=== PATIENT | female | born 1965 | race Caucasian/White ===

== ENCOUNTER 2024-04-28 21:08 | Outpatient (REF) | payer OTHER, SELFPAY | END 2024-04-28 21:09 | disposition home or self-care (01) | LOC: LAB 21:08 | PROVIDERS: Visit Provider Obstetrics & Gynecology | DX: Z01.419 Encounter for gynecological examination (general) (routine) without abnormal findings (principal) | CPT/HCPCS: 87624; 88175 ==

== ENCOUNTER 2025-07-07 16:17 | Outpatient (OUT) | payer OTHER, SELFPAY ==
--- OUTSIDE RECORDS SUMMARY | 2025-07-07 16:36 | XMS_ITS | CCD ---
Author Organization [facility] Care Team Providers Care Pcu Rn Name Role Phone DR DELROY HERNANDEZ Primary Care Unavailable DELFINO, DR JUSTICE Attending Unavailable DEFLINO, DR JUSTICE Consulting Unavailable DELFINO, DR JUSTICE Admitting Unavailable DELROY HERNANDEZ Primary Care Physician Brijesh Galvan Unavailable Jose Alfredo Sheffield II Unavailable MD Delroy Hernandez Primary Care Provider MD Micheal Puga Attending Provider DO Kurtis Tyler Attending Provider Nemesio Meadows Unavailable Gina Gonzalez Unavailable MD Delroy Hernandez Primary Care Provider [phone] PAUL Gonzalez Attending Provider Delmer Saleh Attending Provider MD Delroy Hernandez Primary Care Provider PAUL Gonzalez Attending Provider Delmer Saleh Attending Provider Delmer Saleh Attending Provider [phone] MD Delroy Hernandez Primary Care Provider PAUL Gonzalez Attending Provider Brijesh Cadena Unavailable MD Delroy Hernandez Primary Care Provider PAUL Gonzalez Attending Provider [phone] MD Brijesh Cadena Attending Provider MD Micheal Puga Referring Provider [phone] MD Delroy Hernandez Primary Care Provider [phone] Delroy Hernandez Unavailable MD Delroy Hernandez Primary Care Provider MD Brijesh Cadena Attending Provider MD Delroy Hernandez Primary Care Provider MD Jose Alfredo Sheffield II Attending Provider DO Kurtis Tyler Attending Provider MD Delroy Hernandez Referring Provider [phone] Self, Referral Attending Provider Unavailable MD Delroy Hernandez Primary Care Provider MD Sachin Medina Attending Provider NONE, XXXX Referring Unavailable STANG, WET END HELPER April L Admitting Unavailable STANG, WET END HELPER April L Attending Unavailable NONE, XXXX Referring Unavailable Micheal PUGA Attending Unavailable Micheal PUGA Admitting Unavailable Micheal PUGA Attending Unavailable NONE, XXXX Referring Unavailable Micheal PUGA Admitting Unavailable Micheal PUGA Attending Unavailable EDD, Micheal J Referring Unavailable PUGA, Micheal J Admitting Unavailable PUGA, Micheal J Referring Unavailable PUGA, Micheal J Admitting Unavailable PUGA, Micheal J Attending Unavailable EDD, Micheal J Attending Unavailable PUGA, Micheal J Admitting Unavailable [place], Basviraj X Attending Unavailable EDD, Micheal J Referring Unavailable NONE, XXXX Referring Unavailable Micheal PUGA J Admitting Unavailable Micheal PUGA Attending Unavailable MD Delroy Hernandez Attending Provider MD Jose Alfredo Sheffield II Attending Provider [phone] MD Delroy Hernandez Primary Care Provider [phone] MD Delroy Hernandez Primary Care Provider MD Jose Alfredo Sheffield II Attending Provider DO Kurtis Liu Attending Provider DO Delmer Saleh Attending Provider [phone] Delroy Hernandez MD Primary Care Provider Jose Alfredo Sheffield MD Attending Provider [facility] Kurtis AYON Attending Provider Delmer Saleh DO Attending Provider [phone] Delroy Hernandez MD Attending Provider [phone] Delroy Hernandez MD Primary Care Provider Maria Isabel Larry DO Attending Provider Delroy Hernandez MD Primary Care Provider Sachin Medina MD Attending Provider [facility] DOKurtis Attending [facility] Admitting Unavailable [facility], Kurtis Rodriguez Attending Unavailable David, Delroy E Primary Care Unavailable Jose Alfredo Sheffield II Attending Unavailabl e Hernandez, Delroy E Primary Care Unavailable Jose Alfredo Sheffield II Admitting Unavailabl e Hernandez, Delroy E Primary Care Unavailable Jose Alfredo Sheffield II Admitting Unavailabl e Jose Alfredo Sheffield II Attending Unavailabl e DelfinoDelmer Attending Unavailable Hernandez, Delroy E Primary Care Unavailable Delfino, Delmer Admitting Unavailable DelfinoDelmer Attending Unavailable Hernandez, Delroy E Primary Care Unavailable Delfino, Delmer Admitting Unavailable Hernandez, Delroy E Primary Care Unavailable Delroy Hernandez Attending Unavailable David, Delroy E Admitting Unavailable Hernandez, Delroy E Primary Care Unavailable Maria Isabel Larry Admitting Unavailable Maria Isabel Larry Attending Unavailable [facility], Kurtis Rodriguez Admitting Unavailable [facility], Kurtis Rodriguez Attending Unavailable Delroy Hernandez E Primary Care Unavailable Delroy Hernandez MD Primary Care Provider ALISHA CASAS Attending Unavailable Delroy Hernandez MD Primary Care Provider Delroy Hernandez MD Attending Provider Allergies Allergy Classification Reported Allergen(s) Allergy Type Date of Onset Reaction(s) Facility (2 sources) celecoxib; Translations: [CeleBREX] Drug Allergy 01-30-20 [facility] (20 sources) oxyCODONE; Translations: [oxyCODONE] Drug Allergy 01-30-20 20 Itching, Itching, tongue swelling [facility] Comment on above: Onset Date: 09/25/20 13 (1 source) Sulfonamides (Antibiotic) Drug allergy (disorder) 04-18-20 13 [facility] (20 sources) celecoxib; Translations: [celecoxib] Drug Allergy 02-08-20 22 Unknown (qualifier value), hives [facility] [employer] Other (18 sources) oxyCODONE; Translations: [oxycodone] Drug Allergy 08-01-20 23 Unknown (qualifier value), Itching, Other [facility] (17 sources) Sulfonamides (Antibiotic); Translations: [sulfa drugs] Drug allergy Unknown (qualifier value) [facility] (15 sources) oxyCODONE Drug Allergy tongue swelling [facility] [employer] Other (15 sources) Sulf-10 Drug allergy hives [facility] [employer] Other (20 sources) Sulfonamides (Antibiotic); Translations: [Sulfa (Sulfonamide Antibiotics)] Allergy to substance 02-08-20 Hives, Hives, SULFA DRUGS [facility] Comment on above: Onset Date: 06/11/20 17 (5 sources) Acetaminophen / oxyCODONE Drug Allergy 09-25-20 13 Unknown [employer] Other (17 sources) Codeine Drug Allergy 06-11-20 17 CODEINE DERIVATIVES [facility] Comment on above: Onset Date: 06/11/20 17 (5 sources) methylPREDNISolone Drug Allergy 06-11-20 17 SOLU-MEDROL [facility] [employer] Other (7 sources) Substance with sulfonamide structure and antibacterial mechanism of action (substance) Drug allergy 06-11-20 17 SULFA DRUGS [facility] [employer] Other (4 sources) Acetaminophen Drug Allergy 03-19-20 24 Unknown Reaction [facility] (1 source) celecoxib Drug Allergy 03-16-20 25 [facility] (1 source) Codeine Drug Allergy 03-16-20 25 [facility] (1 source) oxyCODONE Drug Allergy 03-16-20 [facility] (2 sources) celecoxib Drug Allergy 08-01-20 Other [facility] (2 sources) Sulfanilamide Allergy to substance 08-01-20 Other [facility] Medications Current Medications Medication Drug Class(es) Dates Sig (Normalized) Sig (Original) acetaminophen 325 mg oral capsule (17 sources) Start: 02-10-2025 take 1 capsule by mouth every four to six hours as needed for pain Acetaminophen 325 mg capsule Active 325 MG PO EVERY 4-6 HOURS as needed for fever or pain February 10, 2025 12:00am Complies with drug therapy take 1 tablet by mouth every fou r hours ascorbic acid 226 mg / beta carotene 33484 unt / cuprous oxide 0.8 mg / dl-alpha tocopheryl acetate 200 unt / zinc oxide 34.8 mg oral capsule (2 sources) Vitamin C Start: 09-02-2024 take 1 capsule by mouth once daily Vitamins A,C,A-Gxnv-Hsdjbp (Preservision Areds) 4,296 mcg-226 mg-90 mg capsule Active 1 CAP PO Daily September 02, 2024 12:00am Complies with drug therapy clobetasol propionate 0.5 mg/ml topical cream (4 sources) Corticosteroid Start: 05-31-2025 clobetasol (Te movate) 0.05 % cream Indications: Lichen sclerosus , Vulvar itching Apply topically in the morning and before bedtime. 15 g 05/31/2025 Active Start: 05-31-2025 clobetasol (Te movate) 0.05 % cream Indications: Lichen sclerosus , Vulvar itching Apply topically in the morning and before bedtime. 15 g 05/31/2025 Active End: 05-31-2025 clobetasol (Temovate) 0.05 % cream Apply topically in the morning and before bedtime. 05/31/2025 Discontinued (Reorder) estrogens, conjugated (halfway) 0.625 mg/ml vaginal cream (2 sources) Estrogen Start: 05-31-2025 Estrogens Conj ugated (Premarin) 0.625 MG/GM cream Indications: Dyspareunia in female , Vaginal dryness , Hx of hysterectomy for benign disease , Hx of BSO (bilateral salpingo-oophorectomy) Insert 0.5 g into the vagina See administration instructions Take 0.5 gram at bedtime for 2 weeks and then take 0.5 gram on Saturday, Saturday, and Saturday 30 g 3 05/31/2025 Active Start: 05-31-2025 Estrogens Conj ugated (Premarin) 0.625 MG/GM cream Indications: Dyspareunia in female , Vaginal dryness , Hx of hysterectomy for benign disease , Hx of BSO (bilateral salpingo-oophorectomy) Insert 0.5 g into the vagina See administration instructions Take 0.5 gram at bedtime for 2 weeks and then take 0.5 gram on Saturday, Saturday, and Saturday 30 g 3 05/31/2025 Active Fiber (4 sources) Fiber Active hydroCHLOROthiazide 12.5 mg oral tablet (20 sources) Thiazide Diuretic Start: 022 End: 025 take 1 tablet by mouth once daily Hydrochlorothiazide 12.5 mg tablet Active 12.5 MG PO Daily June 30, 2025 9:02am Complies with drug therapy Start: 03-17-2021 hydrochlorothi azide 25 mg oral tablet 12.5 mg = 0.5 tab(s), Oral, Daily, High blood pressure Start Date: 03/17/21 Status: Ordered take 0.5 tablet by m outh once daily hydroCHLOROthiazide 25 MG 1/2 TABLET Orally Once a day Active Leg Brace (3 sources) Start: 06-05-2024 Leg Brace Acti ve 0 .Route June 04, 2024 11:00pm As directed Start: 06-05-2024 Leg Brace Acti ve 0 .Route June 05, 2024 12:00am As directed Leg Brace misc (4 sources) Start: 06-05-2024 Leg Brace misc Active 0 .Route June 05, 2024 12:00am As directed Start: 06-05-2024 Leg Brace misc Active 0 .Route June 04, 2024 11:00pm As directed levothyroxine sodium 0.075 mg oral tablet (20 sources) l-Thyroxine Start: 03-16-2025 take 1 tablet by mouth once daily Levothyroxine 75 mcg tablet Active 75 MCG PO Daily March 16, 2025 1:00pm Complies with drug therapy Start: 05-06-2024 End: 03-16-2025 take 1 tablet by mouth once daily Levothyroxine 75 mcg tablet Discontinued 0 .ROUTE .COMPLEX July 31, 2024 10:42pm March 16, 2025 1:01pm Take 1 tablet by mouth once daily Start: 05-06-2024 End: 07-31-2024 take 1 tablet by mouth once daily Levothyroxine 75 mcg tablet Discontinued 0 .ROUTE .COMPLEX May 06, 2024 12:56pm July 31, 2024 10:43pm Take 1 tablet by mouth once daily Start: 05-06-2024 End: 07-31-2024 take 1 tablet by mouth once daily Levothyroxine 75 mcg tablet Discontinued 0 .ROUTE .COMPLEX May 06, 2024 11:56am July 31, 2024 9:43pm Take 1 tablet by mouth once daily Start: 05-06-2024 End: 07-31-2024 take 1 tablet by mouth once daily Levothyroxine Discontinued 0 .ROUTE .COMPLEX May 06, 2024 11:56am July 31, 2024 9:43pm Take 1 tablet by mouth once daily Start: 05-06-2024 take 1 tablet by larry th once daily Levothyroxine Active 0 .ROUTE .COMPLEX May 06, 2024 12:56pm Take 1 tablet by mouth once daily Start: 03-17-2021 End: 05-06-2024 take 1 tablet by mouth once daily Levothyroxine (Synthroid) 75 mcg Tablet Discontinued 75 MCG PO Daily February 07, 2022 12:00am May 06, 2024 12:56pm Start: 03-17-2021 take 1 tablet by larry th once daily levothyroxine 75 mcg (0.075 mg) Tab 75 mcg = 1 tab(s), Oral, Daily, Refills(s) 0 Start Date: 03/12/23 Status: Ordered Start: 03-17-2021 Synthroid 75 m cg (0.075 mg) Tab 75 mcg = 1 tab(s), Oral, Thyroid Start Date: 03/17/21 Status: Ordered 3 ml liraglutide 6 mg/ml pen injector (10 sources) GLP-1 Receptor Agonist Start: 10-31-2022 inject 0.6 mg by subcutaneous injection once daily, then inject 1.2 mg by subcutaneous injection once daily meloxicam 7.5 mg oral tablet (10 sources) Nonsteroidal Anti-inflammatory Drug Start: 03-17-2021 take 1 tablet by mouth once daily meloxicam 7.5 mg oral tablet 7.5 mg = 1 tab(s), Oral, Daily, Arthritis Start Date: 03/17/21 Status: Ordered 24 hr metFORMIN hydrochloride 500 mg extended release oral tablet (2 sources) Biguanide Start: 12-07-2022 take 1 tablet by mouth at dinner, then take 2 tablets by mouth once daily metFORMIN HCl ER 500 MG 1 tablet with evening meal for 7 days then 2 tablets with evening meal thereafter Orally Once a day for 30 day(s) Nov, Active 24 hr metoprolol succinate 50 mg extended release oral tablet (20 sources) beta-Adrenergic Shira Start: 03-13-2023 End: 03-13-2023 take 1 tablet by mouth once daily Toprol XL 50 mg Tab-ER 50 mg = 1 tab(s), Oral, Daily, # 30 tab(s), Refills(s) 1, Pharmacy: [facility], 167.6, cm, 03/12/23 1:31:00 EDT, Height/Length Dosing, 114.7, kg, 03/12/23 5:30:00 EDT, Weight Dosing Start Date: 03/13/23 Status: Ordered Start: 03-12-2023 End: 03-12-2023 Toprol XL 50 mg Tab-ER 50 mg = 1 tab(s), Tab-ER, Oral, Start date 03/12/23 9:00:00 EDT, 03/12/23 7:43:00 EDT Start Date: 03/12/23 Stop Date: 03/12/23 Status: Completed Start: 08-01-2022 End: 07-27-2023 metoprolol 25 mg ER Tab 12.5 mg = 0.5 tab(s), Oral, Daily, 12.5 mg, X 90 day(s), # 45 tab(s), Refills(s) 3, Pharmacy: [facility], 167, cm, 07/09/22 13:48:00 EDT, Height/Length Dosing, 118, kg, 07/09/22 13:48:00 EDT, Weight Dosing Start Date: 08/01/22 Stop Date: 07/27/23 Status: Ordered Start: 08-01-2022 take 1 tablet by larry th once daily metoprolol 25 mg ER Tab 25 mg = 1 tab(s), Oral, Daily, # 30 tab(s), Refills(s) 0 Start Date: 08/01/22 Status: Ordered Start: 02-07-2022 End: 03-19-2024 take 2 tablets by mouth once daily Metoprolol Succinate (Toprol Xl) 25 mg Tablet Extended Release 24 Hr Discontinued 12.5 MG PO Daily February 07, 2022 12:00am March 19, 2024 9:08am Start: 03-17-2021 Metoprolol suc cinate 25 mg ER Tablet 12.5 mg, Oral, Daily, High blood pressure Start Date: 03/17/21 Status: Ordered take 1 tablet by larry th twice daily take 0.5 tablet by m outh twice daily Toprol XL 25 MG 1/2 TABLET Orally TWICE A DAY Active take 0.5 tablet by m outh once daily Toprol XL 25 MG 1/2 TABLET Orally Once a day Active Multivitamin preparation (20 sources) Start: 03-12-2023 take 1 tablet by mouth once daily multivitamin 1 tab, Oral, Daily, Refill(s) 0 Start Date: 03/12/23 Status: Ordered Start: 02-07-2022 take 1 tablet by larry th once daily Multivitamin Active 1 TAB PO Daily February 06, 2022 11:00pm Start: 02-07-2022 take 1 tablet by larry th once daily Multivitamin Active 1 TAB PO Daily February 07, 2022 12:00am Multivitamin Act lauren Multivitamin Tablet (4 sources) Start: 02-07-2022 take 1 tablet by mouth once daily Multivitamin Tablet Active 1 TAB PO Daily February 07, 2022 12:00am Complies with drug therapy Start: 02-07-2022 take 1 tablet by larry th once daily Start: 02-07-2022 take 1 tablet by larry th once daily Multivitamin Tablet Active 1 TAB PO Daily February 07, 2022 12:00am Start: 02-07-2022 take 1 tablet by larry th once daily Multivitamin Tablet Active 1 TAB PO Daily February 06, 2022 11:00pm pantoprazole 40 mg delayed release oral tablet (20 sources) Proton Pump Inhibitor Start: 03-16-2025 take 1 tablet by mouth once daily Pantoprazole 40 mg tablet,delayed release (DR/EC) Active 40 MG PO Daily March 16, 2025 1:01pm 40 mg orally daily; Complies with drug therapy Start: 09-07-2024 End: 09-08-2024 take 1 tablet by mouth once daily Pantoprazole Discontinued 0 .ROUTE .COMPLEX September 07, 2024 9:37pm September 08, 2024 7:25am Take 1 tablet by mouth once daily Start: 06-08-2024 End: 03-16-2025 Pantoprazole 40 mg tablet,de layed release (DR/EC) Discontinued 40 MG .ROUTE Daily February 22, 2025 8:35am March 16, 2025 1:01pm 40 mg daily; Start: 06-08-2024 End: 09-07-2024 take 1 tablet by mouth once daily Pantoprazole Discontinued 0 .ROUTE .COMPLEX June 08, 2024 9:01am September 07, 2024 9:37pm Take 1 tablet by mouth once daily Start: 06-08-2024 take 1 tablet by larry once daily Pantoprazole Active 0 .ROUTE .COMPLEX June 08, 2024 10:01am Take 1 tablet by mouth once daily Start: 03-17-2021 take 1 tablet by larry once daily pantoprazole 40 mg Oral EC Tab 40 mg = 1 tab(s), Oral, Daily, Control of stomach acid Start Date: 03/17/21 Status: Ordered Start: 03-17-2021 End: 06-08-2024 take 1 tablet by mouth once daily Pantoprazole (Protonix) 40 mg Tablet,Delayed Release (Dr/Ec) Discontinued 40 MG PO Daily February 07, 2022 12:00am March 11, 2024 9:36pm Protonix Active Potassium (7 sources) Potassium Active potassium chloride 10 meq extended release oral capsule (20 sources) Start: 03-16-2025 take 1 capsule by mouth once daily Potassium Chloride 10 mEq capsule, extended release Active 10 MEQ PO Daily March 16, 2025 1:01pm Complies with drug therapy Start: 11-16-2024 take 1 capsule by mo [facility] once daily at mealtime Potassium Chloride 10 mEq capsule, extended release Active 0 .ROUTE .COMPLEX November 16, 2024 10:34pm TAKE 1 CAPSULE BY MOUTH ONCE DAILY WITH FOOD Start: 11-16-2024 End: 03-16-2025 take 1 capsule by mouth once daily at mealtime Potassium Chloride 10 mEq capsule, extended release Discontinued 0 .ROUTE .COMPLEX 90 November 16, 2024 10:34pm March 16, 2025 1:01pm TAKE 1 CAPSULE BY MOUTH ONCE DAILY WITH FOOD Start: 03-19-2024 End: 11-16-2024 take 1 capsule by mouth once daily Potassium Chloride 10 mEq capsule, extended release Discontinued 10 MEQ PO Daily March 19, 2024 12:00am November 16, 2024 10:35pm Start: 05-01-2023 End: 10-28-2023 potassium chloride 10 mEq Ca p-ER Refills(s) 0 Start Date: 05/01/23 Status: Ordered predniSONE 20 mg oral tablet (2 sources) Start: 06-18-2023 take 2 tablets by mouth every twenty-four hours predniSONE 20 MG 2 tablets Orally Once a day for 5 days May, Active rivaroxaban 20 mg oral tablet (20 sources) Factor Xa Inhibitor Start: 04-20-2025 take 1 tablet by mouth once daily Rivaroxaban (Xarelto) 20 mg tablet Active 0 .ROUTE .COMPLEX 90 April 20, 2025 8:14am TAKE 1 TABLET BY MOUTH ONCE DAILY Complies with drug therapy Start: 03-17-2021 End: 04-20-2025 take 1 tablet by mouth once daily Rivaroxaban (Xarelto) 20 mg tablet Discontinued 20 MG PO Daily 90 September 02, 2024 9:21am April 20, 2025 8:14am 0.25 mg, 0.5 mg dose 1.5 ml semaglutide 1.34 mg/ml pen injector (3 sources) Start: 01-11-2023 Ozempic (0.25 or 0.5 MG/DOSE) 2 MG/1.5ML 0.25mg Subcutaneous Once Weekly for 28 days Dec, Active Start: 09-19-2022 Ozempic (0.25 or 0.5 MG/DOSE) 2 MG/1.5ML 0.25mg once weekly for 4 weeks, then 0.5mg once weekly for 4 weeks Subcutaneous Once Weekly for 28 days Aug, Active SUMAtriptan 25 mg oral tablet (20 sources) Serotonin-1b and Serotonin-1d Receptor Agonist Start: 03-17-2021 Imitrex 25 mg Tab 25 mg = 1 tab(s), Oral, As Directed, PRN Migraine headache, # 9 tab(s), Refills(s) 0 Start Date: 03/12/23 Status: Ordered Tylenol 8 HR Arthritis Pain (11 sources) Start: 03-12-2023 take 2 tablets by mouth every twelve hours Tylenol 8 HR Arthritis Pain = 2 tab(s), Oral, q12hr, Refills(s) 0 Start Date: 03/12/23 Status: Ordered Vitamins A,C,X-Dsvh-Emsbhk (Preservision Areds) 4,296 mcg-226 mg-90 mg capsule (3 sources) Start: 09-02-2024 take 1 capsule by mouth once daily Vitamins A,C,B-Qwvu-Pwxpdl (Preservision Areds) 4,296 mcg-226 mg-90 mg capsule Active 1 CAP PO Daily September 02, 2024 12:00am Start: 09-02-2024 take 1 capsule by [facility] once daily Vitamins A,C,Z-Jyrd-Rnrauo (Preservision Areds) 4,296 mcg-226 mg-90 mg capsule Active 1 CAP PO Daily September 01, 2024 11:00pm Completed/Discontinued Medications Medication Drug Class(es) Dates Sig (Normalized) Sig (Original) azithromycin 250 mg oral tablet (6 sources) Macrolide Antimicrobial Start: 07-02-2024 End: 09-02-2024 Azithromycin 250 mg tablet Discontinued 0 PO .COMPLEX July 02, 2024 12:00am September 02, 2024 8:31am For 250 mg dose pack: take 500 mg today (day 1), then 250 mg for 4 days (days 2-5) PO Start: 07-02-2024 End: 09-02-2024 Azithromycin Discontinued 0 PO .COMPLEX July 01, 2024 11:00pm September 02, 2024 7:31am For 250 mg dose pack: take 500 mg today (day 1), then 250 mg for 4 days (days 2-5) PO Start: 07-02-2024 Azithromycin A ctive 0 PO .COMPLEX July 02, 2024 12:00am For 250 mg dose pack: take 500 mg today (day 1), then 250 mg for 4 days (days 2-5) PO 24 hr dilTIAZem hydrochloride 240 mg extended release oral capsule (20 sources) Calcium Channel Shira Start: 03-19-2024 End: 03-01-2025 take 1 capsule by mouth once daily, then take 1 capsule by mouth every twenty-four hours Diltiazem Hcl (Cardizem Cd) 240 mg capsule,extended release 24hr Discontinued 240 MG PO Daily March 19, 2024 9:26am September 02, 2024 9:21am Start: 03-25-2023 End: 09-21-2023 Cardizem CD 240 mg/24 hours Cap-ER 240 mg = 1 cap(s), Oral, Daily, # 90 cap(s), Refills(s) 1, Pharmacy: [facility], 167, cm, 09/06/23 11:53:00 EDT, Height/Length Dosing, 117.4, kg, 09/06/23 11:53:00 EDT, Weight Dosing Start Date: 09/18/23 Status: Ordered Cardizem Active fluconazole 150 mg oral tablet (11 sources) Azole Antifungal Start: 04-08-2024 End: 04-28-2024 Fluconazole 150 mg tablet Discontinued 150 MG PO Q3D April 08, 2024 12:00am April 28, 2024 11:27am take 1 tablet by mouth once Pantoprazole 40 mg tablet,delayed release (DR/EC) (4 sources) Start: 09-07-2024 End: 09-08-2024 take 1 tablet by mouth once daily Pantoprazole 40 mg tablet,delayed release (DR/EC) Discontinued 0 .ROUTE .COMPLEX September 07, 2024 10:37pm September 08, 2024 8:25am Take 1 tablet by mouth once daily Start: 09-07-2024 End: 09-08-2024 take 1 tablet by mouth once daily Pantoprazole 40 mg tablet,delayed release (DR/EC) Discontinued 0 .ROUTE .COMPLEX September 07, 2024 9:37pm September 08, 2024 7:25am Take 1 tablet by mouth once daily Start: 06-08-2024 End: 09-07-2024 take 1 tablet by mouth once daily Pantoprazole 40 mg tablet,delayed release (DR/EC) Discontinued 0 .ROUTE .COMPLEX June 08, 2024 10:01am September 07, 2024 10:37pm Take 1 tablet by mouth once daily Start: 06-08-2024 End: 09-07-2024 take 1 tablet by mouth once daily Pantoprazole 40 mg tablet,delayed release (DR/EC) Discontinued 0 .ROUTE .COMPLEX June 08, 2024 9:01am September 07, 2024 9:37pm Take 1 tablet by mouth once daily psyllium 525 mg oral capsule (8 sources) Start: 04-20-2021 take 8 capsules by mouth once daily Metamucil 525 mg oral capsule 1,050 mg = 2 cap(s), Oral, Daily, Take 2 hour apart from the other medications with at least 8 ounces of water, # 160 cap(s), Refills(s) 1, Pharmacy: [facility], 167.7, cm, 04/20/21 8:58:00 EDT, Height/Length Dosing, 112, kg... Start Date: 04/20/21 Status: Ordered Triamcinolone (12 sources) Corticosteroid Start: 12-20-2021 Kenalog -40 mg Nov, 120 mg Problems Active Problems Problem Classification Problem Date Documented Da te Episodic/Chronic Acquired foot deformities (2 sources) Acquired hammer toe of left foot; Translations: [Other hammer toe(s) (acquired), left foot] Chronic Acquired foot deformities (2 sources) Bunion; Translations: [Bunionette of left foot] Episodic Administrative/social admission (3 sources) Persons encountering health services in other specified circumstances Episodic Allergic reactions (4 sources) Inflammatory dermatosis; Translations: [Dermatitis, unspecified] Episodic Anxiety disorders (2 sources) Generalized anxiety disorder; Translations: [Generalized anxiety disorder] Chronic Cardiac dysrhythmias (20 sources) Unspecified atrial fibrillation; Translations: [Paroxysmal atrial fibrillation] Onset: 04-27-2022 Chronic Cardiac dysrhythmias (20 sources) Palpitations; Translations: [Palpitations] 03-17-2021 Episodic Esophageal disorders (20 sources) Swanson's esophagus; Translations: [Gastroesophageal reflux disease without esophagitis] Onset: 09-12-2021 Resolved: 09-12-2021 04-20-2021 Chronic Comment on above: Problem List clean-u p per request of Phys. EHR Cmte Essential hypertension (20 sources) Hypertensive disorder; Translations: [Essential (primary) hypertension] Onset: 03-12-2023 03-17-2021 Chronic Fever of unknown origin (2 sources) Fever; Translations: [Fever, unspecified] Episodic Headache; including migraine (2 sources) Chronic migraine without aura, non-refractory; Translations: [Migraine without aura, not intractable, without status migrainosus] Chronic Immunizations and screening for infectious disease (1 source) Encounter for screening for human papillomavirus (HPV); Translations: [ENC SCREENING HUMAN PAPILLOMAVIRUS] Onset: 04-11-2022 Episodic Intestinal infection (16 sources) Clostridium difficile diarrhea 03-28-2021 Episodic Comment on above: Problem added second solomon to documenting Active C-Diff. Problem added second solomon to documenting Active C-Diff. Menstrual disorders (4 sources) Excessive and frequent menstruation; Translations: [Excessive and frequent menstruation with regular cycle] Onset: 03-24-2007 Resolved: 06-07-2017 Chronic Mycoses (2 sources) Candidiasis; Translations: [Candidiasis, unspecified] Episodic Nausea and vomiting (2 sources) Nausea and vomiting; Translations: [Nausea with vomiting, unspecified] Episodic Nonspecific chest pain (2 sources) Chest pain; Translations: [Chest pain, unspecified] Episodic Osteoarthritis (12 sources) Localized, primary osteoarthritis of the ankle and/or foot; Translations: [Primary osteoarthritis, left ankle and foot] Onset: 07-23-2024 06-12-2024 Chronic Other and unspecified benign neoplasm (16 sources) Gastric polyp 04-20-2021 Episodic Other and unspecified benign neoplasm (16 sources) Polyp of colon 05-25-2021 Episodic Other and unspecified benign neoplasm (15 sources) History of polyp of colon; Translations: [Personal history of colonic polyps] Episodic Other circulatory disease (2 sources) Elevated blood-pressure reading without diagnosis of hypertension; Translations: [Elevated blood-pressure reading, without diagnosis of hypertension] Episodic Other connective tissue disease (1 source) Presence of unspecified orthopedic joint implant; Translations: [Presence of unspecified orthopedic joint implant] Chronic Other connective tissue disease (3 sources) History of total replacement of right hip joint; Translations: [Presence of right artificial hip joint] Chronic Other connective tissue disease (2 sources) Enthesopathy of foot region; Translations: [Other enthesopathy of left foot and ankle] Episodic Other connective tissue disease (1 source) Pain in left foot; Translations: [Pain in left foot] Episodic Other connective tissue disease (1 source) Peroneal tendinitis, left leg; Translations: [Peroneal tendinitis, left leg] Episodic Other connective tissue disease (1 source) Pain in left foot; Translations: [Pain in left foot] Episodic Other connective tissue disease (1 source) Peroneal tendinitis; Translations: [Peroneal tendinitis, left leg] Episodic Other diseases of bladder and urethra (2 sources) Overactive bladder; Translations: [Overactive bladder] Chronic Other female genital disorders (2 sources) Dyspareunia; Translations: [Unspecified dyspareunia] Chronic Other female genital disorders (2 sources) Pain in female genitalia on intercourse; Translations: [Unspecified dyspareunia] 05-31-2025 Chronic Other female genital disorders (2 sources) Vaginal dryness; Translations: [Other specified noninflammatory disorders of vagina] 05-31-2025 Episodic Other gastrointestinal disorders (2 sources) Irritable bowel syndrome with diarrhea; Translations: [Irritable bowel syndrome with diarrhea] Chronic Other gastrointestinal disorders (16 sources) Alteration in bowel elimination 04-20-2021 Episodic Other gastrointestinal disorders (2 sources) Altered bowel function; Translations: [Change in bowel habit] Episodic Other inflammatory condition of skin (2 sources) Pruritus of vulva; Translations: [Pruritus vulvae] 05-31-2025 Episodic Other lower respiratory disease (2 sources) Dyspnea; Translations: [Dyspnea, unspecified] Onset: 04-27-2022 Episodic Other lower respiratory disease (11 sources) Dyspnea on exertion; Translations: [Other forms of dyspnea] 03-19-2024 Episodic Other lower respiratory disease (8 sources) Other forms of dyspnea; Translations: [Other respiratory abnormalities] 03-19-2024 Episodic Other non-traumatic joint disorders (2 sources) Arthralgia of the lower leg; Translations: [Pain in left knee] Episodic Other non-traumatic joint disorders (2 sources) Arthralgia of the ankle and/or foot; Translations: [Pain in left ankle and joints of left foot] Episodic Other non-traumatic joint disorders (2 sources) Ankle instability; Translations: [Other instability, left ankle] Episodic Other non-traumatic joint disorders (2 sources) Arthralgia of the pelvic region and thigh; Translations: [Pain in left hip] Episodic Other non-traumatic joint disorders (16 sources) Pain in left knee; Translations: [Left knee pain] Onset: 06-12-2024 05-26-2024 Episodic Other nutritional; endocrine; and metabolic disorders (12 sources) Morbid obesity; Translations: [Morbid (severe) obesity due to excess calories] Onset: 03-12-2023 Chronic Other nutritional; endocrine; and metabolic disorders (4 sources) Morbid (severe) obesity due to excess calories Chronic Other nutritional; endocrine; and metabolic disorders (9 sources) Obesity; Translations: [Obesity, unspecified] Chronic Other nutritional; endocrine; and metabolic disorders (10 sources) Body mass index 40+ - severely obese; Translations: [Body mass index (BMI) 40.0-44.9, adult] Chronic Other nutritional; endocrine; and metabolic disorders (2 sources) Body mass index (BMI) 40.0-44.9, adult; Translations: [BMI 40.0-44.9, adult] Chronic Other skin disorders (2 sources) Lichen sclerosus et atrophicus; Translations: [Circumscribed scleroderma] 05-31-2025 Chronic Other skin disorders (2 sources) Eruption; Translations: [Rash and other nonspecific skin eruption] Episodic Other skin disorders (1 source) Corns and callosities; Translations: [Corns and callosities] Episodic Other skin disorders (1 source) Ingrowing nail; Translations: [Ingrowing nail] Episodic Other skin disorders (1 source) Callosity; Translations: [Corns and callosities] Episodic Other skin disorders (1 source) Ingrowing nail; Translations: [Ingrowing nail] Episodic Prolapse of female genital organs (2 sources) Midline cystocele; Translations: [Cystocele, midline] 05-31-2025 Chronic Residual codes; unclassified (7 sources) Sleep apnea; Translations: [Sleep apnea, unspecified] Chronic Residual codes; unclassified (1 source) Sleep apnea, unspecified Chronic Residual codes; unclassified (11 sources) Obstructive sleep apnea syndrome; Translations: [Obstructive sleep apnea (adult) (pediatric)] 03-19-2024 Chronic Residual codes; unclassified (8 sources) Obstructive sleep apnea (adult) (pediatric); Translations: [Obstructive sleep apnea (adult)(pediatric)] 03-19-2024 Chronic Residual codes; unclassified (1 source) Other specified postprocedural states Episodic Residual codes; unclassified (2 sources) History of hysterectomy for benign disease; Translations: [Acquired absence of both cervix and uterus] 05-31-2025 Episodic Residual codes; unclassified (2 sources) History of bilateral salpingo-oophorectomy ; Translations: [Acquired absence of other genital organ(s)] 05-31-2025 Episodic Skin and subcutaneous tissue infections (4 sources) Abscess of foot; Translations: [Cutaneous abscess of left foot] Episodic Spondylosis; intervertebral disc disorders; other back problems (10 sources) Radiculopathy, cervical region; Translations: [Cervical radiculopathy] Onset: 10-03-2017 09-18-2024 Episodic Thyroid disorders (20 sources) Hypothyroidism; Translations: [Hypothyroidism, unspecified] Onset: 03-12-2023 03-17-2021 Chronic Thyroid disorders (2 sources) Disorder of thyroid gland; Translations: [Disorder of thyroid, unspecified] Episodic Viral infection (2 sources) Herpes zoster with complication; Translations: [Zoster with other complications] Episodic Past or Other Problems Problem Classification Problem Date Documented Da te Episodic/Chronic Inflammation; infection of eye (except that caused by tuberculosis or sexually transmitteddisease) (2 sources) Contact blepharoconjunctivi tis; Translations: [Contact blepharoconjunctivi tis, left eye] Onset: 01-29-2019 Episodic Other and unspecified benign neoplasm (1 source) Benign neoplasm of stomach; Translations: [Fundic gland polyps of stomach, benign D13.1] Onset: 09-12-2021 Resolved: 09-12-2021 Episodic Other and unspecified benign neoplasm (1 source) Personal history of colonic polyps; Translations: [Personal history of colonic polyps Z86.010] Onset: 09-12-2021 Resolved: 09-12-2021 Episodic Other connective tissue disease (2 sources) Trochanteric bursitis, left hip Onset: 12-20-2021 Resolved: 03-21-2022 Episodic Other nervous system disorders (1 source) Anosmia; Translations: [Anosmia] Onset: 07-14-2019 Episodic Other nervous system disorders (1 source) Loss of sense of smell; Translations: [Anosmia] Onset: 07-14-2019 Episodic Other non-traumatic joint disorders (2 sources) Pain in left hip Onset: 12-20-2021 Resolved: 03-21-2022 Episodic Other screening for suspected conditions (not mental disorders or infectious disease) (6 sources) Encounter for screening for malignant neoplasm of cervix; Translations: [Encounter for screening mammogram for malignant neoplasm of breast] Onset: 04-09-2022 Episodic Other upper respiratory infections (2 sources) Acute maxillary sinusitis; Translations: [Acute recurrent maxillary sinusitis] Onset: 04-03-2019 Episodic Residual codes; unclassified (2 sources) History of excision of intestinal structure; Translations: [Acquired absence of other specified parts of digestive tract] Onset: 07-28-2015 Episodic Sprains and strains (4 sources) Late effect of sprain AND/OR strain without tendon injury; Translations: [Strain of other muscles, fascia and tendons at shoulder and upper arm level, left arm, sequela] Onset: 12-08-2015 Episodic Unclassified (1 source) Contact with and (suspected) exposure to covid-19 Z20.822 Onset: 08-07-2022 Resolved: 08-07-2022 Unclassified (2 sources) Acute candidiasis of vulva and vagina; Translations: [Acute candidiasis of vulva and vagina] Viral infection (1 source) COVID-19 Onset: 08-07-2022 Resolved: 08-07-2022 Results Test Name Value Interpretation Reference Range Facility Alanine aminotransferase [En zymatic activity/volume] in Serum or PlasmaOrdered By: Kurtis Tyler on 05-27-2025 ALT [Catalytic activity/Vol] 15 U/L 752 [facility] Comment on above: Performed By: #### P ILLAR CBC, PILLAR CMP, PILLAR LIPID #### [address] Albumin [Mass/volume] in Ser um or Plasma by Bromocresol green (BCG) dye binding methoOrdered By: Kurtis Tyler on 05-27-2025 Albumin BCG dye [Mass/Vol] 4.3 g/dL 3.5-5.7 [facility] Alkaline phosphatase [Enzyma tic activity/volume] in Serum or PlasmaOrdered By: Kurtis Tyler on 05-27-2025 ALP [Catalytic activity/Vol] 80 U/L 34-104 [facility] Comment on above: Performed By: #### P ILLAR CBC, PILLAR CMP, PILLAR LIPID #### [facility] [address] [place] [address] Aspartate aminotransferase [ Enzymatic activity/volume] in Serum or PlasmaOrdered By: Kurtis Tyler on 05-27-2025 AST [Catalytic activity/Vol] 12 U/L Low 13-39 [facility] Comment on above: Performed By: #### P ILLAR CBC, PILLAR CMP, PILLAR LIPID #### [facility] [address] [place] [address] [place] Basophils [#/volume] in Bloo d by Automated countOrdered By: Kurtis Tyler on 05-27-2025 Basophils (Bld) [#/Vol] 0.0 10*3/uL 0.0-0.2 [facility] Comment on above: Result Comment: PERF ORMED BY: [place] [address] PATHOLOGIST PROCESS CONTROL OPERATOR BERENICE SLAUGHTER M.D. Performed By: #### P ILLAR CBC, PILLAR CMP, PILLAR LIPID #### [address] Basophils/100 leukocytes in Blood by Automated countOrdered By: Kurtis Tyler on 05-27-2025 Basophils/100 WBC (Bld) 0.4 % . [facility] Comment on above: Performed By: #### P ILLAR CBC, PILLAR CMP, PILLAR LIPID #### [facility] [address] [place] [address] Bilirubin.total [Mass/volume ] in Serum or PlasmaOrdered By: Kurtis Tyler on 05-27-2025 Bilirubin [Mass/Vol] 0.4 mg/dL 0.3-1.0 [facility] Comment on above: Performed By: #### P ILLAR CBC, PILLAR CMP, PILLAR LIPID #### [facility] [address] [place] [address] [place] Calcium [Mass/volume] in Ser um or PlasmaOrdered By: Kurtis Tyler on 05-27-2025 Calcium [Mass/Vol] 9.3 mg/dL 8.6-10.3 [facility] Comment on above: Performed By: #### P ILLAR CBC, PILLAR CMP, PILLAR LIPID #### [facility] [address] [place] [id number] [place] Carbon dioxide, total [Moles /volume] in Serum or PlasmaOrdered By: Kurtis Tyler on 05-27-2025 CO2 [Moles/Vol] 30.3 mmol/L 21.0-31.0 [facility] Comment on above: Performed By: #### P ILLAR CBC, PILLAR CMP, PILLAR LIPID #### [facility] [address] [place] [address] [place] Chloride [Moles/volume] in S jered or PlasmaOrdered By: Kurtis Tyler on 05-27-2025 Chloride [Moles/Vol] 105 mmol/L 98-107 [facility] Comment on above: Performed By: #### P ILLAR CBC, PILLAR CMP, PILLAR LIPID #### [facility] [address] [place] [address] [place] Cholesterol [Mass/volume] in Serum or PlasmaOrdered By: Kurtis Tyler on 05-27-2025 Cholesterol [Mass/Vol] 186 mg/dL 140-200 [facility] Comment on above: Chol less than 200 m g/dl low riskChol 201-239 mg/dl borderline riskChol 240 mg/dl and greater high risk Result Comment: Chol less than 200 mg/dl low risk Chol 201-239 mg/dl borderline risk Chol 240 mg/dl and greater high risk Performed By: #### P ILLAR CBC, PILLAR CMP, PILLAR LIPID #### [facility] [address] [place] [id number] [place] Cholesterol in HDL [Mass/vol ume] in Serum or PlasmaOrdered By: Kurtis Tyler on 05-27-2025 Cholesterol in HDL [Mass/Vol] 84 mg/dL 23-92 [facility] Comment on above: HDL CHOL ATP-III CLA SSIFICATION Cardiovascular RiskHDL > or equal to 60 mg/dL LOWHDL < 40 mg/dL HIGH Result Comment: HDL CHOL ATP-III CLASSIFICATION Cardiovascular Risk HDL > or equal to 60 mg/dL LOW HDL < 40 mg/dL HIGH Performed By: #### P ILLAR CBC, PILLAR CMP, PILLAR LIPID #### [facility] [address] Cholesterol in LDL Calc [Mas s/Vol]Ordered By: Kurtis Tyler on 05-27-2025 Cholesterol in LDL [Mass/Vol] 77 mg/dL 0-100 [facility] Comment on above: LDL ATP III CLASSIFI CATIONLDL less than 100 mg/dL OptimalLDL 100-129 mg/dL Near or above optimalLDL 130-159 mg/dL Borderline highLDL 160-189 mg/dL HighLDL greater than 189 mg/dL Very high Cholesterol in VLDL Calc [Ma ss/Vol]Ordered By: Kurtis Tyler on 05-27-2025 Cholesterol in VLDL [Mass/Vol] 24 mg/dL [facility] Creatinine [Mass/volume] in Serum or PlasmaOrdered By: Kurtis Tyler on 05-27-2025 Creatinine [Mass/Vol] 0.75 mg/dL 0.60-1.20 [facility] Comment on above: Performed By: #### P ILLAR CBC, PILLAR CMP, PILLAR LIPID #### [address] Employee Comp Metabolic Pane burt 05-27-2025 Albumin [Mass/Vol] 4.3 g/dL Normal 3.5-5.7 [facility] Comment on above: Performed By: #### P ILLAR CBC, PILLAR CMP, PILLAR LIPID #### [address] GFR/1.73 sq M.predicted MDRD (S/P/Bld) [Vol rate/Area] mL/min/{1.73_m2} Normal [facility] Comment on above: Performed By: #### P ILLAR CBC, PILLAR CMP, PILLAR LIPID #### [facility] [address] Employee Complete Blood Coun ton 05-27-2025 Mean Corpuscular HGB Conc 33.3 g/dL Normal 32.0-35.0 [facility] Comment on above: Performed By: #### P ILLAR CBC, PILLAR CMP, PILLAR LIPID #### [address] NRBC% 0.1 /100{WBC} Normal 0-0.5 [facility] Comment on above: Performed By: #### P ILLAR CBC, PILLAR CMP, PILLAR LIPID #### [address] White Blood Count 8.5 [CFU]/mL Normal 3.8-11.6 [facility] Comment on above: Performed By: #### P ILLAR CBC, PILLAR CMP, PILLAR LIPID #### [address] Employee Lipid Profileon LDL Cholesterol,Calculate d 77 mg/dL Normal 0-100 [facility] Comment on above: Result Comment: LDL ATP III CLASSIFICATION LDL less than 100 mg/dL Optimal LDL 100-129 mg/dL Near or above optimal LDL 130-159 mg/dL Borderline high LDL 160-189 mg/dL High LDL greater than 189 mg/dL Very high Performed By: #### P ILLAR CBC, PILLAR CMP, PILLAR LIPID #### [address] Triglyceride w/Reflex 123 mg/dL Normal 0-149 [facility] Comment on above: Result Comment: TRIG ATP III CLASSIFICATION TRIG less than 150 mg/dL Normal TRIG 150-199 mg/dL Borderline high TRIG 200-500 mg/dL High TRIG greater than 500 mg/dL Very high Standard traceable to the Center for Disease Conrtrol and Prevention (CDC) test method. Performed By: #### P ILLAR CBC, PILLAR CMP, PILLAR LIPID #### [address] VLDL CHOLESTEROL 24 mg/dL Normal [facility] Comment on above: Performed By: #### P ILLAR CBC, PILLAR CMP, PILLAR LIPID #### [address] Eosinophils [#/volume] in Bl ood by Automated countOrdered By: Kurtis Tyler on 05-27-2025 Eosinophils (Bld) [#/Vol] 0.2 10*3/uL 0.0-0.45 [facility] Comment on above: Performed By: #### P ILLAR CBC, PILLAR CMP, PILLAR LIPID #### [facility] [address] [place] [address] [place] Eosinophils/100 leukocytes i n Blood by Automated countOrdered By: Kurtis Tyler on 05-27-2025 Eosinophils/100 WBC (Bld) 2.0 % . [facility] Comment on above: Performed By: #### P ILLAR CBC, PILLAR CMP, PILLAR LIPID #### [facility] [address] Erythrocyte distribution wid th [Ratio] by Automated countOrdered By: Kurtis Tyler on 05-27-2025 Erythrocyte distribution width (RBC) [Ratio] 13.8 % 11.9-15.3 [facility] Comment on above: Performed By: #### P ILLAR CBC, PILLAR CMP, PILLAR LIPID #### [facility] [address] [place] [address] [place] Erythrocytes [#/volume] in B lood by Automated countOrdered By: Kurtis Tyler on 05-27-2025 RBC (Bld) [#/Vol] 4.16 10*6/uL 3.60-5.00 [facility] Comment on above: Performed By: #### P ILLAR CBC, PILLAR CMP, PILLAR LIPID #### [facility] [address] [place] [address] [place] Glucose [Mass/volume] in Ser um or PlasmaOrdered By: Kurtis Tyler on 05-27-2025 Glucose [Mass/Vol] 86 mg/dL 70-100 [facility] Comment on above: Performed By: #### P ILLAR CBC, PILLAR CMP, PILLAR LIPID #### [facility] [address] [place] [address] [place] Hematocrit [Volume Fraction] of Blood by Automated countOrdered By: Kurtis Tyler on 05-27-2025 Hematocrit (Bld) [Volume fraction] 39.0 % 34.0-46.4 [facility] Comment on above: Performed By: #### P ILLAR CBC, PILLAR CMP, PILLAR LIPID #### [facility] [address] [place] [address] Hemoglobin [Mass/volume] in BloodOrdered By: Kurtis Tyler on 05-27-2025 Hemoglobin (Bld) [Mass/Vol] 13.0 g/dL 11.8-15.4 [facility] Comment on above: Performed By: #### P ILLAR CBC, PILLAR CMP, PILLAR LIPID #### [facility] [address] [place] [address] Leukocytes [#/volume] correc magaly for nucleated erythrocytes in Blood by Automated counOrdered By: Kurtis Tyler on 05-27-2025 WBC corrected for nucl RBC Auto (Bld) [#/Vol] 8.5 10*3/uL 3.8-11.6 [facility] Leukocytes [#/volume] in Blo od by Automated countOrdered By: Kurtis Tyler on 05-27-2025 WBC (Bld) [#/Vol] 8.5 10*3/uL 3.8-11.6 [facility] Comment on above: Performed By: #### P ILLAR CBC, PILLAR CMP, PILLAR LIPID #### [facility] [address] [place] [address] [place] Lymphocytes [#/volume] in Bl ood by Automated countOrdered By: Kurtis Tyler on 05-27-2025 Lymphocytes (Bld) [#/Vol] 2.9 10*3/uL 1.00-4.8 [facility] Comment on above: Performed By: #### P ILLAR CBC, PILLAR CMP, PILLAR LIPID #### [facility] [address] [place] [address] [place] Lymphocytes/100 leukocytes i n Blood by Automated countOrdered By: Kurtis Tyler on 05-27-2025 Lymphocytes/100 WBC (Bld) 34.0 % . [facility] Comment on above: Performed By: #### P ILLAR CBC, PILLAR CMP, PILLAR LIPID #### [facility] [address] MCH [Entitic mass] by Automa magaly countOrdered By: Kurtis Tyler on 05-27-2025 MCH (RBC) [Entitic mass] 31.2 pg 24.7-34.3 [facility] Comment on above: Performed By: #### P ILLAR CBC, PILLAR CMP, PILLAR LIPID #### [facility] [address] MCHC Auto (RBC) [Mass/Vol]Or dered By: Kurtis Tyler on 05-27-2025 MCHC (RBC) [Mass/Vol] 33.3 g/dL 32.0-35.0 [facility] MCV [Entitic volume] by Auto mated countOrdered By: Kurtis Tyler on 05-27-2025 MCV (RBC) [Entitic vol] 93.7 fL 80-100 [facility] Comment on above: Performed By: #### P ILLAR CBC, PILLAR CMP, PILLAR LIPID #### [address] Monocytes [#/volume] in Bloo d by Automated countOrdered By: Kurtis Tyler on 05-27-2025 Monocytes (Bld) [#/Vol] 0.5 10*3/uL 0.0-0.8 [facility] Comment on above: Performed By: #### P ILLAR CBC, PILLAR CMP, PILLAR LIPID #### [facility] [address] [place] [address] [place] Monocytes/100 leukocytes in Blood by Automated countOrdered By: Kurtis Tyler on 05-27-2025 Monocytes/100 WBC (Bld) 6.3 % . [facility] Comment on above: Performed By: #### P ILLAR CBC, PILLAR CMP, PILLAR LIPID #### [facility] [address] [place] [address] Neutrophils [#/volume] in Bl ood by Automated countOrdered By: Kurtis Tyler on 05-27-2025 Neutrophils (Bld) [#/Vol] 4.9 10*3/uL 1.8-7.7 [facility] Comment on above: Performed By: #### P ILLAR CBC, PILLAR CMP, PILLAR LIPID #### [facility] [address] [place] [address] Neutrophils/100 leukocytes i n Blood by Automated countOrdered By: Kurtis Tyler on 05-27-2025 Neutrophils/100 WBC (Bld) 57.3 % . [facility] Comment on above: Performed By: #### P ILLAR CBC, PILLAR CMP, PILLAR LIPID #### [facility] [address] [place] [address] No Panel InformationOrdered By: Kurtis Tyler on 05-27-2025 Estimated GFR (CKD-EPI) > 60.0 mL/Min [facility] Creatinine Clearance (Chem N/A [facility] Nucleated erythrocytes [Pres ence] in Blood by Automated countOrdered By: Kurtis Tyler on 05-27-2025 Nucleated RBC Auto Ql (Bld) 0.1 /100{WBC} 0-0.5 [facility] Platelet mean volume [Entiti c volume] in Blood by Automated countOrdered By: Kurtis Tyler on 05-27-2025 Platelet mean volume (Bld) [Entitic vol] 8.3 fL 6.3-10.7 [facility] Comment on above: Performed By: #### P ILLAR CBC, PILLAR CMP, PILLAR LIPID #### [facility] [address] [place] [address] Platelets [#/volume] in Bloo d by Automated countOrdered By: Kurtis Tyler on 05-27-2025 Platelets (Bld) [#/Vol] 292 10*3/uL 150-450 [facility] Comment on above: Performed By: #### P ILLAR CBC, PILLAR CMP, PILLAR LIPID #### [facility] [address] [place] [address] Potassium [Moles/volume] in Serum or PlasmaOrdered By: Kurtis Tyler on 05-27-2025 Potassium [Moles/Vol] 4.0 mmol/L 3.5-5.1 [facility] Comment on above: Performed By: #### P ILLAR CBC, PILLAR CMP, PILLAR LIPID #### [facility] [address] [place] [address] Protein [Mass/volume] in Ser um or PlasmaOrdered By: Kurtis Tyler on 05-27-2025 Protein [Mass/Vol] 6.9 g/dL 6.4-8.9 [facility] Comment on above: Performed By: #### P ILLAR CBC, PILLAR CMP, PILLAR LIPID #### [facility] [address] Serum globulin measurement b y calculation (mass/volume)Ordered By: Kurtis Tyler on 05-27-2025 Globulin (S) [Mass/Vol] 2.6 g/dL [facility] Comment on above: Performed By: #### P ILLAR CBC, PILLAR CMP, PILLAR LIPID #### [facility] [address] [place] [address] Serum or plasma albumin/glob ulin mass ratioOrdered By: Kurtis Tyler on 05-27-2025 Albumin/Globulin [Mass ratio] 1.7 {ratio} [facility] Comment on above: Performed By: #### P ILLAR CBC, PILLAR CMP, PILLAR LIPID #### [facility] [address] [place] [address] Serum or plasma anion gap de terminationOrdered By: Kurtis Tyler on 05-27-2025 Anion gap [Moles/Vol] 11.7 mmol/L 6.0-15.0 [facility] Comment on above: Performed By: #### P ILLAR CBC, PILLAR CMP, PILLAR LIPID #### [facility] [address] [place] [address] Serum or plasma total choles terol/high density lipoprotein (HDL) cholesterol mass ratOrdered By: Kurtis Tyler on 05-27-2025 Cholesterol.total/Cho lesterol in HDL [Mass ratio] 2.2 {ratio} <5.0 [facility] Comment on above: Result Comment: PERF ORMED BY: [place] [address] PATHOLOGIST PROCESS CONTROL OPERATOR BERENICE SLAUGHTER M.D. Performed By: #### P ILLAR CBC, PILLAR CMP, PILLAR LIPID #### [facility] [address] Sodium [Moles/volume] in Ser um or PlasmaOrdered By: Kurtis Tyler on 05-27-2025 Sodium [Moles/Vol] 143 mmol/L 136-145 [facility] Comment on above: Performed By: #### P ILLAR CBC, PILLAR CMP, PILLAR LIPID #### [facility] [address] Triglyceride [Mass/volume] i n Serum or PlasmaOrdered By: Kurtis Tyler on 05-27-2025 Triglyceride [Mass/Vol] 123 mg/dL 0-149 [facility] Comment on above: TRIG ATP III CLASSIF ICATIONTRIG less than 150 mg/dL NormalTRIG 150-199 mg/dL Borderline highTRIG 200-500 mg/dL High TRIG greater than 500 mg/dL Very highStandard traceable to the Center for Disease Conrtrol and Prevention (CDC) test method. Urea nitrogen [Mass/volume] in Serum or PlasmaOrdered By: Kurtis Tyler on 05-27-2025 Urea nitrogen [Mass/Vol] 14 mg/dL 7-25 [facility] Comment on above: Performed By: #### P ILLAR CBC, PILLAR CMP, PILLAR LIPID #### [place] [id number] [facility] 02-22-2025 L ------ Specimen: [id number] Received: 02/22/25 Status: ANJEL Chin Num: [id number] Spec Type: Surgical Subm Dr: Maria Isabel Larry, Tissues: A Small Intestine - Biopsy/Polyp (SMALL BOWEL BX) B Gastric Biopsy (GASTRIC BX) C Gastric Biopsy (GASTRIC POLYP) D Esophagus Biopsy (ESOPHAGUS BX) Procedures: HE/8, Gross/Micro L4/4, PAS-Alcian Blue Age/ Patient Sex Location Account Attending Physician Hanna Harris 59/F [id number] Maria Isabel Larry DO SPEC NUM: [id number] RECD: 02/22/25 STATUS: ANJEL CHIN NUM: [id number] ABEL: 02/22/[address] [facility] [address]: Maria Isabel Larry DO ENTERED: 02/22/25 [facility] DR: APARNA TYPE: Surgical DEPT: S ENTERED BY: [id number] RECV BY: [id number] ORDERED: HE/8, Gross/Micro L4/4, PAS-Alcian Blue ORDERED: HE/8, Gross/Micro L4/4, PAS-Alcian Blue Pathological Diagnosis A. Small bowel biopsy: ? Fragments of small intestinal mucosa, no diagnostic abnormality ? No evidence of celiac disease is identified B. Gastric biopsy: ? Fragments of gastric mucosa, no diagnostic abnormality ? No Helicobacter is identified on H E stained sections C. Gastric polyp biopsy: ? Fundic gland polyp D. Esophagus, biopsy: ? Fragments of gastric mucosa with mild chronic inflammation ? No intestinal metaplasia, dysplasia, or neoplasia are identified ? 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 pylori, Part D history of Swanson's Specimen: [id number] Received: 02/22/25 Status: LINNPippa Chin Num: [id number] Spec Type: Surgical Subm Dr: Maria Isabel Larry, DO Tissues: A Small Intestine - Biopsy/Polyp (SMALL BOWEL BX) B Gastric Biopsy (GASTRIC BX) C Gastric Biopsy (GASTRIC POLYP) D Esophagus Biopsy (ESOPHAGUS BX) Procedures: HE/8, Gross/Micro L4/4, PAS-Alcian Blue Patient: Hanna Harris [id number] (Continued) Specimen: [id number] Received: 02/22/25 (Continued) Signed (signature on file) Sachin Bennett MD 02/24/25 0852 Specimen: [id number] Received: 02/22/25 Status: ANJEL Giuseppe Num: [id number] Spec Type: Surgical Subm Dr: Maria Isabel Larry DO Tissues: A Small Intestine - Biopsy/Polyp (SMALL BOWEL BX) B Gastric Biopsy (GASTRIC BX) C Gastric Biopsy (GASTRIC POLYP) D Esophagus Biopsy (ESOPHAGUS BX) Procedures: HE/Chintan, Gross/Micro L4/4, PAS-Alcian Blue Patient: Hanna Harris [id number] (Continued) Specimen: [id number] Received: 02/22/25 (Continued) Gross Description Part A is received in formalin labeled with the patients name, date of , and small bowel BX are 2 montiel-tyler, focally erythematous, friable, 0.2 and 0.3 cm in greatest dimension tissue bits. The specimen is entirely submitted in a single cassette. (1, ns, A) JG Part B is received in formalin labeled with the patients name, date of , and gastric BX's are 2 montiel-tyler, focally erythematous, friable, 0.3 cm each in greatest dimension tissue bits. The specimen is entirely submitted in a single cassette. (1, ns, B) JG Part C is received in formalin labeled with the patients name, date of , and gastric polyp is a montiel-tyler, focally erythematous, friable, 0.4 cm in greatest dimension polypoid fragment. The specimen is entirely submitted in a single cassette. (1, ns, C) JG Part D is received in formalin labeled with the patients name, date of , and esophagus BX is a pale tyler, focally erythematous, 0.3 cm in greatest dimension tissue bit. The specimen is entirely submitted in a single cassette. (1, ns, D) CPT Codes 88751 x 4, 34625 Specimen: Received: 02/22/25 Status: ANJEL Giuseppe Num: [id number] Spec Type: Surgical Subm Dr: Maria Isabel Larry, Tissues: A Sm (more content not included)... Normal [facility] X-ray reportOrdered By: Eliazar Bay on 10-06-2024 Study report [facility] Main [address] [address] XRay Report Signed Patient: Hanna Harris MR#: [id number] : 1965 Acct:[id number] Age/Sex: 59 / F ADM Date: 4 Loc: XD Room: Type: [facility] CLI Attending Dr: Delroy Hernandez MD Copies to: Delroy Hernandez MD~ Ordering Provider: Delroy Hernandez MD Date of Service: 10/06/24 XR/XR cervical spine 5V*: M54.2 - Cervicalgia 5 views of thecervical spine HISTORY: Left-sided neck pain with radiation to LEFT shoulder COMPARISON: None POSTOPERATIVE CHANGES: None BONY ALIGNMENT: Mild straightening HYPERMOBILITY::No bending imaging. LISTHESIS:Mild degenerative listhesis FRACTURE: None DISC DEGENERATION: Extensive C5-6 and C6-7 spondylosis FACETS: Multilevel facet degeneration FORAMEN: C5-6 and C6-7 bilateral bony neural foraminal narrowing DENS: Intact CRANIOCERVICAL JUNCTION: Unremarkable SOFT TISSUES: Unremarkable XR/XR cervical spine 5V* IMPRESSION: C5-6 and C6-7 degenerative change Impression dictated by: Macario Bay M.D.10/06/2024 8:24 PM Dictation Location: [place] [address] Transcribed By: [facility] 10/06/242023 Dictated By: Macario Bay DO 10/06/242021 Signed By: 10/06/242023 [facility] XR cervical spine 5V*on 09-25 XR cervical spine 5V* [facility] Main [address] [address] XRay Report Signed Patient: Hanna Harris MR#: [id number] : 1965 Acct:[id number] Age/Sex: 59 / F ADM Date: 10/06/24 Loc: XD Room: Type: [facility] CLI Attending Dr: Delroy Hernandez MD Copies to: Delroy Hernandez MD Ordering Provider: Delroy Hernandez MD Date of Service: 10/06/24 XR/XR cervical spine 5V*: M54.2 - Cervicalgia 5 views of thecervical spine HISTORY: Left-sided neck pain with radiation to LEFT shoulder COMPARISON: None POSTOPERATIVE CHANGES: None BONY ALIGNMENT: Mild straightening HYPERMOBILITY::No bending imaging. LISTHESIS:Mild degenerative listhesis FRACTURE: None DISC DEGENERATION: Extensive C5-6 and C6-7 spondylosis FACETS: Multilevel facet degeneration FORAMEN: C5-6 and C6-7 bilateral bony neural foraminal narrowing DENS: Intact CRANIOCERVICAL JUNCTION: Unremarkable SOFT TISSUES: Unremarkable XR/XR cervical spine 5V* IMPRESSION: C5-6 and C6-7 degenerative change Impression dictated by: Macario Bay M.D.10/06/2024 8:24 PM Dictation Location: [place] [address] Transcribed By: [facility] 10/06/242023 Dictated By: Macario Bay DO 10/06/242021 Signed By: 10/06/242023 Normal [facility] MM screening mammo BI w/CADo n 09-29-2024 MM screening mammo BI w/CAD [facility] Main [facility] [address] [place] [address] Mammography Report Signed Patient: Hanna Harris MR#: [id number] : 1965 Acct:[id number] Age/Sex: 59 / F ADM Date: 09/29/24 Loc: ME Room: Type: [facility] Attending Dr: Delmer Saleh DO Copies to: Delmer Hernandez MD Ordering Provider: Delmer Saleh Date of Service: 09/29/24 MM/MM screening mammo BI w/CAD: Z12.31 BILATERAL Screening Full Field digital mammogram with 3-D imaging. Full field digital CC and MLO imaging performed. CAD utilized. COMPARISON: 09/28/2023 HISTORY: Annual screening BREAST COMPOSITION: The breast is almost entirely fatty. BREAST CALCIFICATIONS: Benign calcifications present. VASCULAR CALCIFICATIONS: None ARCHITECTURAL DISTORTION: None BREAST NODULE: None AXILLARY LYMPH NODES: Normal POSTSURGICAL CHANGES: None MM/MM screening mammo BI w/CAD IMPRESSION: No mammographic evidence of malignancy. Routine follow-up recommended in one year. RESULT CODE: 2 Benign Findings(s) DENSITY CODE: 2 (approximately 25-50% glandular) FOLLOW UP: 1YR THE FALSE-NEGATIVE RATE OF MAMMOGRAPHY IS APPROXIMATELY 10%. IMAGING OF A PALPABLE ABNORMALITY MUST BE BASED ON CLINICAL GROUNDS. PATIENT WAS ENTERED INTO A REMINDER SYSTEM WITH A TARGET DUE DATE FOR THE NEXT MAMMOGRAM. Impression dictated by: Macario Bay M.D.09/29/2024 12:52 PM Dictation Location: [facility] Transcribed By: [facility] 09/29/24 1252 Dictated By: Macario Bay DO 09/29/24 1248 Signed By: 09/29/24 1252 Normal [facility] Automated basophil %Ordered By: Kurtis Tyler on 09-18-2024 Basophils/100 WBC (Bld) 0.9 % Normal . [facility] Comment on above: Performed By: #### P ILLAR BMP, PILLAR LIPID, PILLAR TSH, PILLAR CBC #### [facility] [address] [place] [address] Automated basophil countOrde red By: Kurtis Tyler on 09-18-2024 Basophils (Bld) [#/Vol] 0.1 10*3/uL Normal 0.0-0.2 [facility] Comment on above: Result Comment: PERF ORMED BY: [place] [address] PATHOLOGIST PROCESS CONTROL OPERATOR ROGE NORTON M.D. Performed By: #### P ILLAR BMP, PILLAR LIPID, PILLAR TSH, PILLAR CBC #### [facility] [address] [place] [address] Automated blood monocyte cou ntOrdered By: Kurtis Tyler on 09-18-2024 Monocytes (Bld) [#/Vol] 0.5 10*3/uL Normal 0.0-0.8 [facility] Comment on above: Performed By: #### P ILLAR BMP, PILLAR LIPID, PILLAR TSH, PILLAR CBC #### [facility] [address] [place] [address] Automated eosinophil %Ordere d By: Kurtis Tyler on 09-18-2024 Eosinophils/100 WBC (Bld) 4.2 % Normal . [facility] Comment on above: Performed By: #### P ILLAR BMP, PILLAR LIPID, PILLAR TSH, PILLAR CBC #### [facility] [address] Automated eosinophil countOr dered By: Kurtis Tyler on 09-18-2024 Eosinophils (Bld) [#/Vol] 0.4 10*3/uL Normal 0.0-0.45 [facility] Comment on above: Performed By: #### P ILLAR BMP, PILLAR LIPID, PILLAR TSH, PILLAR CBC #### [address] Automated monocyte %Ordered By: Kurtis Tyler on 09-18-2024 Monocytes/100 WBC (Bld) 5.5 % Normal . [facility] Comment on above: Performed By: #### P ILLAR BMP, PILLAR LIPID, PILLAR TSH, PILLAR CBC #### [address] Automated neutrophil %Ordere d By: Kurtis Tyler on 09-18-2024 Neutrophils/100 WBC (Bld) 65.7 % Normal . [facility] Comment on above: Performed By: #### P ILLAR BMP, PILLAR LIPID, PILLAR TSH, PILLAR CBC #### [address] Basophils Auto (Bld) [#/Vol] Ordered By: Kurtis Tyler on 09-18-2024 Basophils (Bld) [#/Vol] Automated basophil count 0.0-0.2 [facility] Basophils/100 WBC Auto (Bld) Ordered By: Kurtis Tyler on 09-18-2024 Basophils/100 WBC (Bld) Automated basophil % . [facility] Calcium [Mass/volume] in Ser um or PlasmaOrdered By: Kurtis Tyler on 09-18-2024 Calcium [Mass/Vol] 9.4 mg/dL Normal 8.6-10.3 [facility] Comment on above: Performed By: #### P ILLAR BMP, PILLAR LIPID, PILLAR TSH, PILLAR CBC #### [facility] [address] [place] [address] [place] Calcium [Mass/Vol] Calcium [Mass/volume ] in Serum or Plasma 8.6-10.3 [facility] Carbon dioxide, total [Moles /volume] in Serum or PlasmaOrdered By: Kurtis Tyler on 09-18-2024 CO2 [Moles/Vol] 29.7 mmol/L Normal 21.0-31.0 [facility] Comment on above: Performed By: #### P ILLAR BMP, PILLAR LIPID, PILLAR TSH, PILLAR CBC #### [facility] [address] [place] [id number] [place] CO2 [Moles/Vol] Carbon dioxide, tota l [Moles/volume] in Serum or Plasma 21.0-31.0 [facility] Chloride [Moles/volume] in S jered or PlasmaOrdered By: Kurtis Tyler on 09-18-2024 Chloride [Moles/Vol] 105 mmol/L Normal 98-107 [facility] Comment on above: Performed By: #### P ILLAR BMP, PILLAR LIPID, PILLAR TSH, PILLAR CBC #### [facility] [address] [place] [id number] [place] Chloride [Moles/Vol] Chloride [Moles/vol ume] in Serum or Plasma 98-107 [facility] Cholesterol [Mass/volume] in Serum or PlasmaOrdered By: Kurtis Tyler on 09-18-2024 Cholesterol [Mass/Vol] 195 mg/dL Normal 140-200 [facility] Comment on above: Chol less than 200 m g/dl low riskChol 201-239 mg/dl borderline riskChol 240 mg/dl and greater high risk Result Comment: Chol less than 200 mg/dl low risk Chol 201-239 mg/dl borderline risk Chol 240 mg/dl and greater high risk Performed By: #### P ILLAR BMP, PILLAR LIPID, PILLAR TSH, PILLAR CBC #### [facility] [address] [place] [id number] [place] Cholesterol [Mass/Vol] Cholesterol [Mass/volume] in Serum or Plasma 140-200 [facility] Comment on above: Chol less than 200 m g/dl low riskChol 201-239 mg/dl borderline riskChol 240 mg/dl and greater high risk Cholesterol in HDL [Mass/vol ume] in Serum or PlasmaOrdered By: Kurtis Tyler on 09-18-2024 Cholesterol in HDL [Mass/Vol] Serum or plasma high density lipoprotein (HDL) cholesterol measurement [facility] Comment on above: HDL CHOL ATP-III CLA SSIFICATION Cardiovascular RiskHDL > or equal to 60 mg/dL LOWHDL < 40 mg/dL HIGH Cholesterol in LDL Calc [Mas s/Vol]Ordered By: Kurtis Tyler on 09-18-2024 Cholesterol in LDL [Mass/Vol] 87 mg/dL 0-100 [facility] Comment on above: LDL ATP III CLASSIFI CATIONLDL less than 100 mg/dL OptimalLDL 100-129 mg/dL Near or above optimalLDL 130-159 mg/dL Borderline highLDL 160-189 mg/dL HighLDL greater than 189 mg/dL Very high Cholesterol in LDL [Mass/Vol] Cholesterol in LDL [Mass/volume] in Serum or Plasma by calculation 0 [facility] Comment on above: LDL ATP III CLASSIFI CATIONLDL less than 100 mg/dL OptimalLDL 100-129 mg/dL Near or above optimalLDL 130-159 mg/dL Borderline highLDL 160-189 mg/dL HighLDL greater than 189 mg/dL Very high Cholesterol in VLDL Calc [Ma ss/Vol]Ordered By: Kurtis Tyler on 09-18-2024 Cholesterol in VLDL [Mass/Vol] 32 mg/dL [facility] Cholesterol in VLDL [Mass/Vol] Cholesterol in VLDL [Mass/volume] in Serum or Plasma by calculation [facility] Creatinine [Mass/volume] in Serum or PlasmaOrdered By: Kurtis Tyler on 09-18-2024 Creatinine [Mass/Vol] 0.68 mg/dL Normal 0.60-1.20 [facility] Comment on above: Performed By: #### P ILLAR BMP, PILLAR LIPID, PILLAR TSH, PILLAR CBC #### [address] Creatinine [Mass/Vol] Creatinine [Mass/v olume] in Serum or Plasma 0.60-1.20 [facility] Employee Basic Metabolic Hall flori 09-18-2024 GFR/1.73 sq M.predicted MDRD (S/P/Bld) [Vol rate/Area] mL/min/{1.73_m2} Normal [facility] Comment on above: Performed By: #### P ILLAR BMP, PILLAR LIPID, PILLAR TSH, PILLAR CBC #### [address] Employee Complete Blood Coun ton 09-18-2024 Mean Corpuscular HGB Conc 33.9 g/dL Normal 32.0-35.0 [facility] Comment on above: Performed By: #### P ILLAR BMP, PILLAR LIPID, PILLAR TSH, PILLAR CBC #### [address] NRBC% 0.4 /100{WBC} Normal 0-0.5 [facility] Comment on above: Performed By: #### P ILLAR BMP, PILLAR LIPID, PILLAR TSH, PILLAR CBC #### [address] Employee Lipid Profileon LDL Cholesterol,Calculate d 87 mg/dL Normal 0-100 [facility] Comment on above: Result Comment: LDL ATP III CLASSIFICATION LDL less than 100 mg/dL Optimal LDL 100-129 mg/dL Near or above optimal LDL 130-159 mg/dL Borderline high LDL 160-189 mg/dL High LDL greater than 189 mg/dL Very high Performed By: #### P ILLAR BMP, PILLAR LIPID, PILLAR TSH, PILLAR CBC #### [address] Triglyceride w/Reflex 161 mg/dL High 0-149 [facility] Comment on above: Result Comment: TRIG ATP III CLASSIFICATION TRIG less than 150 mg/dL Normal TRIG 150-199 mg/dL Borderline high TRIG 200-500 mg/dL High TRIG greater than 500 mg/dL Very high Standard traceable to the Center for Disease Conrtrol and Prevention (CDC) test method. Performed By: #### P ILLAR BMP, PILLAR LIPID, PILLAR TSH, PILLAR CBC #### [address] VLDL CHOLESTEROL 32 mg/dL Normal [facility] Comment on above: Performed By: #### P ILLAR BMP, PILLAR LIPID, PILLAR TSH, PILLAR CBC #### [facility] [address] Employee Thyroid Stim Hormon tash 09-18-2024 Employee Thyroid Stim Hormone 1.17 u[iU]/mL Normal 0.45-5.33 [facility] Comment on above: Result Comment: PERF ORMED BY: [place] [address] PATHOLOGIST PROCESS CONTROL OPERATOR ROGE NORTON M.D. Performed By: #### P ILLAR BMP, PILLAR LIPID, PILLAR TSH, PILLAR CBC #### [facility] [address] [place] [address] Eosinophils Auto (Bld) [#/Vo l]Ordered By: Kurtis Tyler on 09-18-2024 Eosinophils (Bld) [#/Vol] Automated eosinophil count 0.0-0.45 [facility] Eosinophils/100 WBC Auto (Bl d)Ordered By: Kurtis Tyler on 09-18-2024 Eosinophils/100 WBC (Bld) Automated eosinophil % . [facility] Erythrocyte distribution wid th Auto (RBC) [Ratio]Ordered By: Kurtis Tyler on 09-18-2024 Erythrocyte distribution width (RBC) [Ratio] Erythrocyte distribution width [Ratio] by Automated count 11.9-15.3 [facility] Erythrocyte distribution wid th [Ratio] by Automated countOrdered By: Kurtis Tyler on 09-18-2024 Erythrocyte distribution width (RBC) [Ratio] 14.2 % Normal 11.9-15.3 [facility] Comment on above: Performed By: #### P ILLAR BMP, PILLAR LIPID, PILLAR TSH, PILLAR CBC #### [facility] [address] [place] [address] Erythrocytes [#/volume] in B lood by Automated countOrdered By: Kurtis Tyler on 09-18-2024 RBC (Bld) [#/Vol] 4.17 10*6/uL Normal 3.60-5.00 [facility] Comment on above: Performed By: #### P ILLAR BMP, PILLAR LIPID, PILLAR TSH, PILLAR CBC #### [facility] [address] [place] [address] [place] Glucose [Mass/volume] in Ser um or PlasmaOrdered By: Kurtis Tyler on 09-18-2024 Glucose [Mass/Vol] 91 mg/dL Normal 70-100 [facility] Comment on above: Performed By: #### P ILLAR BMP, PILLAR LIPID, PILLAR TSH, PILLAR CBC #### [facility] [address] [place] [address] [place] Glucose [Mass/Vol] Glucose [Mass/volume ] in Serum or Plasma 70-100 [facility] Hematocrit Auto (Bld) [Volum e fraction]Ordered By: Kurtis Tyler on 09-18-2024 Hematocrit (Bld) [Volume fraction] Hematocrit [Volume Fraction] of Blood by Automated count 34.0-46.4 [facility] Hematocrit [Volume Fraction] of Blood by Automated countOrdered By: Kurtis Tyler on 09-18-2024 Hematocrit (Bld) [Volume fraction] 39.1 % Normal 34.0-46.4 [facility] Comment on above: Performed By: #### P ILLAR BMP, PILLAR LIPID, PILLAR TSH, PILLAR CBC #### [facility] [address] [place] [address] [place] Hemoglobin [Mass/volume] in BloodOrdered By: Kurtis Tyler on 09-18-2024 Hemoglobin (Bld) [Mass/Vol] 13.3 g/dL Normal 11.8-15.4 [facility] Comment on above: Performed By: #### P ILLAR BMP, PILLAR LIPID, PILLAR TSH, PILLAR CBC #### [facility] [address] [place] [address] [place] Hemoglobin (Bld) [Mass/Vol] Hemoglobin [Mass/volume] in Blood 11.8-15.4 [facility] Leukocytes [#/volume] correc magaly for nucleated erythrocytes in Blood by Automated counOrdered By: Kurtis Tyler on 09-18-2024 WBC corrected for nucl RBC Auto (Bld) [#/Vol] 9.3 10*3/uL 3.8-11.6 [facility] WBC corrected for nucl RBC Auto (Bld) [#/Vol] Leukocytes [#/volume] corrected for nucleated erythrocytes in Blood by Automated coun 3.8-11.6 [facility] Leukocytes [#/volume] in Blo od by Automated countOrdered By: Kurtis Tyler on 09-18-2024 WBC (Bld) [#/Vol] 9.3 10*3/uL Normal 3.8-11.6 [facility] Comment on above: Performed By: #### P ILLAR BMP, PILLAR LIPID, PILLAR TSH, PILLAR CBC #### [facility] [address] Lymphocytes Auto (Bld) [#/Vo l]Ordered By: Kurtis Tyler on 09-18-2024 Lymphocytes (Bld) [#/Vol] Lymphocytes [#/volume] in Blood by Automated count 1.00-4.8 [facility] Lymphocytes [#/volume] in Bl ood by Automated countOrdered By: Kurtis Tyler on 09-18-2024 Lymphocytes (Bld) [#/Vol] 2.2 10*3/uL Normal 1.00-4.8 [facility] Comment on above: Performed By: #### P ILLAR BMP, PILLAR LIPID, PILLAR TSH, PILLAR CBC #### [facility] [address] [place] [address] Lymphocytes/100 WBC Auto (Bl d)Ordered By: Kurtis Tyler on 09-18-2024 Lymphocytes/100 WBC (Bld) Lymphocytes/100 leukocytes in Blood by Automated count . [facility] Lymphocytes/100 leukocytes i n Blood by Automated countOrdered By: Kurtis Tyler on 09-18-2024 Lymphocytes/100 WBC (Bld) 23.7 % Normal . [facility] Comment on above: Performed By: #### P ILLAR BMP, PILLAR LIPID, PILLAR TSH, PILLAR CBC #### [facility] [address] [place] [address] MCH Auto (RBC) [Entitic mass ]Ordered By: Kurtis Tyler on 09-18-2024 MCH (RBC) [Entitic mass] MCH [Entitic mass] by Automated count 24.7-34.3 [facility] MCH [Entitic mass] by Automa magaly countOrdered By: Kurtis Tyler on 09-18-2024 MCH (RBC) [Entitic mass] 31.9 pg Normal 24.7-34.3 [facility] Comment on above: Performed By: #### P ILLAR BMP, PILLAR LIPID, PILLAR TSH, PILLAR CBC #### [facility] [address] MCHC Auto (RBC) [Mass/Vol]Or dered By: Kurtis Tyler on 09-18-2024 MCHC (RBC) [Mass/Vol] 33.9 g/dL 32.0-35.0 [facility] MCHC (RBC) [Mass/Vol] MCHC [Mass/volume] by Automated count 32.0-35.0 [facility] MCV Auto (RBC) [Entitic vol] Ordered By: Kurtis Tyler on 09-18-2024 MCV (RBC) [Entitic vol] MCV [Entitic volume] by Automated count 80-100 [facility] MCV [Entitic volume] by Auto mated countOrdered By: Kurtis Tyler on 09-18-2024 MCV (RBC) [Entitic vol] 93.9 fL Normal 80-100 [facility] Comment on above: Performed By: #### P ILLAR BMP, PILLAR LIPID, PILLAR TSH, PILLAR CBC #### [facility] [address] [place] [address] Monocytes Auto (Bld) [#/Vol] Ordered By: Kurtis Tyler on 09-18-2024 Monocytes (Bld) [#/Vol] Automated blood monocyte count 0.0-0.8 [facility] Monocytes/100 WBC Auto (Bld) Ordered By: Kurtis Tyler on 09-18-2024 Monocytes/100 WBC (Bld) Automated monocyte % . [facility] Neutrophils Auto (Bld) [#/Vo l]Ordered By: Kurtis Tyler on 09-18-2024 Neutrophils (Bld) [#/Vol] Neutrophils [#/volume] in Blood by Automated count 1.8-7.7 [facility] Neutrophils [#/volume] in Bl ood by Automated countOrdered By: Kurtis Tyler on 09-18-2024 Neutrophils (Bld) [#/Vol] 6.1 10*3/uL Normal 1.8-7.7 [facility] Comment on above: Performed By: #### P ILLAR BMP, PILLAR LIPID, PILLAR TSH, PILLAR CBC #### [facility] [address] [place] [address] [place] Neutrophils/100 WBC Auto (Bl d)Ordered By: Kurtis Tyler on 09-18-2024 Neutrophils/100 WBC (Bld) Automated neutrophil % . [facility] No Panel InformationOrdered By: Kurtis Tyler on 09-18-2024 Estimated GFR (CKD-EPI) > 60.0 mL/Min [facility] Creatinine Clearance (Chem N/A [facility] Nucleated erythrocytes [Pres ence] in Blood by Automated countOrdered By: Kurtis Tyler on 09-18-2024 Nucleated RBC Auto Ql (Bld) 0.4 /100{WBC} 0-0.5 [facility] Nucleated RBC Auto Ql (Bld) Nucleated erythrocytes [Presence] in Blood by Automated count 0-0.5 [facility] Platelet mean volume Auto (B ld) [Entitic vol]Ordered By: Kurtis Tyler on 09-18-2024 Platelet mean volume (Bld) [Entitic vol] Platelet mean volume [Entitic volume] in Blood by Automated count 6.3-10.7 [facility] Platelet mean volume [Entiti c volume] in Blood by Automated countOrdered By: Kurtis Tyler on 09-18-2024 Platelet mean volume (Bld) [Entitic vol] 8.8 fL Normal 6.3-10.7 [facility] Comment on above: Performed By: #### P ILLAR BMP, PILLAR LIPID, PILLAR TSH, PILLAR CBC #### [facility] [address] [place] [address] [place] Platelets Auto (Bld) [#/Vol] Ordered By: Kurtis Tyler on 09-18-2024 Platelets (Bld) [#/Vol] Platelets [#/volume] in Blood by Automated count 150-450 [facility] Platelets [#/volume] in Bloo d by Automated countOrdered By: Kurtis Tyler on 09-18-2024 Platelets (Bld) [#/Vol] 303 10*3/uL Normal 150-450 [facility] Comment on above: Performed By: #### P ILLAR BMP, PILLAR LIPID, PILLAR TSH, PILLAR CBC #### [facility] [address] [place] [address] [place] Potassium [Moles/volume] in Serum or PlasmaOrdered By: Kurtis Tyler on 09-18-2024 Potassium [Moles/Vol] 4.2 mmol/L Normal 3.5-5.1 [facility] Comment on above: Performed By: #### P ILLAR BMP, PILLAR LIPID, PILLAR TSH, PILLAR CBC #### [facility] [address] [place] [address] [place] Potassium [Moles/Vol] Potassium [Moles/v olume] in Serum or Plasma 3.5-5.1 [facility] RBC Auto (Bld) [#/Vol]Ordere d By: Kurtis Tyler on 09-18-2024 RBC (Bld) [#/Vol] Erythrocytes [#/volu me] in Blood by Automated count 3.60-5.00 [facility] Serum or plasma anion gap de terminationOrdered By: Kurtis Tyler on 09-18-2024 Anion gap [Moles/Vol] 10.5 mmol/L Normal 6.0-15.0 [facility] Comment on above: Performed By: #### P ILLAR BMP, PILLAR LIPID, PILLAR TSH, PILLAR CBC #### [facility] [address] [place] [address] [place] Anion gap [Moles/Vol] Serum or plasma an ion gap determination 6.0-15.0 [facility] Serum or plasma high density lipoprotein (HDL) cholesterol measurementOrdered By: Kurtis Tyler on 09-18-2024 Cholesterol in HDL [Mass/Vol] 76 mg/dL Normal 23-92 [facility] Comment on above: HDL CHOL ATP-III CLA SSIFICATION Cardiovascular RiskHDL > or equal to 60 mg/dL LOWHDL < 40 mg/dL HIGH Result Comment: HDL CHOL ATP-III CLASSIFICATION Cardiovascular Risk HDL > or equal to 60 mg/dL LOW HDL < 40 mg/dL HIGH Performed By: #### P ILLAR BMP, PILLAR LIPID, PILLAR TSH, PILLAR CBC #### [facility] [address] Serum or plasma total choles terol/high density lipoprotein (HDL) cholesterol mass ratOrdered By: Kurtis Tyler on 09-18-2024 Cholesterol.total/Cho lesterol in HDL [Mass ratio] 2.6 {ratio} Normal <5.0 [facility] Comment on above: Performed By: #### P ILLAR BMP, PILLAR LIPID, PILLAR TSH, PILLAR CBC #### [facility] [address] Cholesterol.total/Cho lesterol in HDL [Mass ratio] Serum or plasma total cholesterol/high density lipoprotein (HDL) cholesterol mass rat <5.0 [facility] Sodium [Moles/volume] in Ser um or PlasmaOrdered By: Kurtis Tyler on 09-18-2024 Sodium [Moles/Vol] 141 mmol/L Normal 136-145 [facility] Comment on above: Performed By: #### P ILLAR BMP, PILLAR LIPID, PILLAR TSH, PILLAR CBC #### [facility] [address] Sodium [Moles/Vol] Sodium [Moles/volume ] in Serum or Plasma 136-145 [facility] Thyrotropin [Units/volume] i n Serum or PlasmaOrdered By: Kurtis Tyler on 09-18-2024 TSH Qn 1.17 m[IU]/L 0.45-5.33 [facility] TSH Qn Thyrotropin [Units/v olume] in Serum or Plasma 0.45-5.33 [facility] Triglyceride [Mass/volume] i n Serum or PlasmaOrdered By: Kurtis Tyler on 09-18-2024 Triglyceride [Mass/Vol] 161 mg/dL High 0-149 [facility] Comment on above: TRIG ATP III CLASSIF ICATIONTRIG less than 150 mg/dL NormalTRIG 150-199 mg/dL Borderline highTRIG 200-500 mg/dL High TRIG greater than 500 mg/dL Very highStandard traceable to the Center for Disease Conrtrol and Prevention (CDC) test method. Triglyceride [Mass/Vol] Triglyceride [Mass/volume] in Serum or Plasma High 0-149 [facility] Comment on above: TRIG ATP III CLASSIF ICATIONTRIG less than 150 mg/dL NormalTRIG 150-199 mg/dL Borderline highTRIG 200-500 mg/dL High TRIG greater than 500 mg/dL Very highStandard traceable to the Center for Disease Conrtrol and Prevention (CDC) test method. Urea nitrogen [Mass/volume] in Serum or PlasmaOrdered By: Kurtis Tyler on 09-18-2024 Urea nitrogen [Mass/Vol] 14 mg/dL Normal 06-18 [facility] Comment on above: Performed By: #### P ILLAR BMP, PILLAR LIPID, PILLAR TSH, PILLAR CBC #### [facility] [address] Urea nitrogen [Mass/Vol] Urea nitrogen [Mass/volume] in Serum or Plasma 06-18 [facility] WBC Auto (Bld) [#/Vol]Ordere d By: Kurtis Tyler on 09-18-2024 WBC (Bld) [#/Vol] Leukocytes [#/volume ] in Blood by Automated count 3.8-11.6 [facility] XR knee LT 4V*on 06-12-2024 XR knee LT 4V* [facility] [address] [place] [address] XRay Report Signed Patient: Hanna Harris MR#: [id number] : 1965 Acct:[id number] Age/Sex: 59 / F ADM Date: 06/12/24 [place] [facility] [place]: Type[place] [facility] Attending Dr: Jose Alfredo Sheffield II, MD Copies to: Jose Alfredo Sheffield MD Ordering Provider: Jose Alfredo Sheffield MD Date of Service: 06/12/24 XR/XR knee LT 4V*: M25.562 - Pain in left knee 4 views left knee plain film COMPARISON: None HISTORY: Anterior left knee pain. Injury. ACUTE FINDINGS: No acute findings DEGENERATIVE CHANGE: Similar moderate SOFT TISSUE FINDINGS: Unremarkable JOINT EFFUSION: None POSTOP CHANGES: None BONE MINERALIZATION: Adequate XR/XR knee LT 4V* IMPRESSION: No acute findings Impression dictated by: Macario Bay M.D.06/12/2024 10:52 AM Dictation Location: RADIO-PC-08 Transcribed By: ANGELA 06/12/24 1052 Dictated By: Macario Bay DO 06/12/24 1051 Signed By: 06/12/24 1052 Normal [facility] XR pelvis 1-2Von 06-12-2024 XR pelvis 1-2V [facility] [address] [place] [address] XRay Report Signed Patient: Hanna Harris MR#: [id number] : 1965 Acct:[id number] Age/Sex: 59 / F ADM Date: 06/12/24 [place] [facility] [place]: Type: [facility] Attending Dr: Jose Alfredo Sheffield II, MD Copies to: Jose Alfredo Sheffield MD Ordering Provider: Jose Alfredo Sheffield MD Date of Service: 06/12/24 XR/XR pelvis 1-2V: PAIN Single view of the pelvis plain film HISTORY: Left knee pain anteriorly. Twisting injury COMPARISON: None ACUTE FINDINGS: None BONY ALIGNMENT: Adequate SOFT TISSUES: Unremarkable DEGENERATIVE CHANGE:Mild left hip and SI joint degeneration. INTRAPELVIC STRUCTURES: Unremarkable POSTSURGICAL CHANGES:Uncomplicated right hip arthroplasty. Mild adjacent heterotopic bone. XR/XR pelvis 1-2V IMPRESSION:No acute bony findings. Mild degeneration. Unremarkable right hip arthroplasty. Impression dictated by: Macario Bay M.D.06/12/2024 11:27 AM Dictation Location: RADIO-PC-08 Transcribed By: ANGELA 06/12/24 1127 Dictated By: Macario Bay DO 06/12/24 1117 Signed By: 06/12/24 1127 Normal [facility] Patient Letter FTon 2023 Patient Letter [facility] (Inserted Image. Alfreda ble to display) March 30, 2024 HANNA HARRIS [address] [place] [address] : 1965 Dear Hanna, This is a reminder that you are due for an appointment with [facility]. Please contact our office at [phone] to schedule an appointment at your earliest convenience. Thank you, [facility] Normal [facility] Physician Orderon 10-30-2023 Physician Order [id number]#1.00TIFF Normal [facility] Consent for Treatmenton 0 Consent for Treatment [id number]#1.00TIFF Normal [facility] Heart and Vascular Office/Cl inic Noteon 10-29-2023 Heart and Vascular Office/Clinic Note History of Present Illness Hanna Harris is a 58 year old female previously seen by me in the hospital about a year ago, with past medical history positive for paroxysmal atrial fibrillation on Xarelto- first diagnosed at [facility] January 2020-with associated hypertension, hypothyroid, and morbid obesity. She is not diabetic, non-smoker, and no known CAD. She had normal exercise stress with nuclear imaging, normal echo January 2020. Patient return to the emergency room on 04/27/2022 with new onset rapid atrial fibrillation in the 140s to 150s, then spontaneously cardioverted back to normal sinus rhythm. Her troponins were negative and she was subsequently discharged home for follow-up in our office. Her Xarelto was discontinued recently due to knee pain. This was recently restarted after hip injection. Patient converted spontaneously back to normal sinus rhythm. She is now here in follow-up. Patient is very much aware when she goes in and out of atrial fibrillation has had no further atrial fibrillation. Patient's had 3 episodes mostly at night while she is sleeping of paroxysmal atrial fibrillation. As part of her cardiac work-up she underwent a 2D echo with Doppler on 06/01/2022 with the following results: (06/01/2022 11:09 EDT Echo Transthoracic Complete) SUMMARY/CONCLUSION: 1. Normal left ventricular size and function with a left ventricular ejection fraction of 65%. 2. Normal diastolic function for age. 3. Trivial tricuspid regurgitation with normal right ventricular systolic pressure of 35 mmHg. 4. No old echocardiogram for comparison. [1] In addition she underwent a treadmill/MPI on 06/01/2022 with the following results: (06/01/2022 10:16 EDT NM Myocardial Spect Multi Rest) IMPRESSION: 1. Normal, adequate, treadmill/myocardial perfusion imaging. Negative for ischemia by electrocardiographic and myocardial perfusion imaging. No anginal symptoms noted. No arrhythmias noted. 2. Appropriate blood pressure response to exercise. 3. Average exercise capacity for age. 4. Normal TID of 0.74. 5. Normal left ventricular size and function with an ejection fraction of 65%. 6. This is a low risk study. [2] Patient was recently admitted in mid February 2023 after she fell down in her bathroom, and was found to be in atrial fibrillation. She was admitted to the hospital and underwent successful elective DC cardioversion by Dr. Wylie on 03/13/2023 and subsequently discharged. She is now here in follow-up. Patient recently complained of worsening dyspnea on exertion despite negative stress testing, and recommended to undergo a left heart catheterization which took place on 09/23/2023 with the following results: CONCLUSIONS: 1. Angiographically normal coronary arteries. 2. Hyperdynamic left ventricular function with a left ventricular ejection fraction of 75%. 3. Normal left ventricular end diastolic pressure. 4. Normal right-sided pulmonary pressures. 5. Normal cardiac output. [1] In addition she underwent pulmonary function test on 10/01/2023 with the following results: IMPRESSION: Spirometry, lung volume testing and lung diffusion capacity are normal. [2] Patient now returns for follow-up. She had a sleep study done which showed marginal obstructive sleep apnea. The patient chose to do exercise and weight loss to facilitate optimal pulmonary parameters. She is not on CPAP. She is doing quite well and denies any chest pain, angina, shortness of breath or dyspnea on exertion. She is slowly losing weight and feels great. In our office today her blood pressure is 125/80 and pulse is 65 and regular. Physical exam demonstrates 2+ carotid upstroke bilaterally, no carotid bruits, clear lungs bilaterally, regular rate and rhythm, normal S1/S2, no S3 or S4. No murmurs are detected.. EKG dated 05/02/2022 shows sinus bradycardia at a rate of 56, normal axis, normal intervals, no evidence of previous myocardial infarction and low voltage in the precordial leads.. EKG dated 01/11/2023 shows sinus bradycardia at a rate of 59 beats a minute, poor R wave progression across the precordium possibly secondary to lead misplacement. Lipids dated 03/23/2021 show an HDL of 76 and an LDL of 97. EKG dated 03/25/2023 shows normal sinus rhythm, low voltage in the precordial leads, possible old anterior wall myocardial infarction versus lead misplacement. EKG dated 09/06/2023 shows normal sinus rhythm, normal axis, low voltage in the precordial leads. EKG dated 10/29/2023 shows sinus bradycardia at a rate of 59 beats a minute, low voltage in the precordial and limb leads, no previous myocardial infarction. Review of Systems Constitutional: no fever, no chills, no weakness, no fatigue Respiratory: no shortness of breath, no cough, no orthopnea, no wheezing Cardiovascular: no chest pain, no palpitations, no edema Neuro: no dizziness no light headed no syncope Additional ROS info: Except as noted in the above Review of Systems and in the History of Present Illness all other systems h (more content not included)... Normal [facility] Comment on above: Result Comment: Elec tronically Signed By: EDD BERRY, Micheal Gifford\.br\Date and Time Signed: 10/29/23 16:01 EST Consent for Treatmenton Consent for Treatment [id number]#1.00TIFF [facility] Heart and Vascular Office/Cl inic Noteon 10-02-2023 Heart and Vascular Office/Clinic Note Chief Complaint Dyspnea on exertion History of Present Illness This is a 58-year-old female with a past medical history significant for GERD, hypertension, hypothyroidism, paroxysmal atrial fibrillation on anticoagulation status post cardioversion. She has been complaining of dyspnea for few months her shortness of breath is mostly with activities she denies cough no wheezing. She underwent cardiac work-up including right and left heart catheterization which was normal. 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 She had pulmonary function test which is normal. Her chest x-ray is normal She was evaluated for sleep apnea in [facility] and diagnosed with mild obstructive sleep apnea on sleep study but after discussion with her sleep doctor decision was made to hold off CPAP treatment because of lack of symptoms Review of Systems 12 point system review was done and negative except what mentioned in HPI Physical Exam Vitals & Measurements HR: 66(Peripheral) BP: 127/81 SpO2: 99% HT: 66 in HT: 167 cm WT: 117 kg WT: 257.4 lb BMI: 41.95 General: no distress Skin: warm? , dry? Head: no? trauma, normocephalic? Neck: Trachea midline? , no? adenopathy, no? tenderness Eye: normal? conjunctiva, sclera clear? ENMT: oral mucosa moist? Cardiovascular: regular? rate and rhythm, normal? Respiratory: Lungs CTA? ,respirations non labored? Chest wall: no? deformity. Gastrointestinal: soft? , non distended? , no? tenderness, no? guarding. Extremities: no? deformity, no? trauma Neurological: nonfocal Assessment/Plan 1. Dyspnea (R06.00: Dyspnea, unspecified) Her pulmonary function test is normal and chest x-ray with no lung infiltrates. Due to her history of exercise-induced asthma I would proceed with a methacholine challenge test although her current symptoms are not typical for asthma. Will reevaluate after testing Ordered: Pulmonary Function Testing Follow-up No qualifying data available After testing Problem List/Past Medical History Ongoing Swanson's esophagus without dysplasia Change in bowel habits Clostridium difficile diarrhea Colon polyps Fundic gland polyps of stomach, benign GERD without esophagitis HTN (hypertension) Hypothyroidism PAF (paroxysmal atrial fibrillation) Palpitations Historical No qualifying data Procedure/Surgical History Catheterization of left heart (09/23/2023), Catheterization of right heart (09/23/2023), Cardioversion (03/13/2023), Colonoscopy (04/28/2021), EGD (esophagogastroduodenoscop y) gastric outlet reduction (04/28/2021), Esophagogastroduodenoscopy (03/29/2021), Hip arthroplasty (11/25/2012), Appendectomy (11/25/2005), Bilateral coblation tonsillectomy (11/25/1969), Cholecystectomy, Hysterectomy. Medications Cardizem CD 240 mg/24 hours Cap-ER, 240 mg= 1 cap(s), Oral, Daily, 1 refills hydrochlorothiazide 12.5 mg Tab, 12.5 mg= 1 tab(s), Oral, Daily Imitrex 25 mg Tab, 25 mg= 1 tab(s), Oral, As Directed, PRN levothyroxine 75 mcg (0.075 mg) Tab, 75 mcg= 1 tab(s), Oral, Daily multivitamin, 1 tab, Oral, Daily pantoprazole 40 mg Oral EC Tab, 40 mg= 1 tab(s), Oral, Daily potassium chloride 10 mEq Cap-ER potassium chloride 10 mEq Cap-ER, 10 mEq= 1 cap(s), Oral, Daily, 5 refills Tylenol 8 HR Arthritis Pain, 2 tab(s), Oral, q12hr Xarelto 20 mg oral tablet, 20 mg= 1 tab(s), Oral, Daily, 3 refills Allergies CeleBREX (Unknown) oxyCODONE (Unknown) sulfa drugs (Unknown) Social History Alcohol - Denies Alcohol Use, 09/23/2023 Wine, 03/12/2023 1-2 times per year, 03/28/2021 Current, 03/17/2021 Substance Abuse - Denies Substance Abuse, 09/23/2023 Tobacco - Denies Tobacco Use, 03/17/2021 Never (less than 100 in lifetime) Tobacco Use:. Never Smokeless Tobacco Use:. Household tobacco concerns: No., 10/02/2023 Family History Acute myocardial infarction: Father. Cardiac arrest: Father. Primary malignant neoplasm of female breast: Mother. Primary malignant neoplasm of skin: Mother. [facility] Comment on above: Result Comment: Elec tronically Signed By: Anna BERRY, Darrick Pichardo\.br\Date and Time Signed: 10/02/23 15:58 EST Physician Orderon 10-02-2023 Physician Order [id number]#1.00TIFF [facility] Pulmonary Function Studieson 10-02-2023 Pulmonary Function Studies PULMONARY FUNCTION TEST: 09/25/2023 REFERRING PHYSICIAN: Delroy Hernandez M.D.; Micheal Puga M.D. REASON FOR TESTING: This is a 58-year-old female, never smoked. Pulmonary function test is performed to evaluate for dyspnea. Spirometry shows normal FEV1 at 94% predicted, forced vital capacity is normal at 92% predicted, FEV1/forced vital capacity ratio is normal at 80%. Lung volume testing shows normal total lung capacity at 97% predicted, residual volume is normal at 103% predicted. RV/total lung capacity ratio is normal at 40%. The lung diffusion capacity is normal at 101% predicted. IMPRESSION: Spirometry, lung volume testing and lung diffusion capacity are normal. READ BY: Darrick Castillo M.D. Dictated: 10/01/2023 [id number] Transcribed: 10/02/2023 cc:Delroy Hernandez M.D. cc:Micheal Puga M.D. [facility] Comment on above: Result Comment: Elec tronically Signed By: Anna BERRY, Darrick X\.br\Date and Time Signed: 10/02/23 16:01 EST Consent for Treatmenton Consent for Treatment [id number]#1.00TIFF [facility] Pulmonary Function Testson 11-25-2022 Pulmonary Function Tests [id number]#1.00TIFF [facility] Consent for Procedure/Surger yon 09-24-2023 Consent for Procedure/Surgery [id number]#1.00TIFF [facility] Discharge Instructionson Discharge Instructions [id number]#1.00TIFF [facility] Cardiovascular Reporton 08-27 Cardiovascular Report [id number]#1.00TIFF [facility] Clipboard Summaryon 09-23-20 Clipboard Summary {[id number]}XML [facility] Consent for Treatmenton 08-27 Consent for Treatment [id number] Normal [facility] Inpatient Clinical Summaryon 09-23-2023 Inpatient Clinical Summary [address] [address] Clinical Summary Person Information: Name: HANNA HARRIS Age: 58 Years : 1965 Sex: Female PCP: DELROY HERNANDEZ MD Marital Status: Phone: [phone] Race: White Ethnicity: Non- or Language: Sinhala Visit Id: Visit Reason: R07.9, R06.09, R06.02, I48.91 Speciality: Acuity: Enc Type: Ambulatory/Same Day Surgery Med Service: Surgery Arrival: 09/23/2023 06:36:54 Discharge: Dispo Type: Address: [address] [place] [address] [phone] Provider Notes: Diagnosis: Problems Active Colon polyps Change in bowel habits GERD without esophagitis Fundic gland polyps of stomach, benign Swanson's esophagus without dysplasia Clostridium difficile diarrhea Palpitations HTN (hypertension) Hypothyroidism PAF (paroxysmal atrial fibrillation) Smoking Status: Never Smoker Functional Status: Sensory Deficits: Uncorrected visual impairment History of Falls: Mobility Assistance Prior to Admission: Independent ADLs: Independent Current Level of Assistance for Self-Care/Mobility: Cognitive Status: Allergies CeleBREX (Unknown) oxyCODONE (Unknown) sulfa drugs (Unknown) Measurements: Height: 167 cm Weight: 117 kg Blood Pressure: 155 mmHg / 93 mmHg BMI: 41.95 kg/m2 Procedures Catheterization of right heart (09/23/2023) Catheterization of left heart (09/23/2023) Immunizations No Immunizations Documented This Visit Final Med List: acetaminophen (Tylenol 8 HR Arthritis Pain) 2 Tablets By Mouth every 12 hours. diltiazem (Cardizem CD 240 mg/24 hours Cap-ER) 1 Capsules By Mouth every day. Refills: 1. hydrochlorothiazide (hydrochlorothiazide 12.5 mg Tab) 1 Tablets By Mouth every day. levothyroxine (levothyroxine 75 mcg (0.075 mg) Tab) 1 Tablets By Mouth every day. multivitamin 1 tab By Mouth every day. pantoprazole (pantoprazole 40 mg Oral EC Tab) 1 Tablets By Mouth every day. potassium chloride (potassium chloride 10 mEq Cap-ER) 1 Capsules By Mouth every day for 30 Days. Refills: 5. potassium chloride (potassium chloride 10 mEq Cap-ER) rivaroxaban (Xarelto 20 mg oral tablet) 1 Tablets By Mouth every day for 90 Days. Refills: 3. sumatriptan (Imitrex 25 mg Tab) 1 Tablets By Mouth As Directed as needed Migraine headache. Care Team Members: Attending Physician: Micheal PUGA MD Consulting Physician: Referring Physician: Micheal PUGA MD Follow up: With: Address: When: Micheal PUGA [address] [place], [place] [id number] [phone] Business (1) Comments: Keep scheduled appointment With: Address: When: DELROY HERNANDEZ [address] [place] [phone] Business (1) Type Location Start [facility] Cardiology Follow Up (FT) FT.Cardiology Clinic 10/29/2023 3:45 PM 10/29/2023 4:00 PM Confirmed Patient Education Information: CV - Cardiovascular Discharge Instructions (CUSTOM) [facility] Inpatient Patient Summaryon 09-23-2023 Inpatient Patient Summary [address] [address] Patient Discharge Instructions PERSON INFORMATION Name: HANNA HARRIS Date of : 1965 Current Date: 09/23/2023 10:36:54 PHYSICIANS Admitting Physician: Micheal PUGA MD Primary Care Physician: DELROY HERNANDEZ MD PCP Comment: Discharge Diagnosis: Condition at Discharge: Stable HANNA HARRIS has been given the following list of follow-up instructions, prescriptions, and patient education materials: PATIENT FOLLOW-UP INFORMATION Diet: Discharge Activity: Discharge Restrictions: No driving for 24 hrs, Do not operate machinery or tools, Do not make important decisions for 24 hours, Do not drink alcoholic beverages for 24 hours Wound Care Instructions: Remove Your Dressing In Days Call Your Doctor For: Temperature above 100 degrees, Redness, swelling, or pus at operative site, Severe pain at the operative site, Persistent vomiting IF UNABLE TO CONTACT YOUR PHYSICIAN AND YOU FEEL IT IS AN EMERGENCY, GO TO THE NEAREST EMERGENCY ROOM OR CALL 911 Home Treatment: Devices/Equipment: Special Services: Additional Instructions: Restart xarelto on 09/29/2023 Stop taking Aspirin and plavix Primary Care Physician to provide the following pending test results: None Follow up: With: Address: When: [place] [address] [phone] Business (1) Comments: Keep scheduled appointment With: Address: When: DELROY HERNANDEZ [address] [place], [place] [id number] Business (1) In the event that this physician does not participate in your insurance network, please consult with your insurance company to find a nearby participating provider. Type Location Start [facility] Cardiology Follow Up (FT) FT.Cardiology Clinic 10/29/2023 3:45 PM 10/29/2023 4:00 PM Confirmed Comment: KIMBERLY Adams LAURIE A, have received the attached patient education materials/instructions and have verbalized understanding: Patient Signature __ Date Clinican/Nurse Signature Date HERE ARE THE MEDICATION CHANGES THAT OCCURRED DURING YOUR HOSPITAL STAY Medications to Continue with No Changes Other Medications acetaminophen (Tylenol 8 HR Arthritis Pain) 2 Tablets By Mouth every 12 hours. Last Dose: N ext Dose: diltiazem (Cardizem CD 240 mg/24 hours Cap-ER) 1 Capsules By Mouth every day. Refills: 1. Last Dose: N ext Dose: hydrochlorothiazide (hydrochlorothiazide 12.5 mg Tab) 1 Tablets By Mouth every day. Last Dose: N ext Dose: levothyroxine (levothyroxine 75 mcg (0.075 mg) Tab) 1 Tablets By Mouth every day. Last Dose: N ext Dose: multivitamin 1 tab By Mouth every day. Last Dose: N ext Dose: pantoprazole (pantoprazole 40 mg Oral EC Tab) 1 Tablets By Mouth every day. Last Dose: N ext Dose: potassium chloride (potassium chloride 10 mEq Cap-ER) 1 Capsules By Mouth every day for 30 Days. Refills: 5. Last Dose: N ext Dose: potassium chloride (potassium chloride 10 mEq Cap-ER) Last Dose: N ext Dose: rivaroxaban (Xarelto 20 mg oral tablet) 1 Tablets By Mouth every day for 90 Days. Refills: 3. Last Dose: N ext Dose: sumatriptan (Imitrex 25 mg Tab) 1 Tablets By Mouth As Directed as needed Migraine headache. Last Dose: N ext Dose: Comment: MEDICATION LIST PROVIDED FOR YOU IS A LIST OF YOUR CURRENT MEDICATIONS. PLEASE CARRY THIS WITH YOU AT ALL TIMES. acetaminophen (Tylenol 8 HR Arthritis Pain) 2 Tablets By Mouth every 12 hours. diltiazem (Cardizem CD 240 mg/24 hours Cap-ER) 1 Capsules By Mouth every day. Refills: 1. hydrochlorothiazide (hydrochlorothiazide 12.5 mg Tab) 1 Tablets By Mouth every day. levothyroxine (levothyroxine 75 mcg (0.075 mg) Tab) 1 Tablets By Mouth every day. multivitamin 1 tab By Mouth every day. pantoprazole (pantoprazole 40 mg Oral EC Tab) 1 Tablets By Mouth every day. potassium chloride (potassium chloride 10 mEq Cap-ER) 1 Capsules By Mouth every day for 30 Days. Refills: 5. potassium chloride (potassium chloride 10 mEq Cap-ER) rivaroxaban (Xarelto 20 mg oral tablet) 1 Tablets By Mouth every day for 90 Days. Refills: 3. sumatriptan (Imitrex 25 mg Tab) 1 Tablets By Mouth As Directed as needed Migraine headache. Pharmacy Information: Other: [facility] Comment: PATIENT EDUCATION INFORMATION Instructions: [place], [place] CARDIOVASCULAR DISCHARGE INSTR (more content not included)... Normal [facility] Operative Reporton Operative Report SURGERY DATE: 2022 PREOPERATIVE DIAGNOSIS: Dyspnea on exertion, shortness of breath, normal echocardiogram and normal stress test POSTOPERATIVE DIAGNOSIS: Normal coronary angiography, normal left ventricular size and function, normal pulmonary pressures, normal left ventricular end diastolic pressure OPERATION: Left heart catheterization, right heart catheterization, left ventricular angiogram I.V. CONTRAST DYE: 47 cc total SEDATION: Total of 2 mg of I.V. Versed COMPLICATIONS: None HISTORY OF PRESENT ILLNESS: The patient is a very pleasant 58 year old female previously seen by me approximately one year ago for paroxysmal atrial fibrillation that was actually first diagnosed in 2019 and associated hypertension. The patient is a nondiabetic, nonsmoker and no previous known coronary disease. The patient has had COVID twice, and is on chronic Xarelto therapy for her paroxysmal atrial fibrillation. The patient's main complaint in the office was dyspnea on exertion and shortness of breath. The patient underwent 2D echocardiogram with Doppler on 06/01/2022 which showed normal left ventricular size and function and pulmonary pressures. The patient also underwent a treadmill/MPI on 06/01/2022 which was felt to be normal. The patient has had several more episodes of atrial fibrillation and underwent successful direct current cardioversion by Dr. Velarde on 03/13/2023. The patient has been complaining mostly of worsening dyspnea on exertion and shortness of breath despite the fact that she is trying to exercise to get in shape. Given the patient's symptoms and despite her negative cardiac workup I recommended that she undergo a left and right heart catheterization to determine if she has undiagnosed coronary disease and/or pulmonary hypertension. The risk and benefits of the procedure were thoroughly explained to the patient including specific attention to lack of onsite surgical backup and written informed consent was obtained. PROCEDURE: The patient was brought to the Catheterization Laboratory in the fasting state and prepped and draped in the usual sterile fashion. The patient was off her Xarelto for approximately five days, and was loaded with Aspirin and Plavix. Under fluoroscopic guidance the right femoral artery was anesthetized with 1% lidocaine followed by access with a single anterior stick of a Cook needle followed by placement of an exchange length J-wire. Next, a 4 Puerto Rican sheath was placed without complications and flushed with Heparinized Saline. Next, the right femoral vein was accessed with a single anterior stick of a Cook needle followed by placement of a short J-wire under fluoroscopic guidance. A 7 sheath was advanced without difficulty and flushed with Heparinized Saline. Right heart catheterization was then performed which findings are as below. RESULTS: Right atrium is 8/8 with a mean pressure of 3. RV was 26/0 with a mean of 7. PA pressure was 21/6 with a mean of 13. Pulmonary wedge was 9/5 with a mean of 6. Simultaneous LV and wedge pressure showed no evidence of mitral stenosis. Simultaneous LV and RV pressure demonstrated no evidence of ventricular interdependence. Cardiac output by Sabine was 5.85. Cardiac output by thermal was 7.18. [place]-Andres catheter was then removed. The LV angiogram performed in the 30 degree right anterior oblique position demonstrated excellent anteroapical and inferior contractility with an overall ejection fraction of 75%. There was no significant mitral regurgitation. No significant gradient seen on pullback. Next the pigtail catheter was exchanged for a 4 [place]ican JL5 catheter. This was easily engaged into the left main coronary artery. There was no dampening or ventricularization upon engagement. RESULTS: Left main: The left main is a large vessel which bifurcates into a left anterior descending and a left circumflex. There are no significant lesions seen in the left main. Left anterior descending: The left anterior descending is a moderate size vessel which wraps around the apex of the heart. It appears to be angiographically normal. Diagonal branches: Diagonal #1 and diagonal #2 are angiographically normal. Left circumflex: The left circumflex is a nondominant vessel which essentially splits into an obtuse marginal which then splits into a superior and inferior branch. The left circumflex and its obtuse marginals are angiographically normal. Next, the JL5 catheter was exchanged over a wire for a 4 [place] 3DRC catheter. This was easily engaged into the right coronary artery. There was no dampening or ventricularization upon engagement. Right coronary artery: The right coronary artery is a large dominant vessel which bifurcates into a PDA and terminates into a posterolateral branch. There are no significant lesions seen in the right coronary, PDA or posterolateral branch. It is essentially angiographically normal. CONCLUSIONS: 1. Angiographically normal coronary arteries. 2. Hyperdynamic left ventr (more content not included)... Normal [facility] Comment on above: Result Comment: Elec tronically Signed By: EDD BERRY, Micheal Gifford\.br\Date and Time Signed: 09/23/23 10:29 EDT Patient Education - Texton 1 Patient Education - Text [place], [place] CARDIOVASCULAR DISCHARGE INSTRUCTIONS Diet: ? Resume pre-procedure diet. ? Increase water intake the next 2 days to flush dye out of the body. Activity: If groin access: ? Limit activity today. Do not operate a vehicle, machinery or power tools. ? NO LIFTING OVER 10 POUNDS (a gallon of milk weighs 8 pounds) for 3 days. ? Limit climbing stairs, bending, squatting and stooping for 3 days. ? May resume driving in 24 hours. ? No sexual activity for 1 week. ? Let pain/discomfort guide your activity. If you are having pain, stop. ? Return to the Emergency Room if you have trouble breathing, walking or nausea and vomiting. Medications: ? Resume pre-procedure medication, unless otherwise directed. ? Hold the following medications for 48 hours post procedure: Actoplus Met Glucophage Glucophage XR Glucovance Avandamet Fortamet Apo-metformin Glycon Michelle-metformin Glumetza Janumet Metaglip Riomet Glycomet *Minimal pain, soreness and/or discomfort is expected. *You may take OTC non-steroidal anti-inflammatory to manage discomfort, unless contraindicated. If pain is not controlled with the above medications, contact your physician. Site Care: ? Do not remove dressing for 24 hours unless it becomes saturated, then replace. ? Keep site clean and dry; inspect site daily. ? Do not use any lotions, powders, or ointments at the groin or wrist site for 1 week. ? May shower 24 hours after the procedure. Clean site with soap and water. Pat dry and apply band aid. No tub baths, swimming or hot tubs for 3 days Post Procedure: ? Soreness and tenderness to the site can last up to one week. ? Bruising may occur to site. ? A responsible adult should be with you for the first 24 hours after you arrive home. ? Keep follow-up appointment. ? No smoking for 24 hours as it increases the risk of developing blood clots. ? If you are interested in smoking cessation, contact [facility] at [phone], ext. [phone]. ? In the event you are unable to reach your physician, please call [facility] at [phone] and the ferryboat operator cable will assist you. Seek Immediate Medical Care for: ? Bleeding: Apply continuous pressure to the site and Call 911. ? Should the arm or leg become cold, numb, blue or white call your physician immediately. ? Signs of infection are redness, warmth, swelling, increased tenderness, colored drainage, fever or chills ? Chest pain ? Normal [facility] Outside Labson 09-16-2023 Outside Labs [id number]#[id number] Normal [facility] Alanine aminotransferase [En zymatic activity/volume] in Serum or PlasmaOrdered By: Kurtis Tyler on 09-13-2023 ALT [Catalytic activity/Vol] 17 U/L 7-52 [facility] Albumin [Mass/volume] in Ser um or Plasma by Bromocresol green (BCG) dye binding methoOrdered By: Kurtis Tyler on 09-13-2023 Albumin BCG dye [Mass/Vol] 4.4 g/dL 3.5-5.7 [facility] Alkaline phosphatase [Enzyma tic activity/volume] in Serum or PlasmaOrdered By: Kurtis Tyler on 09-13-2023 ALP [Catalytic activity/Vol] 93 U/L 34-104 [facility] Aspartate aminotransferase [ Enzymatic activity/volume] in Serum or PlasmaOrdered By: Kurtis Tyler on 09-13-2023 AST [Catalytic activity/Vol] 18 U/L 13-39 [facility] Basophils Auto (Bld) [#/Vol] Ordered By: Kurtis Tyler on 09-13-2023 Basophils (Bld) [#/Vol] 0.0 10*3/uL 0.0-0.2 [facility] Basophils/100 WBC Auto (Bld) Ordered By: Kurtis Tyler on 09-13-2023 Basophils/100 WBC (Bld) 0.5 % . [facility] Bilirubin.total [Mass/volume ] in Serum or PlasmaOrdered By: Kurtis Tyler on 09-13-2023 Bilirubin [Mass/Vol] 0.4 mg/dL 0.3-1.0 [facility] Calcium [Mass/volume] in Ser um or PlasmaOrdered By: Kurtis Tyler on 09-13-2023 Calcium [Mass/Vol] 9.6 mg/dL 8.6-10.3 [facility] Carbon dioxide, total [Moles /volume] in Serum or PlasmaOrdered By: Kurtis Tyler on 09-13-2023 CO2 [Moles/Vol] 28.7 mmol/L 21.0-31.0 [facility] Chloride [Moles/volume] in S jered or PlasmaOrdered By: Kurtis Tyler on 09-13-2023 Chloride [Moles/Vol] 103 mmol/L 98-107 [facility] Cholesterol [Mass/volume] in Serum or PlasmaOrdered By: Kurtis Tyler on 09-13-2023 Cholesterol [Mass/Vol] 205 mg/dL 140-200 [facility] Comment on above: Chol less than 200 m g/dl low riskChol 201-239 mg/dl borderline riskChol 240 mg/dl and greater high risk Cholesterol in LDL Calc [Mas s/Vol]Ordered By: Kurtis Tyler on 09-13-2023 Cholesterol in LDL [Mass/Vol] 97 mg/dL 0-100 [facility] Comment on above: LDL ATP III CLASSIFI CATIONLDL less than 100 mg/dL OptimalLDL 100-129 mg/dL Near or above optimalLDL 130-159 mg/dL Borderline highLDL 160-189 mg/dL HighLDL greater than 189 mg/dL Very high Cholesterol in VLDL Calc [Ma ss/Vol]Ordered By: Kurtis Tyler on 09-13-2023 Cholesterol in VLDL [Mass/Vol] 28 mg/dL [facility] Creatinine [Mass/volume] in Serum or PlasmaOrdered By: Kurtis Tyler on 09-13-2023 Creatinine [Mass/Vol] 0.73 mg/dL 0.60-1.20 [facility] Eosinophils Auto (Bld) [#/Vo l]Ordered By: Kurtis Tyler on 09-13-2023 Eosinophils (Bld) [#/Vol] 0.4 10*3/uL 0.0-0.45 [facility] Eosinophils/100 WBC Auto (Bl d)Ordered By: Kurtis Tyler on 09-13-2023 Eosinophils/100 WBC (Bld) 5.0 % . [facility] Erythrocyte distribution wid th Auto (RBC) [Ratio]Ordered By: Kurtis Tyler on 09-13-2023 Erythrocyte distribution width (RBC) [Ratio] 13.7 % 11.9-15.3 [facility] Globulin Calc (S) [Mass/Vol] Ordered By: Kurtis Tyler on 09-13-2023 Globulin (S) [Mass/Vol] 3.2 g/dL [facility] Glucose [Mass/volume] in Ser um or PlasmaOrdered By: Kurtis Tyler on 09-13-2023 Glucose [Mass/Vol] 89 mg/dL 70-100 [facility] Hematocrit Auto (Bld) [Volum e fraction]Ordered By: Kurtis Tyler on 09-13-2023 Hematocrit (Bld) [Volume fraction] 39.8 % 34.0-46.4 [facility] Hemoglobin [Mass/volume] in BloodOrdered By: Kurtis Tyler on 09-13-2023 Hemoglobin (Bld) [Mass/Vol] 13.3 g/dL 11.8-15.4 [facility] Leukocytes [#/volume] correc magaly for nucleated erythrocytes in Blood by Automated counOrdered By: Kurtis Tyler on 09-13-2023 WBC corrected for nucl RBC Auto (Bld) [#/Vol] 8.1 10*3/uL 3.8-11.6 [facility] Lymphocytes Auto (Bld) [#/Vo l]Ordered By: Kurtis Tyler on 09-13-2023 Lymphocytes (Bld) [#/Vol] 2.1 10*3/uL 1.00-4.8 [facility] Lymphocytes/100 WBC Auto (Bl d)Ordered By: Kurtis Tyler on 09-13-2023 Lymphocytes/100 WBC (Bld) 25.5 % . [facility] MCH Auto (RBC) [Entitic mass ]Ordered By: Kurtis Tyler on 09-13-2023 MCH (RBC) [Entitic mass] 31.7 pg 24.7-34.3 [facility] MCHC Auto (RBC) [Mass/Vol]Or dered By: Kurtis Tyler on 09-13-2023 MCHC (RBC) [Mass/Vol] 33.3 g/dL 32.0-35.0 [facility] MCV Auto (RBC) [Entitic vol] Ordered By: Kurtis Tyler on 09-13-2023 MCV (RBC) [Entitic vol] 95.2 fL 80-100 [facility] Monocytes Auto (Bld) [#/Vol] Ordered By: Kurtis Tyler on 09-13-2023 Monocytes (Bld) [#/Vol] 0.4 10*3/uL 0.0-0.8 [facility] Monocytes/100 WBC Auto (Bld) Ordered By: Kurtis Tyler on 09-13-2023 Monocytes/100 WBC (Bld) 5.5 % . [facility] Neutrophils Auto (Bld) [#/Vo l]Ordered By: Kurtis Tyler on 09-13-2023 Neutrophils (Bld) [#/Vol] 5.2 10*3/uL 1.8-7.7 [facility] Neutrophils/100 WBC Auto (Bl d)Ordered By: Kurtis Tyler on 09-13-2023 Neutrophils/100 WBC (Bld) 63.5 % . [facility] No Panel InformationOrdered By: Kurtis Tyler on 09-13-2023 Estimated GFR (CKD-EPI) > 60.0 mL/Min [facility] Nicotine Metabolite Negative Cutoff=25 [facility] Comment on above: Performed at: [employer] [facility] [employer] [address] [id number] Director: Leobardo Ernandez MD, Phone: [phone] Pharmacy Creatinine Clearance (Chem N/A [facility] Nucleated erythrocytes [Pres ence] in Blood by Automated countOrdered By: Kurtis Tyler on 09-13-2023 Nucleated RBC Auto Ql (Bld) 0.0 /100{WBC} 0-0.5 [facility] Platelet mean volume Auto (B ld) [Entitic vol]Ordered By: Kurtis Tyler on 09-13-2023 Platelet mean volume (Bld) [Entitic vol] 8.4 fL 6.3-10.7 [facility] Platelets Auto (Bld) [#/Vol] Ordered By: Kurtis Tyler on 09-13-2023 Platelets (Bld) [#/Vol] 317 10*3/uL 150-450 [facility] Potassium [Moles/volume] in Serum or PlasmaOrdered By: Kurtis Tyler on 09-13-2023 Potassium [Moles/Vol] 3.9 mmol/L 3.5-5.1 [facility] Protein [Mass/volume] in Ser um or PlasmaOrdered By: Kurtis Tyler on 09-13-2023 Protein [Mass/Vol] 7.6 g/dL 6.4-8.9 [facility] RBC Auto (Bld) [#/Vol]Ordere d By: Kurtis Tyler on 09-13-2023 RBC (Bld) [#/Vol] 4.18 10*6/uL 3.60-5.00 [facility] Serum or plasma albumin/glob ulin mass ratioOrdered By: Kurtis Tyler on 09-13-2023 Albumin/Globulin [Mass ratio] 1.4 {ratio} [facility] Serum or plasma anion gap de terminationOrdered By: Kurtis Tyler on 09-13-2023 Anion gap [Moles/Vol] 12.2 mmol[facility]L [facility] Serum or plasma high density lipoprotein (HDL) cholesterol measurementOrdered By: Kurtis Tyler on 09-13-2023 Cholesterol in HDL [Mass/Vol] 79 mg/dL 23- [facility] Comment on above: HDL CHOL ATP-III CLA SSIFICATION Cardiovascular RiskHDL > or equal to 60 mg/dL LOWHDL < 40 mg/dL HIGH Serum or plasma total choles terol/high density lipoprotein (HDL) cholesterol mass ratOrdered By: Kurtis Tyler on 09-13-2023 Cholesterol.total/Cho lesterol in HDL [Mass ratio] 2.6 {ratio} <5.0 [facility] Sodium [Moles/volume] in Ser um or PlasmaOrdered By: Kurtis Tyler on 09-13-2023 Sodium [Moles/Vol] 140 mmol/L 136-145 [facility] Thyrotropin [Units/volume] i n Serum or PlasmaOrdered By: Kurtis Tyler on 09-13-2023 TSH Qn 1.76 m[IU]/L 0.45-5.33 [facility] Triglyceride [Mass/volume] i n Serum or PlasmaOrdered By: Kurtsi Tyler on 09-13-2023 Triglyceride [Mass/Vol] 144 mg/dL 0-149 [facility] Comment on above: TRIG ATP III CLASSIF ICATIONTRIG less than 150 mg/dL NormalTRIG 150-199 mg/dL Borderline highTRIG 200-500 mg/dL High TRIG greater than 500 mg/dL Very highStandard traceable to the Center for Disease Conrtrol and Prevention (CDC) test method. Urea nitrogen [Mass/volume] in Serum or PlasmaOrdered By: Kurtis Tyler on 09-13-2023 Urea nitrogen [Mass/Vol] 13 mg/dL 7- [facility] WBC Auto (Bld) [#/Vol]Ordere d By: Kurtis Tyler on 09-13-2023 WBC (Bld) [#/Vol] 8.1 10*3/uL 3.8-11.6 [facility] Consent for Procedure/Surger yon 09-09-2023 Consent for Procedure/Surgery [id number]#[id number] Normal [facility] Physician Orderon 09-09-2023 Physician Order [id number]#[id number] Normal [facility] Auto Diffon 09-06-2023 Basophils/100 WBC (Bld) 0.7 % Normal 0.0-2.0 [facility] [facility] Comment on above: Order Comment: Order Added by Discern Expert. Performed By: #### 2 [id number], [id number], 5650930, 5176106 ####[facility] [address] [place] [address] Basophils/Leukocytes Auto (Bld) [Pure # fraction] 0.1 E9/L Normal 0.0-0.2 [facility] Comment on above: Order Comment: Order Added by Discern Expert. Performed By: #### 2 382235, [id number], 1186568, 4194583 ####[facility] [address] [place] [address] Eosinophils/100 WBC (Bld) 4.4 % Normal 0.0-8.0 [facility] Comment on above: Order Comment: Order Added by Discern Expert. Performed By: #### 2 353913, 24730717, 5056552, 4271210 ####[facility] [address] [place] [address] Eosinophils/Leukocyte s Auto (Bld) [Pure # fraction] 0.4 E9/L Normal 0.0-0.5 [facility] Comment on above: Order Comment: Order Added by Discern Expert. Performed By: #### 2 398661, 91966530, 3789299, 8224271 ####[facility] [address] [place] [address] Lymphocytes/100 WBC (Bld) 26.5 % Normal 14.0-50.0 [facility] Comment on above: Order Comment: Order Added by Discern Expert. Performed By: #### 2 599462, 38752853, 8123030, 2566194 ####[address] [address] Lymphocytes/Leukocyte s Auto (Bld) [Pure # fraction] 2.3 E9/L Normal 1.0-4.0 [facility] Comment on above: Order Comment: Order Added by Discern Expert. Performed By: #### 2 622092, 36781136, 6015416, 7040899 ####[address] [address] Monocytes/100 WBC (Bld) 6.4 % Normal 4.0-14.0 [facility] Comment on above: Order Comment: Order Added by Discern Expert. Performed By: #### 2 204135, 48164777, 0944105, 6586988 ####[address] [address] Monocytes/Leukocytes Auto (Bld) [Pure # fraction] 0.6 E9/L Normal 0.2-1.0 [facility] Comment on above: Order Comment: Order Added by Yoli Expert. Performed By: #### 2 153297, 47053388, 9574549, 2444296 ####[address] [address] Neutrophils/100 WBC (Bld) 62.0 % Normal 36.0-75.0 [facility] Comment on above: Order Comment: Order Added by Discern Expert. Performed By: #### 2 097581, [id number], 7396452, 7714323 ####[address] [address] Neutrophils/Leukocyte s Auto (Bld) [Pure # fraction] 5.4 E9/L Normal 2.0-7.5 [facility] Comment on above: Order Comment: Order Added by Discern Expert. Performed By: #### 2 727493, 91353146, 4229201, 7569965 ####[facility] [address] [place] [address] BMPon 09-06-2023 Anion gap [Moles/Vol] 18 mmol/L High 6-16 [facility] Comment on above: Performed By: #### 2 341018, [id number], 9053277, 2512572 ####[facility] [address] [place] [address] Calcium [Mass/Vol] 9.3 mg/dL Normal 8.9-11.1 [facility] Comment on above: Performed By: #### 2 164216, 46263181, 3435924, 3683699 ####[facility] [address] [place] [address] Chloride [Moles/Vol] 101 mmol/L Normal 101-111 [facility] Comment on above: Performed By: #### 2 756994, 08504318, 1483346, 9487455 ####[facility] [address] [place] [address] CO2 [Moles/Vol] 25 mmol/L Normal 21-31 [facility] Comment on above: Performed By: #### 2 893221, 12237214, 5159103, 4717577 ####[facility] [address] [place] [address] Creatinine [Mass/Vol] 0.6 mg/dL Normal 0.5-1.3 [facility] Comment on above: Performed By: #### 2 152663, 56026654, 9788628, 9945710 ####[facility] [address] [place] [address] Glucose [Mass/Vol] 92 mg/dL Normal 55-199 [facility] Comment on above: Result Comment: If t his glucose result represents a fasting glucose, interpretation should refer to the following reference range: 55-99 mg/dL Performed By: #### 2 749926, 21592579, 2144286, 7106982 ####[facility] [address] [place] [address] Potassium [Moles/Vol] 3.8 mmol/L Normal 3.5-5.3 [facility] Comment on above: Performed By: #### 2 509727, 09421064, 8673687, 5815952 ####[facility] [address] [place] [address] Sodium [Moles/Vol] 140 mmol/L Normal 135-145 [facility] Comment on above: Performed By: #### 2 760443, 56212780, 5495700, 4997653 ####[facility] [address] [place] [address] Urea nitrogen [Mass/Vol] 15 mg/dL Normal 5-21 [facility] Comment on above: Performed By: #### 2 804471, 61085054, 0384116, 3296199 ####[facility] [address] [place] [address] Urea nitrogen/Creatinine [Mass ratio] 25 No Units High 10-20 [facility] Comment on above: Performed By: #### 2 121950, 30078649, 3512348, 9551975 ####[facility] [address] [place] [address] CBC w/ Auto Diffon Erythrocyte distribution width (RBC) [Ratio] 13.6 % Normal 10.9-14.2 [facility] Comment on above: Performed By: #### 2 945607, 24904840, 9588525, 3466602 ####[facility] [address] [place] [address] Hematocrit (Bld) [Volume fraction] 40.4 % Normal 34.0-46.0 [facility] Comment on above: Performed By: #### 2 814551, 84578284, 6644875, 7490639 ####[facility] [address] [place] [address] Hemoglobin (Bld) [Mass/Vol] 13.5 g/dL Normal 12.0-16.0 [facility] Comment on above: Performed By: #### 2 064554, 38416796, 6019297, 2218166 ####[place] [id number] MCH (RBC) [Entitic mass] 31.3 pg Normal 27.0-34.0 [facility] Comment on above: Performed By: #### 2 175384, 20711845, 3409454, 2702650 ####[place] [id number] MCHC (RBC) [Mass/Vol] 33.5 g/dL Normal 31.4-36.0 [facility] Comment on above: Performed By: #### 2 055146, 89295785, 5722739, 9598640 ####[place] [id number] MCV (RBC) [Entitic vol] 93.3 fL Normal 80.0-100.0 [facility] Comment on above: Performed By: #### 2 897652, 66057081, 7752922, 9152356 ####[place] [id number] Platelet mean volume (Bld) [Entitic vol] 8.2 fL Normal 6.4-10.8 [facility] Comment on above: Performed By: #### 2 646827, 25774519, 0817329, 1848255 ####[place] [id number] Platelets (Bld) [#/Vol] 318.0 E9/L Normal 150.0-500. 0 [facility] Comment on above: Performed By: #### 2 185369, 26198931, 0914537, 6783182 ####[address] [address] RBC (Bld) [#/Vol] 4.3 E12/L Normal 4.3-5.9 [facility] Comment on above: Performed By: #### 2 909972, 37144289, 8643591, 3410774 ####[facility] [address] [place] [address] WBC corrected for nucl RBC Auto (Bld) [#/Vol] 8.7 E9/L Normal 4.0-11.0 [facility] Comment on above: Performed By: #### 2 619281, 25960884, 3168561, 8180215 ####[facility] [address] [place] [address] CHEMISTRYOrdered By: Ivone Fletcher on 09-06-2023 Anion gap [Moles/Vol] 18 mmol/L High 6 - 16 mEq/L [facility] Remisol Calcium [Mass/Vol] 9.3 mg/dL Normal 8.9 - 11. 1 mg/dL [facility] Chloride [Moles/Vol] 101 mmol/L Normal 101 - 1 11 mmol/L [facility] CO2 [Moles/Vol] 25 mmol/L Normal 21 - 31 mmol/L [facility] Creatinine [Mass/Vol] 0.6 mg/dL Normal 0.5 - 1.3 mg/dL [facility] Remisol Glucose [Mass/Vol] 92 mg/dL Normal 55 - 199 mg/dL [facility] Remisol Comment on above: Interpretive Data: I f this glucose result represents a fasting glucose, interpretation should refer to the following reference range: 55-99 mg/dL Potassium [Moles/Vol] 3.8 mmol/L Normal 3.5 - 5.3 mmol/L [facility] Remisol Sodium [Moles/Vol] 140 mmol/L Normal 135 - 145 mmol/L [facility] Remisol Urea nitrogen [Mass/Vol] 15 mg/dL Normal 5 - 21 mg/dL [facility] Remisol Urea nitrogen/Creatinine [Mass ratio] 25 mg/mg High 10 - 20 [facility] Remisol CHEMISTRYOrdered By: SYSTEM SYSTEM on 09-06-2023 GFR/1.73 sq M.predicted among non-blacks MDRD (S/P/Bld) [Vol rate/Area] 104 mL/min/1.73 m2 Normal >=59mL/min /1.73 m2 [facility] Chem S Comment on above: Interpretive Data: C hronic kidney disease could be indicated at eGFR's of less than 60 mL/min/1.73m2. Kidney failure is indicated at less than 15 mL/min/1.73m2. Consent for Treatmenton 08-25 Consent for Treatment [id number]#1.00TIFF Normal [facility] Consent for Treatment [id number]#1.00TIFF Normal [facility] HEMATOLOGYOrdered By: SYSTEM SYSTEM on 09-06-2023 Basophils/100 WBC (Bld) 0.7 % Normal 0.0 - 2.0 % [facility] Basophils/Leukocytes Auto (Bld) [Pure # fraction] 0.1 E9/L Normal 0.0 - 0.2 E9/L [facility] Eosinophils/100 WBC (Bld) 4.4 % Normal 0.0 - 8.0 % [facility] Eosinophils/Leukocyte s Auto (Bld) [Pure # fraction] 0.4 E9/L Normal 0.0 - 0.5 E9/L [facility] Lymphocytes/100 WBC (Bld) 26.5 % Normal 14.0 - 50.0 % [facility] Lymphocytes/Leukocyte s Auto (Bld) [Pure # fraction] 2.3 E9/L Normal 1.0 - 4.0 E9/L [facility] Monocytes/100 WBC (Bld) 6.4 % Normal 4.0 - 14.0 % [facility] Monocytes/Leukocytes Auto (Bld) [Pure # fraction] 0.6 E9/L Normal 0.2 - 1.0 E9/L [facility] Neutrophils/100 WBC (Bld) 62.0 % Normal 36.0 - 75.0 % [facility] Neutrophils/Leukocyte s Auto (Bld) [Pure # fraction] 5.4 E9/L Normal 2.0 - 7.5 E9/L [facility] HEMATOLOGYOrdered By: Manny Alvarez on 09-06-2023 Erythrocyte distribution width (RBC) [Ratio] 13.6 % Normal 10.9 - 14.2 % [facility] Hematocrit (Bld) [Volume fraction] 40.4 % Normal 34.0 - 46.0 % [facility] Hemoglobin (Bld) [Mass/Vol] 13.5 g/dL Normal 12.0 - 16.0 gm/dL [facility] MCH (RBC) [Entitic mass] 31.3 pg Normal 27.0 - 34.0 pg [facility] MCHC (RBC) [Mass/Vol] 33.5 g/dL Normal 31.4 - 36.0 gm/dL [facility] MCV (RBC) [Entitic vol] 93.3 fL Normal 80.0 - 100.0 fL [facility] Platelet mean volume (Bld) [Entitic vol] 8.2 fL Normal 6.4 - 10.8 fL [facility] Platelets (Bld) [#/Vol] 318.0 E9/L Normal 150.0 - 500.0 E9/L [facility] RBC (Bld) [#/Vol] 4.3 E12/L Normal 4.3 - 5.9 E12/L [facility] WBC corrected for nucl RBC Auto (Bld) [#/Vol] 8.7 E9/L Normal 4.0 - 11.0 E9/L [facility] Heart and Vascular Office/Cl inic Noteon 09-06-2023 Heart and Vascular Office/Clinic Note History of Present Illness Hanna Harris is a 58 year old female previously seen by me in the hospital about a year ago, with past medical history positive for paroxysmal atrial fibrillation on Xarelto- first diagnosed at [facility] January 2020-with associated hypertension, hypothyroid, and morbid obesity. She is not diabetic, non-smoker, and no known CAD. She had normal exercise stress with nuclear imaging, normal echo January 2020. Patient return to the emergency room on 04/27/2022 with new onset rapid atrial fibrillation in the 140s to 150s, then spontaneously cardioverted back to normal sinus rhythm. Her troponins were negative and she was subsequently discharged home for follow-up in our office. Her Xarelto was discontinued recently due to knee pain. This was recently restarted after hip injection. Patient converted spontaneously back to normal sinus rhythm. She is now here in follow-up. Patient is very much aware when she goes in and out of atrial fibrillation has had no further atrial fibrillation. Patient's had 3 episodes mostly at night while she is sleeping of paroxysmal atrial fibrillation. As part of her cardiac work-up she underwent a 2D echo with Doppler on 06/01/2022 with the following results: (06/01/2022 11:09 EDT Echo Transthoracic Complete) SUMMARY/CONCLUSION: 1. Normal left ventricular size and function with a left ventricular ejection fraction of 65%. 2. Normal diastolic function for age. 3. Trivial tricuspid regurgitation with normal right ventricular systolic pressure of 35 mmHg. 4. No old echocardiogram for comparison. [1] In addition she underwent a treadmill/MPI on 06/01/2022 with the following results: (06/01/2022 10:16 EDT NM Myocardial Spect Multi Rest) IMPRESSION: 1. Normal, adequate, treadmill/myocardial perfusion imaging. Negative for ischemia by electrocardiographic and myocardial perfusion imaging. No anginal symptoms noted. No arrhythmias noted. 2. Appropriate blood pressure response to exercise. 3. Average exercise capacity for age. 4. Normal TID of 0.74. 5. Normal left ventricular size and function with an ejection fraction of 65%. 6. This is a low risk study. [2] Patient was recently admitted in mid February 2023 after she fell down in her bathroom, and was found to be in atrial fibrillation. She was admitted to the hospital and underwent successful elective DC cardioversion by Dr. Wylie on 03/13/2023 and subsequently discharged. She is now here in follow-up. Patient now returns for follow-up. The patient has been trying to exercise as best she can, but now has noted worsening dyspnea on exertion, shortness of breath, and left upper chest pain rating down her left arm. In addition she had a sleep study done which showed marginal obstructive sleep apnea. The patient chose to do exercise and weight loss to facilitate optimal pulmonary parameters. She is not on CPAP. In our office today her blood pressure is 136/82 and pulse is 75 and regular. Physical exam demonstrates 2+ carotid upstroke bilaterally, no carotid bruits, clear lungs bilaterally, regular rate and rhythm, normal S1/S2, no S3 or S4. No murmurs are detected.. EKG dated 05/02/2022 shows sinus bradycardia at a rate of 56, normal axis, normal intervals, no evidence of previous myocardial infarction and low voltage in the precordial leads.. EKG dated 01/11/2023 shows sinus bradycardia at a rate of 59 beats a minute, poor R wave progression across the precordium possibly secondary to lead misplacement. Lipids dated 03/23/2021 show an HDL of 76 and an LDL of 97. EKG dated 03/25/2023 shows normal sinus rhythm, low voltage in the precordial leads, possible old anterior wall myocardial infarction versus lead misplacement. EKG dated 09/06/2023 shows normal sinus rhythm, normal axis, low voltage in the precordial leads. Review of Systems Constitutional: no fever, no chills, no weakness, no fatigue Respiratory: no shortness of breath, no cough, no orthopnea, no wheezing Cardiovascular: no chest pain, no palpitations, no edema Neuro: no dizziness no light headed no syncope Additional ROS info: Except as noted in the above Review of Systems and in the History of Present Illness all other systems have been reviewed and are negative or noncontributory. Physical Exam General: alert, no acute distress Neck: Supple, noJVD nocarotid bruit Cardiovascular: regular rate and rhythm, no murmur normal peripheral perfusion Respiratory: Lungs CTA, respirations non labored Extremities: no edema Neurological: oriented x 4, LOC appropriate for age, sensation equal & normal bilaterally, speech normal Skin: Warm, dry, intact- no rash or concerning lesions Assessment/Plan 1. Chest pain: Patient has had progressively worsening chest pain and shortness of breath/dyspnea on exertion for the past several months, to the point now where she is having difficulty exercising which is walking her dog. Although her cardiac evaluation was -1-year ago, she has had worsening symptoms. There (more content not included)... Normal [facility] Comment on above: Result Comment: Elec tronically Signed By: EDD BERRY, Micheal Gifford\.maria isabel\Date and Time Signed: 09/06/23 12:14 EDT Physician Orderon 09-06-2023 Physician Order [id number]#1.00TIFF Normal [facility] eGFRon 09-06-2023 GFR/1.73 sq M.predicted among non-blacks MDRD (S/P/Bld) [Vol rate/Area] 104 mL/min/1.73 m2 Normal >=59 [facility] Comment on above: Order Comment: Order added by Discern Expert. Result Comment: Lead Carpenter antonio kidney disease could be indicated at eGFR's of less than 60 mL/min/1.73m2. Kidney failure is indicated at less than 15 mL/min/1.73m2. Performed By: #### 2 [id number], [id number], [id number], [id number] ####[facility] [address] [place] [address] Consent for Treatmenton Consent for Treatment [id number]#1.00CD:[address] [facility] Heart and Vascular Office/Cl inic Noteon 05-01-2023 Heart and Vascular Office/Clinic Note History of Present Illness Hanna Harris is a 58 year old female previously seen by me in the hospital about a year ago, with past medical history positive for paroxysmal atrial fibrillation on Xarelto- first diagnosed at [facility] January 2020-with associated hypertension, hypothyroid, and morbid obesity. She is not diabetic, non-smoker, and no known CAD. She had normal exercise stress with nuclear imaging, normal echo January 2020. Patient return to the emergency room on 04/27/2022 with new onset rapid atrial fibrillation in the 140s to 150s, then spontaneously cardioverted back to normal sinus rhythm. Her troponins were negative and she was subsequently discharged home for follow-up in our office. Her Xarelto was discontinued recently due to knee pain. This was recently restarted after hip injection. Patient converted spontaneously back to normal sinus rhythm. She is now here in follow-up. Patient is very much aware when she goes in and out of atrial fibrillation has had no further atrial fibrillation. Patient's had 3 episodes mostly at night while she is sleeping of paroxysmal atrial fibrillation. As part of her cardiac work-up she underwent a 2D echo with Doppler on 06/01/2022 with the following results: (06/01/2022 11:09 EDT Echo Transthoracic Complete) SUMMARY/CONCLUSION: 1. Normal left ventricular size and function with a left ventricular ejection fraction of 65%. 2. Normal diastolic function for age. 3. Trivial tricuspid regurgitation with normal right ventricular systolic pressure of 35 mmHg. 4. No old echocardiogram for comparison. [1] In addition she underwent a treadmill/MPI on 06/01/2022 with the following results: (06/01/2022 10:16 EDT NM Myocardial Spect Multi Rest) IMPRESSION: 1. Normal, adequate, treadmill/myocardial perfusion imaging. Negative for ischemia by electrocardiographic and myocardial perfusion imaging. No anginal symptoms noted. No arrhythmias noted. 2. Appropriate blood pressure response to exercise. 3. Average exercise capacity for age. 4. Normal TID of 0.74. 5. Normal left ventricular size and function with an ejection fraction of 65%. 6. This is a low risk study. [2] Patient was recently admitted in mid February 2023 after she fell down in her bathroom, and was found to be in atrial fibrillation. She was admitted to the hospital and underwent successful elective DC cardioversion by Dr. Wylie on 03/13/2023 and subsequently discharged. She is now here in follow-up. From a cardiac standpoint she denies any chest pain, angina, shortness of breath or dyspnea on exertion. Patient has begun exercising by riding her stationary bike as well as walking stairs. She lost about 10 pounds while on Ozempic but then discontinued it due to constipation. She gained her weight back, and is most likely going to go back on Ozempic or something similar. She has never been evaluated for sleep apnea, but she has no snoring, but does have excessive daytime somnolence although she is obese. She has had no further atrial fibrillation to her knowledge since her last visit. Patient is very aware of when she goes in and out of atrial fibrillation. Patient still in normal sinus rhythm. Since increasing her Toprol, she felt unwell and fatigued and tired. She cut her Toprol-XL 50 mg in half to 25 mg twice daily but this has really not improved her overall symptoms. We then switched her from Toprol to Cardizem and her symptoms completely resolved. She has had no atrial fibrillation since her last visit to the emergency room at which time she got cardioverted. She denies any chest pain or anginal symptoms. In our office today her blood pressure is 136/76 and pulse is 58 and regular. Physical exam demonstrates 2+ carotid upstroke bilaterally, no carotid bruits, clear lungs bilaterally, regular rate and rhythm, normal S1/S2, no S3 or S4. No murmurs are detected.. EKG dated 05/02/2022 shows sinus bradycardia at a rate of 56, normal axis, normal intervals, no evidence of previous myocardial infarction and low voltage in the precordial leads.. EKG dated 01/11/2023 shows sinus bradycardia at a rate of 59 beats a minute, poor R wave progression across the precordium possibly secondary to lead misplacement. Lipids dated 03/23/2021 show an HDL of 76 and an LDL of 97. EKG dated 03/25/2023 shows normal sinus rhythm, low voltage in the precordial leads, possible old anterior wall myocardial infarction versus lead misplacement. Review of Systems Constitutional: no fever, no chills, no weakness, no fatigue Respiratory: no shortness of breath, no cough, no orthopnea, no wheezing Cardiovascular: no chest pain, no palpitations, no edema Neuro: no dizziness no light headed no syncope Additional ROS info: Except as noted in the above Review of Systems and in the History of Present Illness all other systems have been reviewed and are negative or noncontributory. Physical Exam General: alert, no acute distress Neck: Supple, noJVD nocarotid bruit Cardiovascular: regular rate (more content not included)... Normal [facility] Comment on above: Result Comment: Elec tronically Signed By: Edd BERRY, Micheal Gifford\.br\Date and Time Signed: 05/01/23 12:07 EDT Physician Orderon 05-01-2023 Physician Order [id number]#1.00CD:[address] [facility] Formson 04-11-2023 Forms [id number]#1.00CD:127 [facility] Consent for Treatmenton 03-25 Consent for Treatment [id number]#1.00CD:127 [facility] Heart and Vascular Office/Cl inic Noteon 04-08-2023 Heart and Vascular Office/Clinic Note Chief Complaint 2 week BP Check History of Present Illness Meghan Ag is a 58-year-old female patient of Dr. Puga with past medical history positive for paroxysmal atrial fibrillation, hypertension, GERD. She is anticoagulated with Xarelto. She has a fairly recent hospitalization for A-fib with RVR and underwent DCCV which was successful with Dr. Velarde. At her last visit with Dr. Puga, she was changed from metoprolol to diltiazem due to fatigue. She is here today for blood pressure check. Her blood pressure readings have been stable at home. She is doing well less fatigued and palpitations are reduced. Has some mild shortness of breath with exertion but this seems to be getting better Review of Systems PHQ Score Initial Depression Screen Score: 0 Constitutional: no fever, no chills, no weakness, no fatigue Respiratory: Improving shortness of breath, no cough, no orthopnea, no wheezing Cardiovascular: no chest pain, no palpitations, no edema Neuro:no dizziness no light headed no syncope Additional ROS info: Except as noted in the above Review of Systems and in the History of Present Illness all other systems have been reviewed and are negative or noncontributory. Physical Exam Vitals & Measurements HR: 63(Peripheral) BP: 128/84 SpO2: 99% HT: 66 in HT: 167 cm WT: 116.2 kg WT: 255.64 lb BMI: 41.67 General: alert, no acute distress Neck: Supple, noJVD nocarotid bruit Cardiovascular: regular rate and rhythm, no murmur normal peripheral perfusion Respiratory: Lungs CTA, respirations non labored Extremities:no edema Neurological: oriented x 4, LOC appropriate for age, sensation equal & normal bilaterally, speech normal Skin: Warm, dry, intact- no rash or concerning lesions Assessment/Plan 1. PAF (paroxysmal atrial fibrillation) (I48.0: Paroxysmal atrial fibrillation) Continue current medications, she is doing well with the diltiazem. She will continue anticoagulation with Xarelto to reduce risk of stroke. 2. HTN (hypertension) (I10: Essential (primary) hypertension) Blood pressure is well controlled on current medications Follow-up With When Contact Information Edd BERRY, Micheal Mcginnis [place], [place] [id number]- [id number] Additional Instructions: Keep previously scheduled appointment with Dr. Puga Problem List/Past Medical History Ongoing Swanson's esophagus without dysplasia Change in bowel habits Clostridium difficile diarrhea Colon polyps Fundic gland polyps of stomach, benign GERD without esophagitis HTN (hypertension) Hypothyroidism PAF (paroxysmal atrial fibrillation) Palpitations Historical No qualifying data Procedure/Surgical History Cardioversion (03/13/2023), Colonoscopy (04/28/2021), EGD (esophagogastroduodenoscop y) gastric outlet reduction (04/28/2021), Esophagogastroduodenoscopy (03/29/2021), Hip arthroplasty (11/25/2012), Appendectomy (11/25/2005), Bilateral coblation tonsillectomy (11/25/1969), Cholecystectomy, Hysterectomy. Medications Cardizem CD 240 mg/24 hours Cap-ER, 240 mg= 1 cap(s), Oral, Daily, 5 refills hydrochlorothiazide 12.5 mg Tab, 12.5 mg= 1 tab(s), Oral, Daily Imitrex 25 mg Tab, 25 mg= 1 tab(s), Oral, As Directed, PRN levothyroxine 75 mcg (0.075 mg) Tab, 75 mcg= 1 tab(s), Oral, Daily meloxicam 7.5 mg oral tablet, 7.5 mg= 1 tab(s), Oral, Daily Metamucil 525 mg oral capsule, 1050 mg= 2 cap(s), Oral, Daily, 1 refills multivitamin, 1 tab, Oral, Daily pantoprazole 40 mg Oral EC Tab, 40 mg= 1 tab(s), Oral, Daily SUMAtriptan 25 mg Tab Tylenol 8 HR Arthritis Pain, 2 tab(s), Oral, q12hr Xarelto 20 mg oral tablet, 20 mg= 1 tab(s), Oral, Daily, 5 refills Allergies CeleBREX (Unknown) oxyCODONE (Unknown) sulfa drugs (Unknown) Social History Alcohol Wine, 03/12/2023 1-2 times per year, 03/28/2021 Current, 03/17/2021 Substance Abuse Tobacco - Denies Tobacco Use, 03/17/2021 Never (less than 100 in lifetime) Tobacco Use:. Never Smokeless Tobacco Use:., 04/08/2023 Family History Acute myocardial infarction: Father. Cardiac arrest: Father. Primary malignant neoplasm of female breast: Mother. Primary malignant neoplasm of skin: Mother. [facility] Comment on above: Result Comment: Elec tronically Signed By: LISETH PINK, April Edgar\.br\Date and Time Signed: 04/08/23 13:51 EDT Coding Summary.on 04-02-2023 Coding Summary. CD:[id number] Ww+PGh lYWQ+[id number] 0NMTElOSywgQVBQTElOSyIgbmF qCH0nbMPtIEIw IC8+OD1hTJAzHqwslYVhq0E5mJ G9H93qnf6bDRanyGQ3MNRnXoCs airfw1irhOu3HQteAzvmYlBf RLXpbL40RKE2yP61Cf23eJLxfG Bag1bvkSi3EoNzZAThEVM3oVwi YSnli7HrBBNnY26sjFXxt7H7 NVEpaCmhzZJfSnVdrGT8oP0sIE nfmstqw7unjtfnTnk1dq77rQEh o1A7xLO3O5BrveM1FJPneSTd CzkikZAQcP7wikfxu2bnzqwkWr NvGZYpYTk5TNs7XVYmsEwtGsMs HP15ERC5VMZesdTnI8WkQTQb fTrxUlV9o5K4Wk0BR9BTPlkeH7 VNTUFSWTwvdGQ+BG92jc70I7Sg SramPoi1UZIgEKH2hDM5nW6o YKXbBRhsr6F6yTJ5O7SmpoDhng 7zl4syTBEdTKrjX71gbHWga9R7 UUBheQW0SAMorIsnHoDkxN49 Oyc+VXSqfCkhr3AsIxvqr2xcf3 rrzWv0WfhlCQIcjfVahYfmWDR1 d2EyOw3wFWIamYT0zTT4jC1e OyMxNtP1FPjdP940NbErnHPiDu vwY12eD3ZcgTN+QRStUap8WGSn pHleSN3mJ9LpYQTpsurwwPLb oDsaRK3aOCXsikugIFTbbR0wUB NqI9n0RbJvBdS0EKzvM4NxTDTj tlbuBc36eB5sBhSjNzR5NMbv Y6RfizH9ITTjkCTvUJvePOM8T8 6bo9R8VRCjUHVjOWP6dMU7sP6r bGlnbjogbGVmdDsgdmVydGlj TCoyZCnzH024PEWfjDiiXgZaAE luZyBEYXRlOiAgMDUvMDkvMjAy MzwvdGQ+RNPdLYZ8fDaqVVTm pZGpJAkkAy1fcSxscZkrWR8oVC VouordTQXbzI2uKDJozRVoyVrl AF4cYOQptppgl718TjGxNBO8 HHMyiEKwW9KsyY2lXgNtJZTwWW OzH7MmdEGuVNaoH425MCkwVmY7 TJAeltLeY8AlQDLynFouIwN2 c8X9Vd2Ln6UcevtjB0KiuISeSt RrFxzpBOf9D3DhCfoxjDD+PC90 BRKsMB45BUj0KXN1mXprFXva OTRvE5KslK4lWyRkBPIfHSZnPt c+PHRhYmxlIHdpZHRoPScxMDAl TnBryBbzUR6qQv4iHDTeGXWh jYyryPOzRfIql5yfYHXtYWvwBE 3feWhxG9IirIQ4OYSqs3e2Ik79 E74rD5GhsFP+HXXeaUV2kRP9 fB0vSlDsRhE8IXfpL600YuQuqV RsKuulz3dph7ykzAc6MhO2OSCo zyIdkOpuGPE9w0WiJp55Q46n IHdpZHRoPSIxNSUiIHZhbGlnbj 4fvU1dYm5+TUUbmUM1cGO6uU7p ToRwFyO3XNxzT470NxFgtYGj Crauz3apy3xxvSy4AfYsIOSjuf ZudOzwGOD3v5WnDf75S6XfwBqw l3ImZhh1ul82fBQuu6N7uNQ5 D1GgWIYohlywuOLzlOcaYC3tUP KavcqdYIJmhG0mYFMtE9z9OgOt XpF1RCxjG9WwuiP2YROgwNPm EOIfbHIVqJ4axzwrj8elrnksAk GxQNYgUVa9KJu1LULrgZnyRiDr KJK1YuV4AWV4dULwuZ2chThh fbqcjO6rHyo+UAB6mJZhwYVENG 1lOjwvdGQ+VCQxDIF4gLtcUKxx WORypD2nBMDlE9b3NuFjLmC0 SEhhZ9SzaqK7ZUOhdMTnUNEtkM KInG3spjmqu4qbepvdQcXgUQDe PZv0HMz7YZJclRlcCnLiJKD9 ZiV9SIC5rBQntS6xkInjozbfzX 9wOyc+QjpvhOgpRVF0GZq8W5Zj Yjx4ZKTzvOvzPW3qvBNyVFrb Kn3qeYzezIjrEJ5rSUAoelaar6 09BmAta4zsGYYdyYUiAXrfIPK4 Z84xw8K6QMZfTDAaMTK8eGF2 wH4wpHouclzzeUFzlDgyccRykP ddYKfaIEaoX236QVXpuDfgMhNl RFd9O1OvTdo7WSYihJvuSF3s qPKqEEbkZp5mrJfhvKmiDC8jMK Ioyzsvg034FoElp3igLOKhrAMu HHkgXEY6U84xl4N3QTDkZRUq JXR8vNO6lQ0bxBxlbyezxDZatA emraMlaDhdWElnHXxgA772GWOp eNwxDbPveLa6J1HlNey4DJUa iPtsWU6xfXFoBLbzHl6qpHpocV lpHB1aCFJrkhyad534PqEnd1aa TJZtwXRtZRugIJY0U35jt4Z4 PYYqIHMrZFP8qBW3mN6chCuddi ogbGVmdDsgdmVydGljYWwtYWxp N605VHWajKtsMoEtkMindiIs FYlzGAa1O8GkGvqqgLK+PC90YW BfVZ48iSKfbHWlh7zblVm9QnHh OJZnEZT9dDpaPDwvm8GmKAPp R61ffHNes3J1IQWceBynvIFdYy YrjML1eE9aWDatdugtg5ylviul Nybtk6glak37uW53M82dVYim ZQNiGXVzDQRgFKPpgIlwmk6ryS 9wIi8+BYEnbKG8yHW7mI1sCKMb ZsB4DVzbF222NaHzfTLlUfba p0coj2wseXx8TbD5DMLyjcBhrL jtOHB3k8UzMe50N04zUVsnYDKk SNPnILZgIWLeuAxgdk1ifC1o Ii8+EPPdlBO1nIB8rR0jSpPrZq I4CIkgO388ByLvaTJyAhjvX42d F8AtwWV+XMEnXbr9BWMlqKui AH8jxFReSAayWn1mINU7HvDyJu OwXJgcK0PxAJEtkehzrdrtaTV5 ELZpKALusS36Xt8jwWdpPHIo gGTDaS3kispox3egtokuObVdJR FgDRv6MXc9VHOdqWmjOpVtNHW1 FgI6KPJ5mORsrX7vmOmdzcqc xX5lM3XaTXWgjizxKb61jN4yHk UoPdC4BLzcYuu+RVJGLCBMQVVS SUUgQTwvdGQ+ADSnSDC1rKvm TQmwERTlxB7kJUKmG5t6RoViPq F7YVtmB2CwDDPelpbwNj09kB1j SoLjFhF4UQyrM7KfvjR0IQUy bWBfLRpcIQY9G75ap4D8QJRfJW BiKFN9mFN3jP5njLbzqsyvlQZx yYrdrxAsoVqvFWkaLOgzH252 CFTavSiaGtW7WfV2GtA7SsA7B8 IeBbd2NQAqrHrrID4crPKtZXxg Gk6sqPbshVefET6iDTFykmtf NFPhvO0xABYcoKQscXfoUY6oGP Oingwam460NhJwXYG5FZWzmYTm B6IrbE9aDgIjNCGpLQEuB1Iu xBYhSBnoE436WFsqIcV6TRPctc NfM3OkMFVvlTyxTsE7w9M3Br70 OCBZZWFyczwvdGQ+PHRkIHN0 cRsmVEghQLIshP1bXIFdI5a0Ck FeDiD1SRixF3HkMYRufcajKo73 zB7yKxXjDcP5AEloP8XkbqF1 AWFxeXAvQKbhHSP6G73zu4L3ES CfOIOvUCD6sAB0jQ6vkDeupmvv bGVmdDsgdmVydGljYWwtYWxp U085YIAgkOxnSmVtyTUqYOgqoK Q+PKIeITJ5wTklNZciUNIheO1a OOHpT8q9LlOcIeY1BAoeX6Yk PDIrzbbuXz96oD7kGdKdAuZ1XJ ldM2MogeQ9ZNEplKAwPQajBQY9 Q47eo8V5MWOlQUVrFUG0zBU8 aI9ryXxdpirffNCiyXhlctMqnA bmQBruWMorF616WKAyzJjtGd20 iZCjpXxozaU9A9OfGilluEY+ PV55VUJvOQ83uSHlkSKmn8lqbU o1PeYyTGQzNBG1qGflOQbbc4Jw XSIjY82awLIbv1J7EUCtfMir fVUtUdPlbUP8cJ0cTQoposeyg8 ynkbugCgwxa5zlkl12hM00U19c IHdpZHRoPSIzMCUiIHZhbGln sp3knO8yNg2+DFDttMH0qPF0yT 6hVgCqSlD3YRxuL212CjYveRSu Nrsat3tqv2xuaGo6YzAtYZYj guZktZdcKYS2i7RiFd98V01oSO ldNOZqZKXnNYOiTWTljXjccm5v wP4cVl3+RV2nt9jvbi06jP44 dHI+MOHePHZ9bKgrMIvjODHswK 6yQApaUwM4DWUzAtUopO65uEDy RRziRn9eoBqwaEwyTN9oPMVd vfnzh888FaJdo9vfOUHbwZUkTL owQVN8A68nv1C5HQGwRLRtYII3 mGC1tB3ipPongkdqnFPypLav xfFjsRucTJyxTHbuY479LVYuwR tuSxChrUNaJ2muqtGWDY2sGbfm dGQ+CXJgZWI0tHvcVYjmQKHy eL5hYHLkP8f3GeDqHtM4IZehD1 RqvoF4XHKzjHAdQCUolEZJjF4v susoe1dpcebtRwGkXTVdGQe5 NXk3SMSnvBnbFtHbUWY9FiU6NY W9mSRgkZ0nbQjkrjwalO2sElz+ RklOOjwvdGQ+ILRxRIW2sBmb ROryKUCctE7fNNSoP2w1JvMgHr E8OExyA4UeudY0EJAaeDGmBNOj lHCZkD0zxjgqq8qabazhQmSw SQDyILe4GFb1VUPlcAdnVvJiGT S3FrV8TSR1wUXpcA2igBtsxiqn fB3mJmv+TVJOOjwvdGQ+PHRk WTY1iNwvCGdyXFIxcF3fUIPaU8 o1FcKaJbX8AXvwN6SitoP9ELYf tSHqUHZjsXTNzJ3pulbbe8oq jzxhXqQqRIEeQYa9OOt7UIVioV qwKuFsMCA9FqO9ASB3aXRscO8r jMgwfojyuE3tRzp+STY2TBN7 PX26FD52L7VpKstjnORgxXB+PH RhYmxlIHdpZHRoPScxMDAlJyBz dOpfUI8zEr4qOKDfNWJrbBhv cHNlOiBj (more content not included)... Normal [facility] CHEMISTRYOrdered By: SYSTEM SYSTEM on 03-12-2023 Troponin I.cardiac [Mass/Vol] 5.30 pg/mL Low 10.10 - 27.10 pg/mL [facility]isol Troponin I.cardiac [Mass/Vol] 6.40 pg/mL Low 10.10 - 27.10 pg/mL [facility] TSH Qn 0.65 m[IU]/L Normal 0.34 - 5.60 mcIU/mL [facility] Troponin I.cardiac [Mass/Vol] 6.00 pg/mL Low 10.10 - 27.10 pg/mL [facility] Anion gap [Moles/Vol] 12 mmol/L Normal 6 - 16 mEq/L [facility] Calcium [Mass/Vol] 8.8 mg/dL Low 8.9 - 11. 1 mg/dL [facility] Chloride [Moles/Vol] 105 mmol/L Normal 101 - 1 11 mmol/L [facility] CO2 [Moles/Vol] 25 mmol/L Normal 21 - 31 mmol/L [facility] Creatinine [Mass/Vol] 0.6 mg/dL Normal 0.5 - 1.3 mg/dL [facility] GFR/1.73 sq M.predicted among blacks MDRD (S/P/Bld) [Vol rate/Area] mL/min/1.73 m2 Normal >=59mL/min /1.73 m2 [facility] Chem S GFR/1.73 sq M.predicted among non-blacks MDRD (S/P/Bld) [Vol rate/Area] mL/min/1.73 m2 Normal >=59mL/min /1.73 m2 [facility] S Glucose [Mass/Vol] 105 mg/dL Normal 55 - 199 mg/dL [facility] Magnesium [Mass/Vol] 2.1 mg/dL Normal 1.3 - 2 .4 mg/dL [facility] Remisol Potassium [Moles/Vol] 3.5 mmol/L Normal 3.5 - 5.3 mmol/L [facility] Remisol Sodium [Moles/Vol] 138 mmol/L Normal 135 - 145 mmol/L [facility] Remisol Urea nitrogen [Mass/Vol] 10 mg/dL Normal 5 - 21 mg/dL [facility] Remisol Urea nitrogen/Creatinine [Mass ratio] 17 mg/mg Normal 10 - 20 [facility] Remisol CHEMISTRYOrdered By: Stacy Shortridge on 03-12-2023 Natriuretic peptide B (Bld) [Mass/Vol] 53 pg/mL Normal 5 - 80 pg/mL [facility] [employer] CHEMISTRYOrdered By: Lab ROP User on 03-12-2023 Glucose [Mass/Vol] 94 mg/dL Normal 55 - 99 mg/dL [facility] POC Subsection POC Device SN [id number] Invalid Interpretation Code [facility] POC Subsection POC User ID [id number] Invalid Interpretation Code [facility] POC Subsection POC Username KURTIS RAZA Invalid Interpretation Code [facility] POC Subsection COAGULATIONOrdered By: Sophia bonilla Shortridge on 03-12-2023 aPTT Coag (PPP) [Time] 45.4 s High 25.1 - 36.5 second(s) [facility] Auto Coag INR Coag (PPP) [Relative time] 1.2 {INR} Invalid Interpretation Code [facility] Auto Coag PT Coag (PPP) [Time] 13.0 s High 9.4 - 1 2.5 second(s) [facility] Auto Coag HEMATOLOGYOrdered By: SYSTEM SYSTEM on 03-12-2023 Basophils/100 WBC (Bld) 0.4 % Normal 0.0 - 2.0 % [facility] Basophils/Leukocytes Auto (Bld) [Pure # fraction] 0.0 E9/L Normal 0.0 - 0.2 E9/L [facility] Eosinophils/100 WBC (Bld) 2.7 % Normal 0.0 - 8.0 % [facility] Eosinophils/Leukocyte s Auto (Bld) [Pure # fraction] 0.3 E9/L Normal 0.0 - 0.5 E9/L [facility] Lymphocytes/100 WBC (Bld) 29.1 % Normal 14.0 - 50.0 % [facility] Lymphocytes/Leukocyte s Auto (Bld) [Pure # fraction] 3.1 E9/L Normal 1.0 - 4.0 E9/L [facility] Monocytes/100 WBC (Bld) 5.9 % Normal 4.0 - 14.0 % [facility] Monocytes/Leukocytes Auto (Bld) [Pure # fraction] 0.6 E9/L Normal 0.2 - 1.0 E9/L [facility] Neutrophils/100 WBC (Bld) 61.9 % Normal 36.0 - 75.0 % [facility] Neutrophils/Leukocyte s Auto (Bld) [Pure # fraction] 6.5 E9/L Normal 2.0 - 7.5 E9/L [facility] HEMATOLOGYOrdered By: Rosanne Deluna on 03-12-2023 Erythrocyte distribution width (RBC) [Ratio] 13.4 % Normal 10.9 - 14.2 % [facility] Hematocrit (Bld) [Volume fraction] 39.7 % Normal 34.0 - 46.0 % [facility] Hemoglobin (Bld) [Mass/Vol] 13.4 g/dL Normal 12.0 - 16.0 gm/dL [facility] MCH (RBC) [Entitic mass] 31.3 pg Normal 27.0 - 34.0 pg [facility] MCHC (RBC) [Mass/Vol] 33.8 g/dL Normal 31.4 - 36.0 gm/dL [facility] MCV (RBC) [Entitic vol] 92.7 fL Normal 80.0 - 100.0 fL [facility] Platelet mean volume (Bld) [Entitic vol] 7.8 fL Normal 6.4 - 10.8 fL [facility] Platelets (Bld) [#/Vol] 288.0 E9/L Normal 150.0 - 500.0 E9/L [facility] RBC (Bld) [#/Vol] 4.3 E12/L Normal 4.3 - 5.9 E12/L [facility] WBC corrected for nucl RBC Auto (Bld) [#/Vol] 10.5 E9/L Normal 4.0 - 11.0 E9/L [facility] Basic Metabolic Panelon 11-25 Calcium [Mass/Vol] 9.6807492 mg/dL Normal 8.2-10 .2 mg/dL [facility] [employer] Other CO2 [Moles/Vol] 27.41442092 mmol/L Normal 22.0-3 0.0 mmol/L [facility] [employer] Other Creatinine [Mass/Vol] 0.26566547 mg/dL Normal 0. 44-1.03 mg/dL [facility] [employer] Other Potassium [Moles/Vol] 4.87052721 mmol/L Normal 3 .5-5.1 mmol/L [facility] [employer] Other Basic Metabolic Panel > 60 [facility] [employer] Other Creatinine and Glomerular fi ltration rate.predicted panel (S/P/Bld)Ordered By: Gina Gonzalez on 12-08-2022 Creatinine [Mass/Vol] 0.63 mg/dL 0.44-1.03 [facility] Estimated glomerular filtrat ion rate (GFR) non- AmericanOrdered By: Gina Gonzalez on 12-08-2022 GFR/1.73 sq M.predicted among non-blacks MDRD (S/P/Bld) [Vol rate/Area] > 60 mL/Min [facility] No Panel InformationOrdered By: Gina Gonzalez on 12-08-2022 Estimated GFR () > 60 mL/Min [facility] Comment on above: GFR estimated refere nce range: According to KDOQI guidelines, <60 ml/min/1.73m2 is sufficient to diagnose a patient with chronic kidney disease. Pharmacy Creatinine Clearance (Chem N/A [facility] Serum or plasma anion gap de terminationOrdered By: Gina Gonzalez on 12-08-2022 Anion gap [Moles/Vol] 12.0 mmol/L 6.0-15.0 [facility] Serum or plasma calcium libia urement (mass/volume)Ordered By: Gina Gonzalez on 12-08-2022 Calcium [Mass/Vol] 9.2 mg/dL 8.2-10.2 [facility] Serum or plasma chloride qi surement (moles/volume)Ordered By: Gina Gonzalez on 12-08-2022 Chloride [Moles/Vol] 104 mmol/L Normal 95-114 mmol/L [facility] Serum or plasma glucose libia urement (mass/volume)Ordered By: Gina Gonzalez on 12-08-2022 Glucose [Mass/Vol] 91 mg/dL Normal 70-100 mg/dL [facility] Comment on above: ADA recommended refe rence rangeRandom Glucose Reference Range is dependent on time and content of last meal. Glucose of more than 200 mg/dL in a nonstressed, ambulatory subject supports the diagnosis of Diabetes Mellitus. Serum or plasma potassium me asurement (moles/volume)Ordered By: Gina Gonzalez on 12-08-2022 Potassium [Moles/Vol] 4.0 mmol/L 3.5-5.1 [facility] Serum or plasma sodium measu rement (moles/volume)Ordered By: Gina Gonzalez on 12-08-2022 Sodium [Moles/Vol] 139 mmol/L Normal 136-146 mmol/L [facility] Serum or plasma total carbon dioxide measurement (moles/volume)Ordered By: Gina Gonzalez on 12-08-2022 CO2 [Moles/Vol] 27.0 mmol/L 22.0-30.0 [facility] Serum or plasma urea nitroge n measurement (mass/volume)Ordered By: Gina Gonzalez on 12-08-2022 Urea nitrogen [Mass/Vol] 10 mg/dL Normal 9-23 mg/dL [facility] Vitamin R89Srjtcts By: Garry Gonzalez on 12-08-2022 Cobalamin (Vitamin B12) [Mass/Vol] 829 pg/mL Normal 180-914 pg/mL [facility] SARS-CoV-2 (COVID-19) RNA NA A+probe Ql (Resp)on 08-07-2022 SARS-CoV-2 (COVID-19) RNA FRANK+probe Ql (Unsp spec) Positive [employer] Other Albumin [Mass/volume] in Ser um or PlasmaOrdered By: Kurtis Tyler on 07-09-2022 Albumin [Mass/Vol] 3.8 g/dL 3.2-5.5 [facility] Basophils Auto (Bld) [#/Vol] Ordered By: Kurtis Tyler on 07-09-2022 Basophils (Bld) [#/Vol] 0.0 10*3/uL 0.0-0.2 [facility] Basophils/100 WBC Auto (Bld) Ordered By: Kurtis Tyler on 07-09-2022 Basophils/100 WBC (Bld) 0.6 % . [facility] Blood hemoglobin measurement (mass/volume)Ordered By: Kurtis Tyler on 07-09-2022 Hemoglobin (Bld) [Mass/Vol] 12.6 g/dL 11.8-15.4 [facility] Blood leukocytes automated c ount (number/volume)Ordered By: Kurtis Tyler on 07-09-2022 WBC (Bld) [#/Vol] 7.5 10*3/uL 4.5-11.0 [facility] Cholesterol [Mass/volume] in Serum or PlasmaOrdered By: Kurtis Tyler on 07-09-2022 Cholesterol [Mass/Vol] 179 mg/dL 140-200 [facility] Comment on above: Chol less than 200 m g/dl low risk Chol 201-239 mg/dl borderline risk Chol 240 mg/dl and greater high risk Chol less than 200 m g/dl low riskChol 201-239 mg/dl borderline riskChol 240 mg/dl and greater high risk Cholesterol in LDL Calc [Mas s/Vol]Ordered By: Kurtis Tyler on 07-09-2022 Cholesterol in LDL [Mass/Vol] 97 mg/dL 0-100 [facility] Comment on above: LDL ATP III CLASSIFI CATION LDL less than 100 mg/dL Optimal LDL 100-129 mg/dL Near or above optimal LDL 130-159 mg/dL Borderline high LDL 160-189 mg/dL High LDL greater than 189 mg/dL Very high LDL ATP III CLASSIFI CATIONLDL less than 100 mg/dL OptimalLDL 100-129 mg/dL Near or above optimalLDL 130-159 mg/dL Borderline highLDL 160-189 mg/dL HighLDL greater than 189 mg/dL Very high Cholesterol in VLDL Calc [Ma ss/Vol]Ordered By: Kurtis Tyler on 07-09-2022 Cholesterol in VLDL [Mass/Vol] 18 mg/dL [facility] Creatinine and Glomerular fi ltration rate.predicted panel (S/P/Bld)Ordered By: Kurtis Tyler on 07-09-2022 Creatinine [Mass/Vol] 0.76 mg/dL 0.44-1.03 [facility] Eosinophils Auto (Bld) [#/Vo l]Ordered By: Kurtis Tyler on 07-09-2022 Eosinophils (Bld) [#/Vol] 0.8 10*3/uL 0.0-0.45 [facility] Eosinophils/100 WBC Auto (Bl d)Ordered By: Kurtis Tyler on 07-09-2022 Eosinophils/100 WBC (Bld) 10.6 % . [facility] Erythrocyte distribution wid th Auto (RBC) [Ratio]Ordered By: Kurtis Tyler on 07-09-2022 Erythrocyte distribution width (RBC) [Ratio] 13.8 % 11.9-15.3 [facility] Estimated glomerular filtrat ion rate (GFR) non- AmericanOrdered By: Kurtis Tyler on 07-09-2022 GFR/1.73 sq M.predicted among non-blacks MDRD (S/P/Bld) [Vol rate/Area] > 60 mL/Min [facility] Globulin Calc (S) [Mass/Vol] Ordered By: Kurtis Tyler on 07-09-2022 Globulin (S) [Mass/Vol] 1.7 g/dL [facility] Hematocrit Auto (Bld) [Volum e fraction]Ordered By: Kurtis Tyler on 07-09-2022 Hematocrit (Bld) [Volume fraction] 37.6 % 34.0-46.4 [facility] Laboratory - Chemistry and C hemistry - challengeOrdered By: Kurtis Tyler on 07-09-2022 Glucose [Mass/Vol] 89 mg/dL 70-100 [facility] - Hematology and Cell countsOrdered By: Kurtis Tyler on 07-09-2022 Nucleated RBC/100 WBC (Bld) [Ratio] 0.1 % 0-0.5 [facility] Lymphocytes Auto (Bld) [#/Vo l]Ordered By: Kurtis Tyler on 07-09-2022 Lymphocytes (Bld) [#/Vol] 2.0 10*3/uL 1.00-4.8 [facility] Lymphocytes/100 WBC Auto (Bl d)Ordered By: Kurtis Tyler on 07-09-2022 Lymphocytes/100 WBC (Bld) 26.0 % . [facility] MCH Auto (RBC) [Entitic mass ]Ordered By: Kurtis Tyler on 07-09-2022 MCH (RBC) [Entitic mass] 31.3 pg 24.7-34.3 [facility] MCHC Auto (RBC) [Mass/Vol]Or dered By: Kurtis Tyler on 07-09-2022 MCHC (RBC) [Mass/Vol] 33.4 g/dL 32.0-35.0 [facility] MCV Auto (RBC) [Entitic vol] Ordered By: Kurtis Tyler on 07-09-2022 MCV (RBC) [Entitic vol] 93.8 fL 80-100 [facility] Monocyte %Ordered By: Kurtis Tyler on 07-09-2022 Monocyte % 90 mg/dL 35-149 [facility] Comment on above: TRIG ATP III CLASSIF ICATION TRIG less than 150 mg/dL Normal TRIG 150-199 mg/dL Borderline high TRIG 200-500 mg/dL High TRIG greater than 500 mg/dL Very high Standard traceable to the Center for Disease Conrtrol and Prevention (CDC) test method. TRIG ATP III CLASSIF ICATIONTRIG less than 150 mg/dL NormalTRIG 150-199 mg/dL Borderline highTRIG 200-500 mg/dL High TRIG greater than 500 mg/dL Very highStandard traceable to the Center for Disease Conrtrol and Prevention (CDC) test method. Monocytes Auto (Bld) [#/Vol] Ordered By: Kurtis Tyler on 07-09-2022 Monocytes (Bld) [#/Vol] 0.5 10*3/uL 0.0-0.8 [facility] Monocytes/100 WBC Auto (Bld) Ordered By: Kurtis Tyler on 07-09-2022 Monocytes/100 WBC (Bld) 6.1 % . [facility] Neutrophils Auto (Bld) [#/Vo l]Ordered By: Kurtis Tyler on 07-09-2022 Neutrophils (Bld) [#/Vol] 4.3 10*3/uL 1.8-7.7 [facility] Neutrophils/100 WBC Auto (Bl d)Ordered By: Kurtis Tyler on 07-09-2022 Neutrophils/100 WBC (Bld) 56.7 % . [facility] No Panel InformationOrdered By: Kurtis Tyler on 07-09-2022 Estimated GFR () > 60 mL/Min [facility] Comment on above: GFR estimated refere nce range: According to KDOQI guidelines, <60 ml/min/1.73m2 is sufficient to diagnose a patient with chronic kidney disease. Nicotine Metabolite Negative Cutoff=25 [facility] Comment on above: Performed at: [facility] [address] [id number] [employer] Sorting: Leobardo Ernandez MD, Phone: [phone] Performed at: [facility] [address] [id number] Director: Leobardo Ernandez MD, Phone: [phone] Pharmacy Creatinine Clearance (Chem N/A [facility] Platelet mean volume Auto (B ld) [Entitic vol]Ordered By: Kurtis Tyler on 07-09-2022 Platelet mean volume (Bld) [Entitic vol] 8.7 fL 6.3-10.7 [facility] Platelets Auto (Bld) [#/Vol] Ordered By: Kurtis Tyler on 07-09-2022 Platelets (Bld) [#/Vol] 267 10*3/uL 150-450 [facility] Protein [Mass/volume] in Ser um or PlasmaOrdered By: Kurtis Tyler on 07-09-2022 Protein [Mass/Vol] 5.5 g/dL 6.1-7.9 [facility] RBC Auto (Bld) [#/Vol]Ordere d By: Kurtis Tyler on 07-09-2022 RBC (Bld) [#/Vol] 4.01 10*6/uL 3.60-5.00 [facility] Serum or plasma alanine escobar otransferase measurement without P-5'-P (enzymatic activiOrdered By: Kurtis Tyler on 07-09-2022 ALT No additional P-5'-P [Catalytic activity/Vol] 19 U/L 10-60 [facility] Serum or plasma albumin/glob ulin mass ratioOrdered By: Kurtis Tyler on 07-09-2022 Albumin/Globulin [Mass ratio] 2.2 {ratio} [facility] Serum or plasma alkaline leni sphatase measurement (enzymatic activity/volume)Ordered By: Kurtis Tyler on 07-09-2022 ALP [Catalytic activity/Vol] 77 U/L 32-92 [facility] Serum or plasma aspartate am inotransferase measurement (enzymatic activity/volume)Ordered By: Kurtis Tyler on 07-09-2022 AST [Catalytic activity/Vol] 19 U/L 10-42 [facility] Serum or plasma calcium libia urement (mass/volume)Ordered By: Kurtis Tyler on 07-09-2022 Calcium [Mass/Vol] 9.2 mg/dL 8.2-10.2 [facility] Serum or plasma chloride qi surement (moles/volume)Ordered By: Kurtis Tyler on 07-09-2022 Chloride [Moles/Vol] 103 mmol/L 95-114 [facility] Serum or plasma high density lipoprotein (HDL) cholesterol measurementOrdered By: Kurtis Tyler on 07-09-2022 Cholesterol in HDL [Mass/Vol] 64 mg/dL 35-85 [facility] Comment on above: HDL CHOL ATP-III CLA SSIFICATION Cardiovascular Risk HDL > or equal to 60 mg/dL LOW HDL < 40 mg/dL HIGH HDL CHOL ATP-III CLA SSIFICATION Cardiovascular RiskHDL > or equal to 60 mg/dL LOWHDL < 40 mg/dL HIGH Serum or plasma potassium me asurement (moles/volume)Ordered By: Kurtis Tyler on 07-09-2022 Potassium [Moles/Vol] 3.8 mmol/L 3.5-5.1 [facility] Serum or plasma sodium measu rement (moles/volume)Ordered By: Kurtis Tyler on 07-09-2022 Sodium [Moles/Vol] 139 mmol/L 136-146 [facility] Serum or plasma total biliru bin measurement (mass/volume)Ordered By: Kurtis Tyler on 07-09-2022 Bilirubin [Mass/Vol] 0.5 mg/dL 0.3-1.2 [facility] Serum or plasma total carbon dioxide measurement (moles/volume)Ordered By: Kurtis Tyler on 07-09-2022 CO2 [Moles/Vol] 28.4 mmol/L 22.0-30.0 [facility] Serum or plasma total choles terol/high density lipoprotein (HDL) cholesterol mass ratOrdered By: Kurtis Tyler on 07-09-2022 Cholesterol.total/Cho lesterol in HDL [Mass ratio] 2.8 {ratio} <5.0 [facility] Serum or plasma urea nitroge n measurement (mass/volume)Ordered By: Kurtis Tyler on 07-09-2022 Urea nitrogen [Mass/Vol] 16 mg/dL 9- [facility] TSH DL <= 0.005 mIU/L QnOrde red By: Kurtis Tyler on 07-09-2022 TSH Qn 1.46 m[IU]/L 0.45-5.33 [facility] Cholesterol [Mass/volume] in Serum or PlasmaOrdered By: Micheal Puga on 05-05-2022 Cholesterol [Mass/Vol] 197 mg/dL 140-200 [facility] Comment on above: Chol less than 200 m g/dl low risk Chol 201-239 mg/dl borderline risk Chol 240 mg/dl and greater high risk Cholesterol in LDL Calc [Mas s/Vol]Ordered By: Micheal Puga on 05-05-2022 Cholesterol in LDL [Mass/Vol] 91 mg/dL 0-100 [facility] Comment on above: LDL ATP III CLASSIFI CATION LDL less than 100 mg/dL Optimal LDL 100-129 mg/dL Near or above optimal LDL 130-159 mg/dL Borderline high LDL 160-189 mg/dL High LDL greater than 189 mg/dL Very high Cholesterol in VLDL Calc [Ma ss/Vol]Ordered By: Micheal Puga on 05-05-2022 Cholesterol in VLDL [Mass/Vol] 20 mg/dL [facility] Serum or plasma high density lipoprotein (HDL) cholesterol measurementOrdered By: Micheal Puga on 05-05-2022 Cholesterol in HDL [Mass/Vol] 85 mg/dL 35-85 [facility] Comment on above: HDL CHOL ATP-III CLA SSIFICATION Cardiovascular Risk HDL > or equal to 60 mg/dL LOW HDL < 40 mg/dL HIGH Serum or plasma total choles terol/high density lipoprotein (HDL) cholesterol mass ratOrdered By: Micheal Puga on 05-05-2022 Cholesterol.total/Cho lesterol in HDL [Mass ratio] 2.3 {ratio} <5.0 [facility] Triglyceride [Mass/volume] i n Serum or PlasmaOrdered By: Micheal Puga on 05-05-2022 Triglyceride [Mass/Vol] 103 mg/dL 35-149 [facility] Comment on above: TRIG ATP III CLASSIF ICATION TRIG less than 150 mg/dL Normal TRIG 150-199 mg/dL Borderline high TRIG 200-500 mg/dL High TRIG greater than 500 mg/dL Very high Standard traceable to the Center for Disease Conrtrol and Prevention (CDC) test method. CHEMISTRYOrdered By: SYSTEM SYSTEM on 04-27-2022 Troponin I.cardiac [Mass/Vol] 30.70 pg/mL High 10.10 - 27.10 pg/mL [facility] Anion gap [Moles/Vol] 14 mmol/L Normal 6 - 16 mEq/L [facility] Calcium [Mass/Vol] 9.2 mg/dL Normal 8.9 - 11. 1 mg/dL [facility] Chloride [Moles/Vol] 108 mmol/L Normal 101 - 1 11 mmol/L [facility] Remisol CO2 [Moles/Vol] 23 mmol/L Normal 21 - 31 mmol/L [facility] Creatinine [Mass/Vol] 0.7 mg/dL Normal 0.5 - 1.3 mg/dL [facility] GFR/1.73 sq M.predicted among blacks MDRD (S/P/Bld) [Vol rate/Area] mL/min/1.73 m2 Normal >=59mL/min /1.73 m2 [facility] Chem S GFR/1.73 sq M.predicted among non-blacks MDRD (S/P/Bld) [Vol rate/Area] mL/min/1.73 m2 Normal >=59mL/min /1.73 m2 [facility] Chem S Glucose [Mass/Vol] 105 mg/dL Normal 55 - 199 mg/dL [facility] Remisol Magnesium [Mass/Vol] 2.2 mg/dL Normal 1.3 - 2 .4 mg/dL [facility] Remisol Potassium [Moles/Vol] 3.9 mmol/L Normal 3.5 - 5.3 mmol/L [facility] Remisol Sodium [Moles/Vol] 141 mmol/L Normal 135 - 145 mmol/L [facility] Remisol Troponin I.cardiac [Mass/Vol] 13.20 pg/mL Normal 10.10 - 27.10 pg/mL [facility] Remisol Urea nitrogen [Mass/Vol] 13 mg/dL Normal 5 - 21 mg/dL [facility] Remisol Urea nitrogen/Creatinine [Mass ratio] 19 mg/mg Normal 10 - 20 [facility] Remisol COAGULATIONOrdered By: Heraclio Adair on 04-27-2022 aPTT Coag (PPP) [Time] 41.1 s High 25.1 - 36.5 second(s) [facility] Auto Coag INR Coag (PPP) [Relative time] 1.0 {INR} Invalid Interpretation Code [facility] Auto Coag PT Coag (PPP) [Time] 11.9 s Normal 10.2 - 12.9 second(s) [facility] Auto Coag HEMATOLOGYOrdered By: SYSTEM SYSTEM on 04-27-2022 Basophils/100 WBC (Bld) 0.5 % Normal 0.0 - 2.0 % [facility] HemeAutoSS Basophils/Leukocytes Auto (Bld) [Pure # fraction] 0.0 E9/L Normal 0.0 - 0.2 E9/L [facility]eAutoSS Eosinophils/100 WBC (Bld) 3.9 % Normal 0.0 - 8.0 % [facility] HemeAutoSS Eosinophils/Leukocyte s Auto (Bld) [Pure # fraction] 0.4 E9/L Normal 0.0 - 0.5 E9/L [facility]eAutoSS Lymphocytes/100 WBC (Bld) 31.2 % Normal 14.0 - 50.0 % [facility] HemeAutoSS Lymphocytes/Leukocyte s Auto (Bld) [Pure # fraction] 3.3 E9/L Normal 1.0 - 4.0 E9/L [facility]eAutoSS Monocytes/100 WBC (Bld) 5.9 % Normal 4.0 - 14.0 % [facility] HemeAutoSS Monocytes/Leukocytes Auto (Bld) [Pure # fraction] 0.6 E9/L Normal 0.2 - 1.0 E9/L [facility]eAutoSS Neutrophils/100 WBC (Bld) 58.5 % Normal 36.0 - 75.0 % [facility]eAutoSS Neutrophils/Leukocyte s Auto (Bld) [Pure # fraction] 6.2 E9/L Normal 2.0 - 7.5 E9/L [facility]eAuto[facility] HEMATOLOGYOrdered By: Heraclio Adair on 04-27-2022 Erythrocyte distribution width (RBC) [Ratio] 13.5 % Normal 10.9 - 14.2 % [facility]eAuto[facility] Hematocrit (Bld) [Volume fraction] 42.9 % Normal 34.0 - 46.0 % [facility]eAuto[facility] Hemoglobin (Bld) [Mass/Vol] 14.8 g/dL Normal 12.0 - 16.0 gm/dL [facility] MCH (RBC) [Entitic mass] 31.9 pg Normal 27.0 - 34.0 pg [facility] MCHC (RBC) [Mass/Vol] 34.4 g/dL Normal 31.4 - 36.0 gm/dL [facility] MCV (RBC) [Entitic vol] 92.9 fL Normal 80.0 - 100.0 fL [facility]eAuto[facility] Platelet mean volume (Bld) [Entitic vol] 8.5 fL Normal 6.4 - 10.8 fL [facility]eAuto[facility] Platelets (Bld) [#/Vol] 274.0 E9/L Normal 150.0 - 500.0 E9/L [facility]eAuto[facility] RBC (Bld) [#/Vol] 4.6 E12/L Normal 4.3 - 5.9 E12/L [facility] WBC corrected for nucl RBC Auto (Bld) [#/Vol] 10.6 E9/L Normal 4.0 - 11.0 E9/L [facility]eAutoSS PAP ACOG PANEL 2: 30 to 65on 04-17-2022 . . Normal [facility] Comment on above: Result Comment: Perf ormed at: WB Performed By: #### [id number] #### [facility] [address] [place] [address] Dr. Bonny Wilkerson Age Gdln ACOG Testing 30-65 Normal [facility] Comment on above: Performed By: #### [id number] #### [facility] [address] [address] [address] Bonny Wilkerson DIAGNOSIS: Comment Normal [facility] Comment on above: Result Comment: NEGA TIVE FOR INTRAEPITHELIAL LESION OR MALIGNANCY. Performed at: WB Performed By: #### [id number] #### [facility] [address] [place] [address] Dr. Bonny Wilkerson HPV Aptima Negative Normal Negative [facility] Comment on above: Result Comment: This nucleic acid amplification test detects fourteen high-risk HPV types (16,18,31,33,35,39,45,51,52,56,58,59,66,68) without differentiation. Performed at: =G Performed By: #### [id number] #### [facility] [address] [place] [address] Dr. Bonny Wilkerson Methodology: Comment Normal [facility] Comment on above: Result Comment: This liquid based ThinPrep(R) pap test was screened with the use of an image guided system. Performed at: WB Performed By: #### [id number] #### [facility] [address] [place] [address] Dr. Bonny Wilkerson Note: Comment Normal [facility] Comment on above: Result Comment: The Pap smear is a screening test designed to aid in the detection of premalignant and malignant conditions of the uterine cervix. It is not a diagnostic procedure and should not be used as the sole means of detecting cervical cancer. Both false-positive and false-negative reports do occur. . Performed at: WB Performed By: #### [id number] #### [facility] [address] [address] [address] Bonny Wilkerson Performed by: Comment Normal [facility] Comment on above: Result Comment: Howie Conrad, [employer] Duty Manager (ASCP) Performed at: WB Performed By: #### [id number] #### [facility] [address] [place] [address] Dr. Bonny Wilkerson Specimen adequacy: Comment Normal [facility] Comment on above: Result Comment: Sati sfactory for evaluation. Performed at: WB Performed By: #### [id number] #### [facility] [address] [place] [address] Dr. Bonny Wilkerson Vital Signs Date Time Vital Sign Value Performing Clinician Facility 06-30-2025 08:28-0400 Body height 167.64 cm Delroy Hernandez MD Work Phone: [facility] 06-30-2025 08:28-0400 Body mass index (BMI) [Ratio] 42.1 kg/m2 Delroy Hernandez MD Work Phone: [facility] 06-30-2025 08:28-0400 Body weight 118.38 kg Delroy Hernandez MD Work Phone: [facility] 06-30-2025 08:28-0400 Diastolic blood pressure 77 mm[Hg] Delroy Hernandez MD Work Phone: [facility] 06-30-2025 08:28-0400 Heart rate 58 /min Delroy Hernandez MD Work Phone: [facility] 06-30-2025 08:28-0400 Systolic blood pressure 114 mm[Hg] Delroy Hernandez MD Work Phone: [facility] 05-31-2025 13:13-0400 Body mass index (BMI) [Ratio] 41.97 kg/m2 Alisha Nataprawira DO Work Phone: [facility] 05-31-2025 13:13-0400 Body weight 117.94 kg Alisha Nataprawira DO Work Phone: [facility] 05-31-2025 13:13-0400 Diastolic blood pressure 80 mm[Hg] Alisha Nataprawira DO Work Phone: [facility] 05-31-2025 13:13-0400 Systolic blood pressure 138 mm[Hg] Alisha Nataprawira DO Work Phone: [facility] 03-16-2025 13:04-0400 Body height 167.64 cm Delroy Hernandez MD Work Phone: [facility] 03-16-2025 13:04-0400 Body mass index (BMI) [Ratio] 41.8 kg/m2 Delroy Hernandez MD Work Phone: [facility] 03-16-2025 13:04-0400 Body weight 117.48 kg Delroy Hernandez MD Work Phone: [facility] 03-16-2025 13:04-0400 Diastolic blood pressure 68 mm[Hg] Delroy Hernandez MD Work Phone: [facility] 03-16-2025 13:04-0400 Heart rate 68 /min Delroy Hernandez MD Work Phone: [facility] 03-16-2025 13:04-0400 Respiratory rate 18 /min Delroy Hernandez MD Work Phone: [facility] 03-16-2025 13:04-0400 SaO2% (BldA) [Mass fraction] 98 % Delroy Hernandez MD Work Phone: [facility] 03-16-2025 13:04-0400 Systolic blood pressure 132 mm[Hg] Delroy Hernandez MD Work Phone: [facility] 02-22-2025 08:43-0400 Diastolic blood pressure 66 mm[Hg] Delroy Hernandez MD Work Phone: [facility] 02-22-2025 08:43-0400 Heart rate 61 /min Delroy Hernandez MD Work Phone: [facility] 02-22-2025 08:43-0400 Respiratory rate 16 /min Delroy Hernandez MD Work Phone: [facility] 02-22-2025 08:43-0400 SaO2% (BldA) [Mass fraction] 98 % Delroy Hernandez MD Work Phone: [facility] 02-22-2025 08:43-0400 Systolic blood pressure 108 mm[Hg] Delroy Hernandez MD Work Phone: [facility] 02-22-2025 07:26-0400 Body height 168.91 cm Delroy Hernandez MD Work Phone: [facility] 02-22-2025 07:26-0400 Body weight 113.39 kg Delroy Hernandez MD Work Phone: [facility] 09-18-2024 13:05-0400 Body height 167.64 cm MD Delroy Hernandez Work Phone: [facility] 09-18-2024 13:05-0400 Body mass index (BMI) [Ratio] 41.8 kg/m2 MD Delroy Hernandez Work Phone: [facility] 09-18-2024 13:05-0400 Body weight 117.48 kg MD Delroy Hernandez Work Phone: [facility] 09-18-2024 13:05-0400 Diastolic blood pressure 82 mm[Hg] MD Delroy Hernandez Work Phone: [facility] 09-18-2024 13:05-0400 Heart rate 68 /min MD Delroy Hernandez Work Phone: [facility] 09-18-2024 13:05-0400 Systolic blood pressure 116 mm[Hg] MD Delroy Hernandez Work Phone: [facility] 09-02-2024 08:36-0400 Body height 167.64 cm MD Delroy Hernandez Work Phone: [facility] 09-02-2024 08:36-0400 Body mass index (BMI) [Ratio] 41.6 kg/m2 MD Delroy Hernandez Work Phone: [facility] 09-02-2024 08:36-0400 Body weight 117.02 kg MD Delroy Hernandez Work Phone: [facility] 09-02-2024 08:36-0400 Diastolic blood pressure 86 mm[Hg] MD Delroy Hernandez Work Phone: [facility] 09-02-2024 08:36-0400 Heart rate 78 /min MD Delroy Hernandez Work Phone: [facility] 09-02-2024 08:36-0400 Respiratory rate 18 /min MD Delroy Hernandez Work Phone: [facility] 09-02-2024 08:36-0400 SaO2% (BldA) [Mass fraction] 96 % MD Delroy Hernandez Work Phone: [facility] 09-02-2024 08:36-0400 Systolic blood pressure 126 mm[Hg] MD Delroy Hernandez Work Phone: [facility] 06-12-2024 08:21-0400 Body height 167.64 cm MD Delroy Hernandez Work Phone: [facility] 06-12-2024 08:21-0400 Body mass index (BMI) [Ratio] 41 kg/m2 MD Delroy Hernandez Work Phone: [facility] 06-12-2024 08:21-0400 Body weight 115.38 kg MD Delroy Hernandez Work Phone: [facility] 06-05-2024 16:22-0400 Body height 167.64 cm MD Delroy Hernandez Work Phone: [facility] 06-05-2024 16:22-0400 Body mass index (BMI) [Ratio] 40.3 kg/m2 MD Delroy Hernandez Work Phone: [facility] 06-05-2024 16:22-0400 Body temperature 98 [degF] MD Delroy Hernandez Work Phone: [facility] 06-05-2024 16:22-0400 Body weight 113.39 kg MD Delroy Hernandez Work Phone: [facility] 06-05-2024 16:22-0400 Diastolic blood pressure 77 mm[Hg] MD Delroy Hernandez Work Phone: [facility] 06-05-2024 16:22-0400 Heart rate 57 /min MD Delroy Hernandez Work Phone: [facility] 06-05-2024 16:22-0400 SaO2% (BldA) [Mass fraction] 99 % MD Delroy Hernandez Work Phone: [facility] 06-05-2024 16:22-0400 Systolic blood pressure 123 mm[Hg] MD Delroy Hernandez Work Phone: [facility] 05-26-2024 15:21-0400 Body height 167.64 cm MD Delroy Hernandez Work Phone: [facility] 05-26-2024 15:21-0400 Body mass index (BMI) [Ratio] 40.8 kg/m2 MD Delroy Hernandez Work Phone: [facility] 05-26-2024 15:21-0400 Body weight 114.75 kg MD Delroy Hernandez Work Phone: [facility] 05-26-2024 15:21-0400 Diastolic blood pressure 77 mm[Hg] MD Delroy Hernandez Work Phone: [facility] 05-26-2024 15:21-0400 Heart rate 60 /min MD Delroy Hernandez Work Phone: [facility] 05-26-2024 15:21-0400 Systolic blood pressure 114 mm[Hg] MD Delroy Hernandez Work Phone: [facility] 04-28-2024 11:29-0400 Body height 167.64 cm MD Delroy Hernandez Work Phone: [facility] 04-28-2024 11:29-0400 Body mass index (BMI) [Ratio] 40.6 kg/m2 MD Delroy Hernandez Work Phone: [facility] 04-28-2024 11:29-0400 Body weight 114.3 kg MD Delroy Hernandez Work Phone: [facility] 04-28-2024 11:29-0400 Diastolic blood pressure 64 mm[Hg] MD Delroy Hernandez Work Phone: [facility] 04-28-2024 11:29-0400 Heart rate 66 /min MD Delroy Hernandez Work Phone: [facility] 04-28-2024 11:29-0400 Respiratory rate 18 /min MD Delroy Hernandez Work Phone: [facility] 04-28-2024 11:29-0400 SaO2% (BldA) [Mass fraction] 98 % MD Delroy Hernandez Work Phone: [facility] 04-28-2024 11:29-0400 Systolic blood pressure 122 mm[Hg] MD Delroy Hernandez Work Phone: [facility] 03-19-2024 09:05-0400 Body height 167.64 cm MD Delroy Hernandez Work Phone: [facility] 03-19-2024 09:05-0400 Body mass index (BMI) [Ratio] 41.3 kg/m2 MD Delroy Hernandez Work Phone: [facility] 03-19-2024 09:05-0400 Body weight 116.11 kg MD Delroy Hernandez Work Phone: [facility] 03-19-2024 09:05-0400 Diastolic blood pressure 84 mm[Hg] MD Delroy Hernandez Work Phone: [facility] 03-19-2024 09:05-0400 Heart rate 62 /min MD Delroy Hernandez Work Phone: [facility] 03-19-2024 09:05-0400 Respiratory rate 18 /min MD Delroy Hernandez Work Phone: [facility] 03-19-2024 09:05-0400 SaO2% (BldA) [Mass fraction] 98 % MD Delroy Hernandez Work Phone: [facility] 03-19-2024 09:05-0400 Systolic blood pressure 132 mm[Hg] MD Delroy Hernandez Work Phone: [facility] 10-29-2023 15:42-0500 Blood Pressure Location Micheal PUGA [facility] 10-29-2023 15:42-0500 Diastolic blood pressure 80 mm[Hg] Micheal PUGA [facility] 10-29-2023 15:42-0500 Heart rate 65 /min Micheal PUGA [facility] 10-29-2023 15:42-0500 SaO2% (BldA) [Mass fraction] 99 % Micheal PUGA [facility] 10-29-2023 15:42-0500 Systolic blood pressure 125 mm[Hg] Micheal PUGA [facility] 10-02-2023 09:26-0500 Blood Pressure Location Darrick Castillo [facility] 10-02-2023 09:26-0500 Diastolic blood pressure 81 mm[Hg] Darrick Singhm [facility] 10-02-2023 09:26-0500 Heart rate 66 /min Darrick Singhm [facility] 10-02-2023 09:26-0500 SaO2% (BldA) [Mass fraction] 99 % Wendyhar Anna [facility] 10-02-2023 09:26-0500 Systolic blood pressure 127 mm[Hg] Darrick Singhm [facility] 10-01-2023 14:30-0500 Body height 167.64 cm Delroy Hernandez Other [employer] Other 10-01-2023 14:30-0500 Body mass index (BMI) [Ratio] 41.64 kg/m2 Delroy Hernandez Other [employer] Other 10-01-2023 14:30-0500 Body temperature 96.7 [degF] Delroy Hernandez Other [employer] Other 10-01-2023 14:30-0500 Body weight 117.03 kg Delroy Hernandez Other [facility] [employer] Other 10-01-2023 14:30-0500 Diastolic blood pressure 90 mm[Hg] Delroy Hernandez Other [facility] Other 10-01-2023 14:30-0500 Systolic blood pressure 137 mm[Hg] Delroy Hernandez Other [facility] Other 09-23-2023 07:06-0400 Diastolic blood pressure 93 mm[Hg] Micheal PUGA [facility] 09-23-2023 07:06-0400 Heart rate 88 /min Micheal PUGA [facility] 09-23-2023 07:06-0400 Respiratory rate 20 /min Micheal PUGA [facility] 09-23-2023 07:06-0400 SaO2% (BldA) [Mass fraction] 100 % Micheal PUGA [facility] 09-23-2023 07:06-0400 Systolic blood pressure 155 mm[Hg] Micheal PUGA [facility] 09-06-2023 11:50-0400 Blood Pressure Location Micheal PUGA [facility] 09-06-2023 11:50-0400 Diastolic blood pressure 82 mm[Hg] Micheal PUGA [facility] 09-06-2023 11:50-0400 Heart rate 75 /min Micheal PUGA [facility] 09-06-2023 11:50-0400 SaO2% (BldA) [Mass fraction] 96 % Micheal PUGA [facility] 09-06-2023 11:50-0400 Systolic blood pressure 136 mm[Hg] Micheal PUGA [facility] 06-18-2023 13:00-0400 Body height 167.64 cm Delroy Hernandez Other [employer] Other 06-18-2023 13:00-0400 Body mass index (BMI) [Ratio] 41.15 kg/m2 Delroy Hernandez Other [employer] Other 06-18-2023 13:00-0400 Body weight 115.67 kg Delroy Hernandez Other [employer] Other 06-18-2023 13:00-0400 Diastolic blood pressure 82 mm[Hg] Delroy Hernandez Other [employer] Other 06-18-2023 13:00-0400 Systolic blood pressure 126 mm[Hg] Delroy Hernandez Other [employer] Other 05-09-2023 16:00-0400 Body height 167.64 cm Brijesh Cadena Other [employer] Other 05-09-2023 16:00-0400 Body mass index (BMI) [Ratio] 41.64 kg/m2 Brijesh Cadena Other [employer] Other 05-09-2023 16:00-0400 Body weight 117.03 kg Brijesh Cadena Other [employer] Other 05-09-2023 16:00-0400 Diastolic blood pressure 75 mm[Hg] Brijesh Cadena Other [employer] Other 05-09-2023 16:00-0400 SaO2% (BldA) [Mass fraction] 100 % Brijesh Cadena Other [employer] Other 06-15-2023 16:00-0400 Systolic blood pressure 136 mm[Hg] Brijesh Cadena Other [employer] Other 05-01-2023 11:44-0400 Diastolic blood pressure 76 mm[Hg] Micheal Puga [facility] 05-01-2023 11:44-0400 Heart rate 58 /min Micheal Puga [facility] 05-01-2023 11:44-0400 SaO2% (BldA) [Mass fraction] 98 % Micheal Puga [facility] 05-01-2023 11:44-0400 Systolic blood pressure 136 mm[Hg] Micheal Puga [facility] 04-08-2023 08:47-0400 Blood Pressure Location April STANG [facility] 04-08-2023 08:47-0400 Diastolic blood pressure 84 mm[Hg] April STANG [facility] 04-08-2023 08:47-0400 Heart rate 63 /min April STANG [facility] 04-08-2023 08:47-0400 SaO2% (BldA) [Mass fraction] 99 % April STANG [facility] 04-08-2023 08:47-0400 Systolic blood pressure 128 mm[Hg] April STANG [facility] 03-25-2023 14:36-0400 Blood Pressure Location Micheal Puga [facility] 03-25-2023 14:36-0400 Diastolic blood pressure 78 mm[Hg] Micheal Puga [facility] 03-25-2023 14:36-0400 Heart rate 63 /min Micheal Puga [address] [place] [address] 03-25-2023 14:36-0400 SaO2% (BldA) [Mass fraction] 96 % Micheal Puga [facility] 03-25-2023 14:36-0400 Systolic blood pressure 142 mm[Hg] Micheal Puga [facility] 03-13-2023 17:12-0400 Hourly Rounding [facility] 03-13-2023 17:12-0400 Promise to Return [facility] 03-13-2023 16:52-0400 Heart rate 65 /min [facility] 03-13-2023 16:52-0400 SaO2% (BldA) [Mass fraction] 98 % [facility] 03-13-2023 16:51-0400 Diastolic blood pressure 84 mm[Hg] [facility] 03-13-2023 16:51-0400 Mean blood pressure 97 mm[Hg] [facility] 03-13-2023 16:51-0400 Systolic blood pressure 125 mm[Hg] [facility] 03-13-2023 16:51-0400 Body temperature 98.06 [degF] [facility] 03-13-2023 16:17-0400 Hourly Rounding [facility] 03-13-2023 16:17-0400 Promise to Return [facility] 03-13-2023 15:17-0400 Hourly Rounding [facility] 03-13-2023 15:17-0400 Promise to Return [facility] 03-13-2023 14:09-0400 Diastolic blood pressure 76 mm[Hg] [facility] 03-13-2023 14:09-0400 Heart rate 67 /min [facility] 03-13-2023 14:09-0400 Systolic blood pressure 112 mm[Hg] [facility] 03-13-2023 13:00-0400 Body temperature 97.7 [degF] [facility] 03-13-2023 13:00-0400 Heart rate 73 /min [facility] 03-13-2023 10:00-0400 Body temperature 97.88 [degF] [facility] 03-13-2023 10:00-0400 Heart rate 76 /min [facility] 03-13-2023 10:00-0400 Mean blood pressure 107 mm[Hg] [facility] 03-13-2023 10:00-0400 SaO2% (BldA) [Mass fraction] 96 % [facility] 03-13-2023 08:12-0400 Mean blood pressure 102 mm[Hg] [facility] 03-13-2023 06:15-0400 Blood Pressure Location [facility] 03-13-2023 06:15-0400 Respiratory rate 16 /min [facility] 03-13-2023 04:15-0400 Blood Pressure Location [facility] 03-13-2023 04:15-0400 Respiratory rate 16 /min [facility] 03-13-2023 02:08-0400 Blood Pressure Location [facility] 03-13-2023 02:08-0400 Respiratory rate 16 /min [facility] 03-12-2023 21:00-0400 Mean blood pressure 87 mm[Hg] [facility] 03-12-2023 09:36-0400 Heart rate 78 /min [facility] 03-12-2023 09:36-0400 Respiratory rate 16 /min [facility] 03-12-2023 08:08-0400 Heart rate 77 /min [facility] 03-12-2023 07:58-0400 Mean blood pressure 84 mm[Hg] [facility] 03-12-2023 07:58-0400 Respiratory rate 16 /min [facility] 03-12-2023 06:00-0400 Respiratory rate 18 /min [facility] 03-12-2023 05:56-0400 Mean blood pressure 89 mm[Hg] [facility] 03-12-2023 04:20-0400 Heart rate 74 /min [facility] 03-12-2023 01:33-0400 gluc 94 mg/dL [facility] 03-12-2023 01:33-0400 gluc [facility] 03-12-2023 01:20-0400 Body temperature 97.7 [degF] [facility] 03-12-2023 01:20-0400 Heart rate 154 /min [facility] 01-11-2023 15:37-0500 Blood Pressure Location Micheal Puga [facility] 01-11-2023 15:37-0500 Diastolic blood pressure 80 mm[Hg] Micheal Puga [facility] 01-11-2023 15:37-0500 Heart rate 98 /min Micheal Puga [facility] 01-11-2023 15:37-0500 SaO2% (BldA) [Mass fraction] 65 % [facility] Puga [facility] 01-11-2023 15:37-0500 Systolic blood pressure 138 mm[Hg] [facility] Puga [facility] 01-11-2023 11:15-0500 Body height 167.64 cm Gina Missler Other [facility] Other 01-11-2023 11:15-0500 Body mass index (BMI) [Ratio] 41.91 kg/m2 Gina Missler Other [facility] Other 01-11-2023 11:15-0500 Body weight 117.8 kg Gina Missler Other [facility] Other 01-11-2023 11:15-0500 Diastolic blood pressure 77 mm[Hg] Gina Missler Other [facility] Other 01-11-2023 11:15-0500 Respiratory rate 18 /min Gina Missler Other [facility] Other 01-11-2023 11:15-0500 SaO2% (BldA) [Mass fraction] 97 % Gina Missler Other [facility] Other 01-11-2023 11:15-0500 Systolic blood pressure 119 mm[Hg] Gina Missler Other [facility] Other 12-07-2022 09:45-0500 Body height 167.64 cm Gina Missler Other [facility] Other 12-07-2022 09:45-0500 Body mass index (BMI) [Ratio] 41.44 kg/m2 Gina Missler Other [facility] Other 12-07-2022 09:45-0500 Body weight 116.48 kg Gina Missler Other [facility] Other 12-07-2022 09:45-0500 Diastolic blood pressure 72 mm[Hg] Gina Missler Other [facility] Other 12-07-2022 09:45-0500 Respiratory rate 18 /min Gina Missler Other [facility] Other 12-07-2022 09:45-0500 SaO2% (BldA) [Mass fraction] 99 % Gina Missler Other [facility] Other 12-07-2022 09:45-0500 Systolic blood pressure 104 mm[Hg] Gina Missler Other [facility] Other 10-31-2022 16:15-0500 Body height 167.64 cm Gina Missler Other [facility] Other 10-31-2022 16:15-0500 Body mass index (BMI) [Ratio] 41.86 kg/m2 Gina Missler Other [facility] Other 10-31-2022 16:15-0500 Body weight 117.66 kg Gina Missler Other [facility] Other 10-31-2022 16:15-0500 Diastolic blood pressure 75 mm[Hg] Gina Missler Other [facility] Other 10-31-2022 16:15-0500 Respiratory rate 18 /min Gina Missler Other [facility] Other 10-31-2022 16:15-0500 SaO2% (BldA) [Mass fraction] 99 % Gina Missler Other [facility] Other 10-31-2022 16:15-0500 Systolic blood pressure 119 mm[Hg] Gina Missler Other [facility] Other 09-19-2022 14:45-0400 Body height 167.64 cm Gina Missler Other [facility] Other 09-19-2022 14:45-0400 Body mass index (BMI) [Ratio] 42.06 kg/m2 Gina Missler Other [facility] Other 09-19-2022 14:45-0400 Body weight 118.21 kg Gina Missler Other [facility] Other 09-19-2022 14:45-0400 Diastolic blood pressure 79 mm[Hg] Gina Missler Other [facility] Other 09-19-2022 14:45-0400 Respiratory rate 18 /min Gina Missler Other [facility] Other 09-19-2022 14:45-0400 SaO2% (BldA) [Mass fraction] 98 % Gina Missler Other [facility] Other 09-19-2022 14:45-0400 Systolic blood pressure 122 mm[Hg] Gina Missler Other [facility] Other 07-09-2022 13:45-0400 Blood Pressure Location [facility]al P[facility] 07-09-2022 13:45-0400 Diastolic blood pressure 80 mm[Hg] [facility] Puga [facility] 07-09-2022 13:45-0400 Heart rate 56 /min [facility]al Puga [facility] 07-09-2022 13:45-0400 Respiratory rate 18 /min [facility]al Puga [facility] 07-09-2022 13:45-0400 SaO2% (BldA) [Mass fraction] 96 % [facility] Puga [facility] 07-09-2022 13:45-0400 Systolic blood pressure 146 mm[Hg] [facility] Puga [facility] 05-02-2022 15:17-0400 Blood Pressure Location April STANG [facility] 05-02-2022 15:17-0400 Diastolic blood pressure 83 mm[Hg] April STANG [facility] 05-02-2022 15:17-0400 Heart rate 60 /min April STANG [facility] 05-02-2022 15:17-0400 Respiratory rate 18 /min April STANG [facility] 05-02-2022 15:17-0400 SaO2% (BldA) [Mass fraction] 100 % April STANG [facility] 05-02-2022 15:17-0400 Systolic blood pressure 132 mm[Hg] April STANG [facility] 04-27-2022 08:00-0400 Diastolic blood pressure 78 mm[Hg] Kaylinn Dokken [facility] 04-27-2022 08:00-0400 Heart rate 64 /min Kaylinn Dokken [facility] 04-27-2022 08:00-0400 Respiratory rate 16 /min Kaylinn Dokken [facility] 04-27-2022 08:00-0400 SaO2% (BldA) [Mass fraction] 97 % Kaylinn Dokken [facility] 04-27-2022 08:00-0400 Systolic blood pressure 104 mm[Hg] Kaylinn Dokken [facility] 04-27-2022 07:00-0400 Diastolic blood pressure 77 mm[Hg] Kaylinn Dokken [facility] 04-27-2022 07:00-0400 Heart rate 65 /min Kaylinn Dokken [facility] 04-27-2022 07:00-0400 Mean blood pressure 89 mm[Hg] Kaylinn Dokken [facility] 04-27-2022 07:00-0400 SaO2% (BldA) [Mass fraction] 96 % Kaylinn Dokken [facility] 04-27-2022 07:00-0400 Systolic blood pressure 113 mm[Hg] Kaylinn Dokken [facility] 04-27-2022 06:00-0400 Diastolic blood pressure 80 mm[Hg] Kaylinn Dokken [facility] 04-27-2022 06:00-0400 Heart rate 80 /min Kaylinn Dokken [facility] 04-27-2022 06:00-0400 Respiratory rate 22 /min Kaylinn Dokken [facility] 04-27-2022 06:00-0400 SaO2% (BldA) [Mass fraction] 95 % Kaylinn Dokken [facility] 04-27-2022 06:00-0400 Systolic blood pressure 103 mm[Hg] Daniel Barillas [facility] 04-27-2022 05:30-0400 Mean blood pressure 88 mm[Hg] Daniel Barillas [facility] 04-27-2022 05:05-0400 Body temperature 98.06 [degF] Daniel Barillas [facility] 04-27-2022 05:05-0400 Heart rate 151 /min Daniel Barillas [facility] 03-21-2022 16:45-0400 Body height 167.64 cm Jose Alfredo Taylor II Other [facility] Other 03-21-2022 16:45-0400 Body mass index (BMI) [Ratio] 41.8 kg/m2 Jose Alfredo Yohannes II Other [facility] Other 03-21-2022 16:45-0400 Body weight 117.48 kg Jose Alfredo Taylor II Other [facility] Other 12-20-2021 16:00-0500 Body height 167.64 cm Jose Alfredo Yohannes II Other [facility] Other 12-20-2021 16:00-0500 Body mass index (BMI) [Ratio] 40.35 kg/m2 Jose Alfredo Taylor II Other [facility] Other 12-20-2021 16:00-0500 Body weight 113.4 kg Jose Alfredo Taylor II Other [facility] Other 09-12-2021 16:45-0400 Body height 167.64 cm Brijesh Galvan Other [facility] Other 09-12-2021 16:45-0400 Body mass index (BMI) [Ratio] 40.02 kg/m2 Brijesh Galvan Other [facility] Other 09-12-2021 16:45-0400 Body weight 112.49 kg Brijesh Galvan Other [facility] Other Encounters Encounter Date Encounter Type Care Provider Facility Start: 06-30-2025 End: 06-30-2025 ambulatory Delroy Hernandez MD Work Phone: [facility] Work Phone: Start: 06-30-2025 End: 06-30-2025 Patient encounter procedure Delroy Hernandez MD -[facility] Work Phone: Start: 05-31-2025 End: 05-31-2025 Office outpatient visit 15 minutes Alisha Casas DO Work Phone: [facility] Comment on above: Dyspareunia in femal e (Primary Dx); Vaginal dryness; Cystocele, midline; Lichen sclerosus; Vulvar itching; Hx of hysterectomy for benign disease; Hx of BSO (bilateral salpingo-oophorectomy) Start: 05-31-2025 End: 05-31-2025 ambulatory ALISHA CASAS Not Available Start: 05-27-2025 End: 05-27-2025 Departed Referred Kurtis Rodriguez DO [facility] Start: 05-27-2025 End: 05-27-2025 ambulatory Delroy Hernandez MD Work Phone: [facility] Work Phone: Start: 03-16-2025 End: 03-16-2025 Patient encounter procedure Sach[facility] Medina [facility] Work Phone: Start: 02-22-2025 Non-patient / Non-visit Delroy Hernandez MD Work Phone: [facility] Work Phone: Start: 02-22-2025 End: 02-22-2025 Admission to same day surgery center Delroy Hernandez MD Work Phone: [facility]Dig[facility] Work Phone: Start: 02-22-2025 End: 02-22-2025 ambulatory Delroy Hernandez MD Work Phone: [facility] Work Phone: Start: 10-06-2024 End: 10-06-2024 Patient encounter procedure Delroy Hernandez MD Work Phone: [facility] Work Phone: Start: 10-06-2024 End: 10-06-2024 ambulatory Delroy Hernandez MD Work Phone: [facility] Work Phone: Start: 09-29-2024 End: 09-29-2024 Patient encounter procedure MD Delroy Hernandez Work Phone: [facility] Work Phone: Start: 09-29-2024 End: 09-29-2024 ambulatory MD Delroy Hernandez Work Phone: [facility] Work Phone: Start: 09-18-2024 Patient encounter status MD Delroy Hernandez Work Phone: [facility] Start: 09-18-2024 End: 09-18-2024 Encounter for general adult medical examination without abnormal findings MD Delroy Hernandez Work Phone: [facility] Start: 09-18-2024 End: 09-18-2024 Patient encounter procedure MD Delroy Hernandez Work Phone: [facility] Physician [facility] Work Phone: Start: 09-18-2024 End: 09-18-2024 Patient encounter procedure MD Delroy Hernandez Work Phone: [facility] Work Phone: Start: 09-18-2024 End: 09-18-2024 ambulatory Delmer Delfino Facility:[facility] Start: 09-18-2024 End: 09-18-2024 Departed Referred MD Delroy Hernandez Work Phone: [facility] Start: 09-18-2024 End: 09-18-2024 ambulatory Kurtis Tyler - [facility] Facility:[facility] Start: 09-02-2024 End: 09-02-2024 Patient encounter procedure MD Delroy Hernandez Work Phone: [facility] Work Phone: Start: 07-23-2024 End: 07-23-2024 ambulatory MD Delroy Hernandez Work Phone: [facility] Work Phone: Start: 07-23-2024 End: 07-23-2024 Discharged Recurring MD Delroy Hernandez Work Phone: [facility]-Physical Therapy [employer] Start: 06-12-2024 End: 06-12-2024 Patient encounter procedure MD Delroy Hernandez Work Phone: [facility] Work Phone: Start: 06-12-2024 End: 06-12-2024 ambulatory MD Delroy Hernandez Work Phone: [facility] Work Phone: Start: 06-05-2024 End: 06-05-2024 Patient encounter procedure MD Delroy Hernandez Work Phone: [facility] Work Phone: Start: 05-26-2024 End: 05-26-2024 ambulatory MD Delroy Hernandez Work Phone: [facility] Work Phone: Start: 05-26-2024 End: 05-26-2024 Patient encounter procedure MD Delroy Hernandez Work Phone: [facility] Work Phone: Start: 05-26-2024 End: 05-26-2024 Patient encounter procedure MD Delroy Hernandez Work Phone: [facility] Work Phone: Start: 04-28-2024 End: 04-28-2024 Patient encounter procedure MD Delroy Hernandez Work Phone: [facility] Physician [facility] Cardiology Work Phone: Start: 04-09-2024 End: 04-09-2024 ambulatory MD Delroy eHrnandez Work Phone: [facility] Work Phone: Start: 04-09-2024 End: 04-09-2024 Patient encounter procedure MD Delroy Hernandez Work Phone: [facility]Electrodiagnostics Work Phone: Start: 03-19-2024 End: 03-19-2024 ambulatory MD Delroy Hernandez Work Phone: [facility] Work Phone: Start: 03-19-2024 End: 03-19-2024 Patient encounter procedure MD Delroy Hernandez Work Phone: [facility] Physician [facility] Cardiology Work Phone: Start: 12-03-2023 End: 12-03-2023 ambulatory Delroy Heranndez Other [facility] Other Start: 12-03-2023 Telephone encounter Delroy Hernandez [facility] Start: 10-29-2023 End: 10-30-2023 ambulatory XXXX NONE Facility:[facility] Start: 10-29-2023 End: 10-29-2023 Patient encounter procedure [facility]al PUGA [facility] Start: 10-24-2023 End: 10-24-2023 ambulatory Delroy Hernandez Other [facility] Other Start: 10-24-2023 Telephone encounter Delroy Hernandez [facility] Start: 10-02-2023 End: 10-03-2023 ambulatory Darrick Castillo Facility:[facility] Start: 10-02-2023 End: 10-15-2023 Pre-admission assessment Darrick Castillo [facility] Start: 10-02-2023 End: 10-02-2023 Patient encounter procedure Darrick Castillo [facility] Start: 10-01-2023 End: 10-01-2023 ambulatory Delroy Hernandez Other [facility] Other Start: 10-01-2023 Office outpatient visit [address] [facility] Start: 09-28-2023 End: 09-28-2023 ambulatory MD Delroy Hernandez Work Phone: [facility] Work Phone: Start: 09-28-2023 End: 09-28-2023 Patient encounter procedure MD Delroy Hernandez Work Phone: [facility] Work Phone: Start: 09-25-2023 End: 09-26-2023 ambulatory Micheal PUGA Facility:[facility] Start: 09-25-2023 End: 09-25-2023 Patient encounter procedure [facility]heal PUGA [facility] Start: 09-23-2023 End: 09-23-2023 ambulatory Micheal PUGA Facility:[facility] Start: 09-23-2023 End: 09-23-2023 Admission to same day surgery center [facility]heal PUGA [facility] Start: 09-13-2023 End: 09-13-2023 Departed Referred MD Delroy Hernandez Work Phone: [facility]-Employee Benefit Screening Start: 09-13-2023 End: 09-13-2023 ambulatory MD Delroy Hernandez Work Phone: [facility] Work Phone: Start: 09-13-2023 End: 09-13-2023 Patient encounter procedure MD Delroy Hernandez Work Phone: [facility] Start: 09-06-2023 End: 09-07-2023 ambulatory Micheal PUGA Facility:[facility] Start: 09-06-2023 End: 09-06-2023 Patient encounter procedure Micheal PUGA [facility] Start: 07-09-2023 End: 07-09-2023 ambulatory Delroy Hernandez Other [facility] Other Start: 07-09-2023 Telephone encounter Delroy Hernandez [facility] Start: 06-18-2023 End: 06-18-2023 ambulatory Delroy Hernandez Other [facility] Other Start: 06-18-2023 Office outpatient visit [address] [facility] Start: 06-13-2023 End: 06-13-2023 ambulatory Delroy Hernandez Other [facility] Other Start: 06-13-2023 Telephone encounter Delroy Hernandez [facility] Start: 06-03-2023 End: 06-03-2023 ambulatory MD Delroy Hernandez Work Phone: [facility] Work Phone: Start: 06-03-2023 End: 06-03-2023 Patient encounter procedure MD Delroy Hernandez Work Phone: [facility]Sleep Lab Work Phone: Start: 05-09-2023 End: 05-09-2023 Patient encounter procedure MD Delroy Hernandez Work Phone: [facility] Work Phone: Start: 05-09-2023 End: 05-09-2023 ambulatory MD Delroy Hernandez Work Phone: [facility] Work Phone: Start: 05-09-2023 Office outpatient visit 25 minutes Brijesh [facility] Start: 05-01-2023 End: 05-02-2023 ambulatory XXXX NONE Facility:[facility] Start: 05-01-2023 End: 05-01-2023 Patient encounter procedure Micheal Puga [facility] Start: 04-08-2023 End: 04-09-2023 ambulatory XXXX NONE Facility:[facility] Start: 04-08-2023 End: 04-08-2023 Patient encounter procedure April CHILDERS [facility] Start: 03-25-2023 End: 03-25-2023 Patient encounter procedure Micheal Puga [facility] Start: 03-13-2023 ambulatory Facility:[id number] Start: 03-12-2023 End: 03-13-2023 Observation [facility] Start: 02-27-2023 Registered Recurring MD Delroy Hernandez Work Phone: [facility]-Weight Management Work Phone: Start: 01-11-2023 End: 01-11-2023 Patient encounter procedure Micheal Puga [facility] Start: 01-11-2023 (FCCCWMNF/U) Weight Management f/u Gina Gonzalez [facility] Start: 01-11-2023 End: 01-11-2023 ambulatory Gina Gonzalez Other [facility] Other Start: 12-08-2022 End: 12-08-2022 ambulatory MD Delroy Hernandez Work Phone: [facility] Work Phone: Start: 12-08-2022 End: 12-08-2022 Patient encounter procedure MD Delroy Hernandez Work Phone: [facility] Work Phone: Start: 12-07-2022 (FCCCWMNF/U) Weight Management f/u Gina Gonzalez [facility] Start: 12-07-2022 End: 12-07-2022 ambulatory Gina Gonzalez Other [facility] Other Start: 12-07-2022 Registered Recurring MD Delroy Hernandez Work Phone: [facility] Work Phone: Start: 10-31-2022 (FCCCWMNF/U) Weight Management f/u Gina Gonzalez [facility] Start: 10-31-2022 End: 10-31-2022 ambulatory Gina Gonzalez Other [facility] Other Start: 10-09-2022 End: 10-09-2022 ambulatory MD Delroy Hernandez Work Phone: [facility] Work Phone: Start: 10-09-2022 End: 10-09-2022 Patient encounter procedure MD Delroy Hernandez Work Phone: [facility] Start: 09-25-2022 End: 09-25-2022 ambulatory MD Delroy Hernandez Work Phone: [facility] Work Phone: Start: 09-25-2022 End: 09-25-2022 Patient encounter procedure MD Delroy Hernandez Work Phone: [facility] Start: 09-19-2022 End: 09-19-2022 ambulatory Gina Gonzalez Other [facility] Other Start: 09-19-2022 Nutrition therapy Gina Gonzalez [facility] Start: 09-19-2022 Registered Recurring MD Delroy Hernandez Work Phone: [facility] Start: 08-13-2022 Adult health examination Delroy Hernandez Other [facility] Other Start: 08-13-2022 Gynecological examination normal Delroy Hernandez Other [facility] Other Start: 08-13-2022 Problem, abnormal examination Delroy Hernandez Other [facility] Other Start: 08-07-2022 End: 08-07-2022 ambulatory Nemesio Meadows Other [facility] Other Start: 08-07-2022 Office outpatient visit 5 minutes Nemesio Meadows [facility] Urgent Care [facility] Start: 07-09-2022 End: 07-09-2022 Patient encounter procedure Micheal Puga [facility] Start: 07-09-2022 End: 07-09-2022 Departed Referred MD Delroy Hernandez Work Phone: [facility]-Employee Benefit Screening Start: 06-01-2022 End: 09-06-2022 Recurring Micheal Puga [facility] Start: 05-05-2022 End: 05-05-2022 Patient encounter procedure MD Delroy Hernandez Work Phone: [facility] Start: 05-02-2022 End: 05-02-2022 Patient encounter procedure April CHILDERS [facility] Start: 04-27-2022 End: 04-27-2022 Emergency department patient visit Daniel Barillas [facility] Start: 04-09-2022 End: 04-09-[address] DELROY HERNANDEZ Facility: Start: 04-09-2022 End: 04-09-2022 Pre-procedure evaluation check Delroy Hernandez Other [facility] Other Start: 03-21-2022 End: 03-21-2022 ambulatory Jose Alfredo Yohannes II Other [facility] Other Start: 03-21-2022 Office outpatient visit 15 minutes Jose Alfredo Yohannes II [facility] Start: 12-20-2021 End: 12-20-2021 ambulatory Jose Alfredo Taylor II Other [facility] Other Start: 12-20-2021 Office outpatient ne w 45 minutes Jose Alfredo Taylor II [facility] Start: 09-12-2021 Office outpatient ne w 45 minutes Brijesh Galvan [facility] Gastroenterology Procedures Date Procedure Procedure Detail Performing Clinician Start: 02-22-2025 Esophagogastroduodenoscopy Delroy Hernandez MD Work Phone: Start: 10-06-2024 X-ray of cervical spine Delroy Hernandez MD Work Phone: Start: 09-29-2024 Screening mammography of bilateral breasts MD Delroy Hernandez Work Phone: Start: 09-18-2024 Dual energy X-ray absorptiometry MD Abdelrahman Hernandez Work Phone: Start: 06-12-2024 Radiologic examination of knee MD Delroy Hernandez Work Phone: Start: 06-12-2024 Pelvis X-ray MD Delroy Hernandez Work Phone: Start: 05-26-2024 Radiologic examination of knee MD Delroy Hernandez Work Phone: Start: 09-23-2023 Catheterization of left heart Micheal TOBIN Start: 09-23-2023 Catheterization of right heart Micheal COLON Start: 09-13-2023 Plain X-ray of right hip MD Delroy Hernandez Work Phone: Start: 03-13-2023 Cardioversion Isabell Juarez Start: 10-09-2022 End: 10-09-2022 Mammography of left breast MD Delroy santo Work Phone: Start: 09-25-2022 Screening mammography of bilateral breasts MD Delroy Hernandez Work Phone: Start: 04-28-2021 Colonoscopy Alisha Nataprawira DO Work Phone: Start: 04-28-2021 Colonoscopy Kerrieinn lucaen Start: 04-28-2021 Esophagogastroduodenoscopy gastric outlet reduction Erensudhakar Jenkinsen Start: 03-29-2021 Esophagogastroduodenoscopy Erensudhakar Jenkinse n Start: 11-25-2012 Repair of hip Erensudhakar Jenkinsen Start: 05-07-2011 End: 04-09-2022 Hormone replacement therapy Delroy Hernandez Other Start: 11-25-2005 Appendectomy Erensudhakar Jenkinsen Start: 11-25-1969 Bilateral plasma mediated ablation tonsillectomy Kasudhakar Jenkinsen Cholecystectomy Kasudhakar Jenkins en H/O: artificial joint Delroy Hernandez Other Hysterectomy Daniel Barillas Screening for malign ant neoplasm of breast Delroy Hernandez Other Screening for malign ant neoplasm of skin Delroy Hernandez Other Screening for osteoporosis M terry Hernandez Other Plan of Treatment Date Care Activity Detail Author Start: 04-28-2031 Screening for malign ant neoplasm of colon [facility] Start: 07-26-2025 Influenza vaccination Influenz a Vaccine (#1) [facility] Start: 07-07-2025 End: 07-07-2025 Patient encounter procedure 07/07/2025 10:30 AM EDT Office Visit [facility] [address] [address] Alisha Casas, DO [address] [address] [facility] Start: 02-22-2025 [facility] Start: 10-09-2023 Screening for malign ant neoplasm of breast Mammogram [facility] Start: 09-28-2023 MG Breast - bilatera l Screening [facility] Start: 09-28-2023 Screening mammograph y of bilateral breasts MM screening mammo BI w/CAD [facility] Start: 09-13-2023 [facility] Start: 1995 Screening for malign ant neoplasm of cervix [facility] Start: 1986 Screening for malign ant neoplasm of cervix Pap Smear [facility] Start: 1965 Screening for malign ant neoplasm of colon [facility] Patient Education Swanson's Esop hagus (DC) Stomach polyps Know your [facility] Work Phone: US Heart Transthoracic [facility] XR Cervical spine 5 Views [facility] [place] [facility] Immunizations Immunization Date Immunization Notes Care Provider Fa cility 08-26-2023 influenza virus vaccine, unspecified formulation Micheal PUGA [facility] 08-26-2023 influenza, injectabl e, quadrivalent, preservative free MD Delroy Hernandez Work Phone: [facility] 10-06-2021 COVID-19 Ad26.COV2.S (Cristian) MD Delroy Hernandez Work Phone: [facility] Comment on above: Result Comment: 2022: [id number] 12-01-2020 Hepatitis B vaccine (recombinant), CpG adjuvanted MD Delroy Hernandez Work Phone: [facility] 12-01-2020 hepatitis B vaccine, adult dosage Micheal PUGA [facility] 12-01-2020 tetanus toxoid, redu sindhu diphtheria toxoid, and acellular pertussis vaccine, adsorbed Micheal PUGA [facility] 09-06-2016 influenza virus vaccine, unspecified formulation Micheal PUGA [facility] 09-06-2016 influenza, injectabl e, quadrivalent, preservative free MD Delroy Hernandez Work Phone: [facility] Payers Date Payer Category Payer Self-pay [id number] 2022 Private Health Insurance [employer] [id number] 2019 Unknown [id number] 1965 Unknown [id number] 2.16.840.1.319271.3.579.2. 593 1965 Unknown [id number] 2.16.840.1.867150.3.579.2. 356 1965 Unknown [id number] 2.16.840.1.692137.3.579.2. 727 1965 Unknown [id number] 2.16840.1.630178.3.579.2. 727 1965 Unknown [id number] 2.840.1.849597.3.579.2. 727 1965 Unknown [id number] 2.840.1.295971.3.579.2. 727 1965 Unknown [id number] 2.840.1.134493.3.579.2. 727 1965 Unknown [id number] 2.840.1.083896.3.579.2. 727 1965 Unknown [id number] 2.840.1.821313.3.579.2. 727 1965 Unknown [id number] 2.16840.1.715269.3.579.2. 727 1965 Unknown [id number] 2.16840.1.891242.3.579.2. 1259 Unknown Regular Insurance [id number] Unknown [id number] 2.16.840.1.120317.3.579.2. 531 Unknown [id number] 2.16.840.1.820679.3.579.2. 531 Unknown [id number] 2.16.840.1.001905.3.579.2. 531 Unknown [id number] 2.16.840.1.014411.3.579.2. 531 Unknown [id number] 2.16.840.1.709898.3.579.2. 531 Unknown [id number] 2.16.840.1.297608.3.579.2. 531 Unknown [id number] 2.16.840.1.353716.3.579.2. 531 Unknown [id number] 2.16.840.1.660764.3.579.2. 531 Social History Date Type Detail Facility Start: 05-25-2021 End: 02-22-2025 Never smoked tobacco (finding) [facility] [employer] Other Comment on above: denies Never [facility] Comment on above: denies Start: 05-31-2025 Female [facility] [employer] Other Start: 1965 Sex Assigned At Female [facility] Tobacco [facility] Comment on above: denies Tobacco smoking status No Smoking Status Entered [facility] Start: 10-07-2024 End: 02-22-2025 Sex Female (finding) [facility] Start: 08-01-2023 Tobacco use and exposure Smokeless tobacco non-user [facility] Start: 05-31-2025 Alcoholic beverage intake Current drinker of alcohol (finding) [facility] Start: 05-31-2025 History of Social function [facility] Start: 1965 Sex assigned at Not on file [facility] NEGATED: Highlighted row [facility] NEGATED: Highlighted rowStart: NINF History of tobacco use Passive smoker [facility] Goals Date Patient Goal Desired Activity /State Functional Status Date Assessment Result Facility 10-29-2023 Functional Status No [facility] 10-02-2023 Functional Status No [facility] 09-23-2023 Functional Status N/A [facility] 09-06-2023 Functional Status No [facility] 05-01-2023 Functional Status No [facility] 04-08-2023 Functional Status No [facility] 03-25-2023 Functional Status No [facility] 03-12-2023 Functional Status N/A [facility] 03-12-2023 Functional Status [facility] 01-11-2023 Functional Status No [facility] 07-09-2022 N/A [facility] Clinical Notes 09-12-2021 to 05-31-2025 Alisha Casas, DO - 05/31/2025 1:30 PM EDT Note Date & Type Note Facility 05-31-2025 History of Presen t illness Narrative Images from the original note were not included. Subjective Hanna Harris is a 60 y.o. female HPI Chief Complaint Patient presents with sick visit Patient here today for problem visit. Former Dr. Saleh pt. Patient reports vaginal dryness, painful intercourse upon insertion, vaginal and vulvar itching. Has hx of lichen sclerous that she was diagnosed in 2001. Patient states that she she tried [place] lubricants and [place] without relief. Would like a refill in Clobetasol. Past Medical History: Diagnosis Date abnormal left optic nerve Afib ([facility]) 01/2020 Anosmia Depression GERD (gastroesophageal reflux disease) HTN (hypertension) Hypothyroidism (acquired) Lichen Sclerosis Migraine headache Pancreatitis ([facility]) 2016 Past Surgical History: Procedure Laterality Date APPENDECTOMY CHOLECYSTECTOMY 09/2014 DILATION AND CURETTAGE OF UTERUS ENDOMETRIAL ABLATION 2005 FOOT FASCIOTOMY Left NEUROMA SURGERY 09/28/2016 removal of neuroma lefr 3rd interspace- Dr. Trinidad Wiseman [place] TOTAL HIP ARTHROPLASTY Right 09/2013 TOTAL ABDOMINAL HYSTERECTOMY W/ BILATERAL SALPINGOOPHORECTOMY VAGINAL DELIVERY Family History Problem Relation Name Age of Onset Breast cancer Mother Diabetes Mother Hypertension Mother Hypertension Father Heart disease Father Hyperlipidemia Other Social History Tobacco Use Smoking status: Never Passive exposure: Never Smokeless tobacco: Never Vaping Use Vaping status: Unknown Substance Use Topics Alcohol use: Yes Drug use: Defer OB History Para Term AB Living 2 1 SAB IAB Ectopic Multiple Live Births # Outcome Date GA Lbr Jeff/2nd Weight Sex Type Anes PTL Lv 2 1 Para Allergies Allergen Reactions Acetaminophen Other Reaction(s): Unknown Reaction Celecoxib Other Other Reaction(s): Hives, Not available, Unknown Codeine Other Reaction(s): CODEINE DERIVATIVES, Hives/Skin Rash Oxycodone Itching and Other Other Reaction(s): Itching, tongue swelling, Not available, Unknown Sulfa Antibiotics Other Reaction(s): Hives, SULFA DRUGS Other Reaction(s): Unknown Other Reaction(s): Not available Sulfanilamide Other Current Outpatient Medications on File Prior to Visit Medication Sig Dispense Refill [DISCONTINUED] clobetasol (Temovate) 0.05 % cream Apply topically in the morning and before bedtime. dilTIAZem CD (Cardizem CD) 240 MG 24 hr capsule Take 240 mg by mouth in the morning. hydroCHLOROthiazide (HYDRODiuril) 12.5 MG tablet Take 12.5 mg by mouth in the morning. levothyroxine (Synthroid, Levoxyl) 75 MCG tablet Take 75 mcg by mouth in the morning. pantoprazole (ProtoNix) 40 MG EC tablet TAKE 1 BY MOUTH ONCE DAILY potassium chloride ER (Micro-K) 10 MEQ ER capsule TAKE 1 CAPSULE BY MOUTH ONCE DAILY WITH FOOD Xarelto 20 MG tablet Take 20 mg by mouth in the morning. No current facility-administered medications on file prior to visit. Review of Systems Constitutional: Negative for chills and fever. Respiratory: Negative for shortness of breath. Cardiovascular: Negative for chest pain. Gastrointestinal: Negative for nausea and vomiting. Genitourinary: Negative for dysuria, pelvic pain and vaginal discharge. Neurological: Negative for dizziness and headaches. Objective BP 138/80 Wt 260 lb BMI 41.97 kg/m Physical Exam Constitutional: Appearance: Normal appearance. Genitourinary: No lesions in the vagina. Right Labia: No lesions or skin changes (slight discoloration of right labia). Left Labia: No lesions. Vaginal cuff intact. No vaginal discharge. Anterior vaginal prolapse present. Moderate vaginal atrophy present. Right Adnexa: not tender and no mass present. Left Adnexa: not tender and no mass present. Cervix is absent. Uterus is absent. Neurological: Mental Status: She is alert. Skin: General: Skin is warm and dry. Psychiatric: Mood and Affect: Mood normal. Assessment/Plan 1. Dyspareunia in female (Primary) Discussed moisturizer, lubricant use (coconut oil, over the counter lubricant use). Premarin cream Rx sent. Will reassess symptoms at the next office visit - Estrogens Conjugated (Premarin) 0.625 MG/GM cream; Insert 0.5 g into the vagina See administration instructions Take 0.5 gram at bedtime for 2 weeks and then take 0.5 gram on Saturday, Saturday, and Saturday Dispense: 30 g; Refill: 3 2. Vaginal dryness - Estrogens Conjugated (Premarin) 0.625 MG/GM cream; Insert 0.5 g into the vagina See administration instructions Take 0.5 gram at bedtime for 2 weeks and then take 0.5 gram on Saturday, Saturday, and Saturday Dispense: 30 g; Refill: 3 3. Cystocele, midline Discussed findings. Stressed the importance of complete bladder emptying and avoiding long periods between voiding. Patient voiced understanding 4. Lichen sclerosus Clobetasol Rx sent. To be used as needed - clobetasol (Temovate) 0.05 % cream; Apply topically in the morning and before bedtime. Dispense: 15 g; Refill: 0 5. Vulvar itching Denies any symptoms today - clobetasol (Temovate) 0.05 % cream; Apply topically in the morning and before bedtime. Dispense: 15 g; Refill: 0 6. Hx of hysterectomy for benign disease - Estrogens Conjugated (Premarin) 0.625 MG/GM cream; Insert 0.5 g into the vagina See administration instructions Take 0.5 gram at bedtime for 2 weeks and then take 0.5 gram on Saturday, Saturday, and Saturday Dispense: 30 g; Refill: 3 7. Hx of BSO (bilateral salpingo-oophorectomy) - Estrogens Conjugated (Premarin) 0.625 MG/GM cream; Insert 0.5 g into the vagina See administration instructions Take 0.5 gram at bedtime for 2 weeks and then take 0.5 gram on Saturday, Saturday, and Saturday Dispense: 30 g; Refill: 3 documented in this encounter [facility] 03-16-2025 Evaluation note Diagnosis Onset Date Resolution Dyspnea on exertion acute March 16, 2025 12:53pm Essential hypertension acute Ap 2024 12:53pm BUD (obstructive sleep apnea) acute March 16, 2025 12:53pm Paroxysmal atrial fibrillation acute March 16, 2025 12:53pm [facility] Work Phone: [phone] 188-763903-31-2025 [place] [address] Gastroenterology H&P Signed Patient: Hanna Harris MR#: [id number] : 1965 Acct:[id number] Age/Sex: 59 / F Adm Date: 5 Loc: Room: Type: [facility] Attending Dr: Maria Isabel Larry DO Copies to: DO Delroy Loo MD~ Date of Service: 02/22/2025 HISTORY & PHYSICAL: Patient's history with special attention to the cardiovascular, pulmonary systems and the current problem was reviewed with the patient immediately prior to the procedure. Present medications and doses reviewed in the EMR. Allergies and pertinent laboratory tests were also re viewedat this time in the EMR. The physical examination, as below, was then performed. Indication, assessment and HPI: 59-year-old female who presents for EGD for personal history of Swanson's esophagus and GERD. Patient takes Protonix once daily. Last EGD in [address] Galvan. Family history of GI malignancy? No PHYSICAL EXAMINATION General appearance: cooperative, NAD Skin: No jaundice, no rash or lesions Head: NCAT Eyes: Anicteric Neck: Supple Lungs: Normal respiratory effort, no use of accessory muscles Abdomen: Soft, nondistended Neuro: No focal deficits, Ox3. REVIEW OF SYSTEMS Constitutional: Denies malaise, fevers Cardiovascular: Denies chest pain, palpitations Respiratory: Denies shortness of breath, wheezing Gastrointestinal: As per HPI Genitourinary: Denies dysuria, polyuria Musculoskeletal: Denies joint swelling, joint stiffness Neurological: Denies confusion, numbness, tingling Endocrine: Denies fatigue Written informed consent obtained from the patient. Risks (including but not limited to perforation, infection, bloating, bleeding, need for emergent surgeryand loss of life), benefits and alternatives explained and questions answered. The patient verbalized understanding. Based on history patient is an appropriate candidate for the procedure. Maria Isabel Larry DO Present medication and doses reviewed in the EMR Documented By: Maria Isabel Larry DO 02/22/25 0758 Signed By: 02/22/25 0758 [facility]03-31-[address] [address] EGD Procedure Note Signed Patient: Hanna Harris MR#: [id number] : 1965 Acct:[id number] Age/Sex: 59 / F Adm Date: Loc: Room: Type: [facility] Attending Dr: Maria Isabel Larry DO Copies to: DO Delroy Loo MD~ Esophagogastroduodenoscopy Date/Provider Date: 02/22/2025 Maria Isabel Larry DO Narrative Narrative: Procedure: EGD with biopsy Indication: History of Swanson's esophagus, GERD. Last EGD in 2021 Pre-operative diagnosis: History of Swanson's esophagus, GERD Post-operative diagnosis: Consistent with known Swanson's esophagus-single, salmon-colored mucosa extending 1 cm above the GE junction status post biopsies,gastric polyps status post biopsy, otherwise normal EGD status post small bowel gastric biopsies obtained Sedation: propofol per anesthesia dept O2 oximetry, hemodynamic monitoring was performed pre, during, and post procedure. Patient was identified, H&P completed, patient was given full explanation of the procedure as well as associatedrisks and written consent wasobtained prior to procedure. Patient expressed complete understanding of the procedure as well as alternatives to the procedure and to anesthesia and agreed to proceed with the procedure as indicated. Patient was immediately reassessed prior to IV sedation. Following IV sedation, patient was placed in the left lateral decubitus position. Bite block was inserted. Endoscope was passed through the mouth, into the esophagus. Endoscope was advanced into the stomach through the pyloricchannel and into the 2nd portion of duodenum by direct visualization. Endoscopewas withdrawn into the stomach and retroflexion was performed. The endoscope was straightened,the stomach was decompressed. Endoscope was withdrawn into the esophagus then completely removed with the findings as below. Findings: DUODENUM: The bulb and descending portion appeared normal. Biopsies were obtained from the small bowel for histology and to rule out Celiac disease. STOMACH: There were multiple gastric polyps in the gastric fundus status post biopsy of one of the polyps obtained with standard forceps and sent to pathology. The stomach including retroflexed viewswas otherwise normal. Biopsies were obtained from the gastric antrum and body for histology and to rule out H. Pylori. ESOPHAGUS: GE junction (upper margin of gastric folds) was at 37 cm from incisors. There was a single tongue of salmon-colored mucosa extending up 1 cm above the GE junction. No other abnormalities identified. Biopsies were obtained from this area and sent to pathology for Swanson's esophagus. Esophagus otherwise normal. Biopsy taken: Yes Complications: None EBL: Minimal Recommendations: -Follow up pathology -Resume normal diet -Continue PPI and lifestyle modifications for GERD -Follow up in the office as needed -Repeat EGD in 3 years -Follow up with PCP Following a period of recovery, patient was seen and given full explanation of the procedure. Patient tolerated the procedure well and will be discharged in satisfactory, stable condition. Maria Isabel Larry DO Documented By: Maria Isabel Larry DO 02/22/25 0758 Signed By: 02/22/25 0809 [facility]10-09-2024 Evaluation note* Diagnosis Onset Date Resolution Status Admit Date Dyspnea on exertion acute Augob er 2023 8:21am Essential hypertension acute Oc tober 2023 8:21am BUD (obstructive sleep apnea) acute September 02, 2024 8:21am Palpitations acute September 02, 2024 8:21am Paroxysmal atrial fibrillation acute September 02, 2024 8:21am Cervical pain (neck) acute 2023 1:02pm Paroxysmal atrial fibrillation acute September 18, 2024 1:02pm Wellness examination acute 2023 1:02pm [facility] Work Phone: [phone] 304-476211-07-2023 Evaluation note* Encounter Date Diagnosis Assessment Notes Treatment Notes Treatment Clinical Notes Sep, S/P cardiac cath (ICD-10 - Z98.890) I also called [facility] Cardiology and left message. Hanna's vitals are stable and requested the move up her next appt. She understands to go to ER if symptoms worsen. [facility] Other 10-31-2023 Note [id number] [facility] 09-23-2023 Hospital Discharge instructions Patient Education 09/23/2023 08:41:00 CV - Cardiovascular Discharge Instructions (CUSTOM) [place], [place] CARDIOVASCULAR DISCHARGE INSTRUCTIONS Diet: Resume pre-procedure diet. Increase water intake the next 2 days to flush dye out of the body. Activity: If groin access: Limit activity today. Do not operate a vehicle, machinery or power tools. NO LIFTING OVER 10 POUNDS (a gallon of milk weighs 8 pounds) for 3 days. Limit climbing stairs, bending, squatting and stooping for 3 days. May resume driving in 24 hours. No sexual activity for 1 week. Let pain/discomfort guide your activity. If you are having pain, stop. Return to the Emergency Room if you have trouble breathing, walking or nausea and vomiting. Medications: Resume pre-procedure medication, unless otherwise directed. Hold the following medications for 48 hours post procedure: Actoplus MetGlucophageGlucophage XR GlucovanceAvandametFortamet Wdk-wexxjjydwDievsiAivo-snyqmdmyp GlumetzaJanumetMetaglip RiometGlycomet *Minimal pain, soreness and/or discomfort is expected. *You may take OTC non-steroidal anti-inflammatory to manage discomfort, unless contraindicated. If pain is not controlled with the above medications, contact your physician. Site Care: Do not remove dressing for 24 hours unless it becomes saturated, then replace. Keep site clean and dry; inspect site daily. Do not use any lotions, powders, or ointments at the groin or wrist site for 1 week. May shower 24 hours after the procedure. Clean site with soap and water. Pat dry and apply band aid. No tub baths, swimming or hot tubs for 3 days Post Procedure: Soreness and tenderness to the site can last up to one week. Bruising may occur to site. A responsible adult should be with you for the first 24 hours after you arrive home. Keep follow-up appointment. No smoking for 24 hours as it increases the risk of developing blood clots. If you are interested in smoking cessation, contact [facility] at [phone], ext. [phone]. In the event you are unable to reach your physician, please call [facility] at [phone] and the ferryboat operator cable will assist you. Seek Immediate Medical Care for: Bleeding: Apply continuous pressure to the site and Call 911. Should the arm or leg become cold, numb, blue or white call your physician immediately. Signs of infection are redness, warmth, swelling, increased tenderness, colored drainage, fever or chills Chest pain Follow Up Care 09/09/2023 12:19:35 With:Micheal PUGA Address: [address] [place], [place] [address] [address] [phone] Business (1) When: Unknown Comments:Keep scheduled appointment With:DELROY HERNANDEZ Address: [facility] [place] [address]- Business (1) When: Unknown [facility]10-30-2023 NoteProcedure The risk/benefits of the procedure were thoroughly explained the patient including specific attention to lack of onsite surgical backup, and written informed consent was obtained. Airway Assessment: Class II: Visualization of the soft palate, fauces, uvula Airway Abnormalities: none ASA Classification: ASA 2: A patient with mild systemic disease Risks/Benefits of IV Sedation: Have been explained IV Sedation Plan: Patient agrees to IV sedation plan_[facility] Comment on above:Result Comment: Electronically Signed By: EDD BERRY, Micheal Gifford\.br\Date and Time Signed: 09/23/23 06:42 [id number] Evaluation note* Encounter Date Diagnosis Assessment Notes Treatment Notes Treatment Clinical Notes Jun, Allergic contact dermatitis due to adhesives (ICD-10 - L23.1) [facility] Other 07-25-2023 Evaluation note* Encounter Date Diagnosis Assessment Notes Treatment Notes Treatment Clinical Notes May, Allergic contact dermatitis due to adhesives (ICD-10 - L23.1) Discussed exposures during the sleep study. PO steroids would work better than topical products. [facility] Other 06-15-2023 Evaluation note* Encounter Date Diagnosis Assessment Notes Treatment Notes Treatment Clinical Notes Apr, Sleep apnea (ICD-10 - G47.30) She has diagnoses of hypertension, paroxysmal atrial fibrillation, but BMI over 40, and increased neck circumference. These findings alone would give a significant risk of sleep apnea being present, even though the patient does not snore and does not have excessive daytime sleepiness. It is also possible that subclinical hypoventilation may be contributing, as hypoxia can trigger cardiac arrhythmias even without airway obstruction being fully present. The only way to clarify the situation is with polysomnography. The [place] [employer]'s position statement on home sleep testing states home sleep testing is contraindicated in patients with minimal sleep apnea symptoms or low pretest probability, so polysomnography is recommended. She will return after testing to review results Apr, Paroxysmal atrial fibrillation (ICD-10 - I48.0) Recurrence rates after cardioversion are nearly doubled in atrial fibrillation patients with untreated BUD, so controlling the patient''s sleep apnea could have positive effects. In addition rate control tends to be easier when total adrenergic load is decreased with controlled apnea. Apr, Essential hypertension (ICD-10 - I10) Control of sleep apnea will frequently have a positive effect on blood pressure control, and may additionally reduce blood pressure lability. Apr, BMI 40.0-44.9, adult (ICD-10 - Z68.41) Weight reduction would be broadly beneficial for overall health, but would also have direct benefits on apnea severity and sleep quality. Even moderate weight reduction can affect BUD and snoring, and in some patients weight reduction can completely resolve sleep apnea [facility] Other 05-01-2023 Hospital Discharge instructions Follow Up Care 03/25/2023 15:26:37 With:Edd BERRY, Micheal Gifford Address: [address] [place] [phone] When: Unknown [facility]05-01-2023 Evaluation + Plan note Future Scheduled Tests Laboratory* T4 & TSH 03/25/23 * Lipid Panel 05/02/22 [facility]05-01-2023 Evaluation + Plan note Future Scheduled Tests Laboratory* T4 & TSH 03/25/23 [facility]04-19-2023 Hospital Discharge instructions Patient Education 03/13/2023 12:13:46 CV - Cardioversion (Custom) [place], [place] CARDIOVERSION AFTER THE PROCEDURE: DIET: Resume pre-procedure diet as tolerated ACTIVITY: You should have someone stay with you for the next [address], make important decisions, drink alcohol or operate machinery for the next 24 hours. Limit your activity for 48 hours after the procedure or as directed by your health care provider. MEDICATIONS: Resume pre-procedure medications, unless otherwise directed. Triamincinolone cream can be applied as needed every hour. POST-PROCEDURE: It is expected to have some redness on the skin where the shocks were delivered. Check/feel your pulse throughout the days following your procedure It is possible for your heart to return to an abnormal heart rhythm within hours or days after the procedure. Avoid or minimize caffeine and other stimulants as directed by your health care provider. Keep follow up appointment In the event you are unable to reach your planting machine operator, please call [facility] at [phone] and the ferryboat operator cable will assist you in contacting your physician. SEEK MEDICAL CARE IF: You feel like your heart is beating too fast or your pulse is not regular. You have any questions about your medications. You have bleeding that will not stop. You are dizzy or feel faint. It is hard to breathe or you feel short of breath. There is a change in discomfort in your chest. Your speech is slurred or you have trouble moving an arm or leg on one side of your body. You get a serious muscle cramp that does not go away. Your fingers or toes turn cold or blue. Follow Up Care 03/12/2023 01:20:41 With:Micheal Puga Address: [address] [place] [phone]- [phone] Business (1) When: Unknown With:DELROY HERNANDEZ Address: [address] [place], [place] [phone] Business (1) When:03/19/2023 08:30:00 [facility]04-19-2023 Evaluation + Plan noteExtracted from: Title:Discharge Note Author:PIETER BERRY, Giorgi Lg e:03/13/23 stable Discharge To, Anticipated II - Home independently Home Prescriptions Metamucil 525 mg oral capsule, 1050 mg= 2 cap(s), Oral, Daily, 1 refills Toprol XL 50 mg Tab-ER, 50 mg= 1 tab(s), Oral, Daily, 1 refills Xarelto 20 mg oral tablet, 20 mg= 1 tab(s), Oral, Daily, 5 refills Home hydrochlorothiazide 12.5 mg Tab, 12.5 mg= 1 tab(s), Oral, Daily hydrochlorothiazide 25 mg oral tablet, 12.5 mg= 0.5 tab(s), Oral, Daily Imitrex 25 mg Tab, 25 mg= 1 tab(s), Oral, As Directed, PRN levothyroxine 75 mcg (0.075 mg) Tab, 75 mcg= 1 tab(s), Oral, Daily meloxicam 7.5 mg oral tablet, 7.5 mg= 1 tab(s), Oral, Daily multivitamin, 1 tab, Oral, Daily Pantoprazole [address] Tab, 40 mg= 1 tab(s), Oral, Daily pantoprazole 40 mg Oral EC Tab, 40 mg= 1 tab(s), Oral, Daily SUMAtriptan 25 mg Tab Synthroid 75 mcg (0.075 mg) Tab, 75 mcg= 1 tab(s), Oral Tylenol 8 HR Arthritis Pain, 2 tab(s), Oral, q12hr With When Contact Information DELROY DAVID 03/19/2023 08:30 AM EDT [address] [place], [place] [id number] Business (1) Additional Instructions: Micheal Puga [address] [place] [phone] Business (1) Additional Instructions: CV - Cardioversion (Custom) discharge time >30 min Extracted from: Title:Consult Note Author:Syd BERRY, Lamberto Healy Date:03/12/23 Will schedule patient for di rect-current cardioversion tomorrow. We have increased metoprolol. She has been on Xarelto. 1. Atrial fibrillation with RVR (I48.91: Unspecified atrial fibrillation) 2. HTN (hypertension) (I10: Essential (primary) hypertension) 3. Hypothyroidism (E03.9: Hypothyroidism, unspecified) 4. Morbid obesity (E66.01: Morbid (severe) obesity due to excess calories) Extracted from: Title:Admission H & P Author:Isabell Juarez MD Date:03/12/23 1. Atrial fibrillation with RVR (I48.91: Unspecified atrial fibrillation) PAF present. Normal Echo and Stress test in past year Home meds include Metoprolol, Xarelto Currently rate controlled on Cardizem drip, but remains in Atrial fib Consult to [facility] Cardiology 2. HTN (hypertension) (I10: Essential (primary) hypertension) Controlled 3. Hypothyroidism (E03.9: Hypothyroidism, unspecified) Levthyroxine Check TSH, T4 4. Morbid obesity (E66.01: Morbid (severe) obesity due to excess calories) BMI 40 Extracted from: Title:ED Note Author:Whit Landry M.D. te:03/12/23 1. Atrial fibrillation with RVR (I48.91: Unspecified atrial fibrillation) 2. Dizziness (R42: Dizziness and giddiness) Orders: diltiazem, 15 mg = 3 mL, Soln-IV, IV Push, Once, Stop date 03/12/23 2:48:00 EDT, NOW, Start date 03/12/23 2:48:00 EDT, Infuse over 2 minute(s), 03/12/23 2:48:00 EDT diltiazem 100 mg [5 mg/hr] + Sodium Chloride 0.9% intravenous solution 100 mL, 100 mL, IV, 5 mL/hr, STAT, Start date 03/12/23 2:48:00 EDT, 20 hour(s), Total volume (mL): 100, 5-15 mg/hr, Titrate per protocol, 113.5 kg metoprolol, 5 mg = 5 mL, Injection, IV Push, Once, Stop date 03/12/23 1:29:00 EDT, STAT, Start date 03/12/23 1:29:00 EDT, 03/12/23 1:29:00 EDT metoprolol, 5 mg = 5 mL, Injection, IV Push, Once, Stop date 03/12/23 2:19:00 EDT, STAT, Start date 03/12/23 2:19:00 EDT, 03/12/23 2:19:00 EDT Automated Diff B-Type Natriuretic Peptide Basic Metabolic Panel Capillary Glucose POC CBC w/ Auto Diff ECG 12 Lead Adult ED Cardiac Monitoring ED Physician consult Hospitalist for continued care eGFR Magnesium Level Oxygen Saturation Oxygen Therapy PT & PTT Saline Lock Insert Troponin 0 Hr. Troponin 3 Hr. Troponin 6 Hr. Troponin 9 Hr. XR Chest Single View Future Appointments Appointment Date:07/08/2023 08:45:00 AM Scheduled Provider:April CHILDERS CNP Location:[facility].Cardiology Clinic Appointment Type:Cardiology Follow Up (FT) Future Scheduled Tests Laboratory* Lipid Panel 05/02/22 [facility]02-17-2023 Evaluation note* Encounter Date Diagnosis Assessment Notes Treatment Notes Treatment Clinical Notes Dec, Barretts esophagus (ICD-10 - K22.70) Hopefully with adequate weight loss her GERD symptoms can improve however she may still need long-term use of a PPI due to her history of Swanson's esophagus. Dec, Obesity, Class III, BMI 40-49.9 (morbid obesity) (ICD-10 - E66.01) After patient provider discussion I do feel that it is appropriate to start Ozempic and keep her at the very lowest dose of 0.25 mg once weekly. We may discuss increasing dose at a later date. She was receiving positive benefits of better appetite control, decrease cravings for sweets and weight loss on the short time she was on it. We discussed how this can also provide some cardiovascular benefit as well. Follow-up in 6 to 8 weeks. Patient to call with issues in the interim. Okay to stay on metformin as these can work in combination with each other. If she has any adverse side effects metformin would be the first medication of the discontinued. Dec, GERD (gastroesophageal reflux disease) (ICD-10 - K21.9) Dec, Hypothyroidism (ICD-10 - E03.9) Dec, Hypertension (ICD-10 - I10) Blood pressure well within normal limits today. Reinforced adequate weight loss and how this can help improve blood pressure as well. We also touched on the fact that with weight loss she may not need as much blood pressure medication but not to titrate anything without the guidance of her planting machine operator. Dec, Atrial fibrillation (ICD-10 - I48.91) Dec, Encounter for weight management (ICD-10 - Z76.89) [facility] 01-13-2023 Evaluation note* Encounter Date Diagnosis Assessment Notes Treatment Notes Treatment Clinical Notes Nov, Barretts esophagus (ICD-10 - K22.70) With history of Swanson's esophagus and GERD at baseline she has not tolerated either GLP-1 medication. We will go ahead and discontinue these. Explained that increased GERD could be a side effect as medications to slow the digestive tract down. Patient verbalizes understanding Nov, Obesity, Class III, BMI 40-49.9 (morbid obesity) (ICD-10 - E66.01) Although patient has lost another 2.6 pounds over the last month on Victoza we have decided after patient provider discussion to seek alternatives due to adverse side effects of severe GERD. Instructed patient to go ahead and stop the Victoza. We discussed alternatives and why some are contraindicated such as phentermine due to her A. fib and patient is also on diuretics. We discussed considering Wellbutrin naltrexone combination or metformin. Patient is comfortable trying metformin as she has been on it before in her 20s for fertility improvement and tolerated it well at that time. We discussed how metformin can negatively affect vitamin B12 and would ideally like to check this. Patient is open to this and a BMP which she will obtain fasting so we can get accurate fasting glucose level. We discussed risks and benefits as well as side effects such as diarrhea she may expect. We can titrate to highest tolerated dose. Nov, GERD (gastroesophageal reflux disease) (ICD-10 - K21.9) We discussed GERD inducing foods and beverages. Handout given with red, yellow and green light foods to experiment with. Nov, Hypothyroidism (ICD-10 - E03.9) Nov, Hypertension (ICD-10 - I10) Blood pressure is well within normal limits today. We will continue to monitor throughout the course of program. Nov, Atrial fibrillation (ICD-10 - I48.91) She denies any new symptoms or medication changes since last visit. She anticipates a follow-up in December with her planting machine operator. We will follow Nov, Encounter for weight management (ICD-10 - Z76.89) [facility] 12-07-2022 Evaluation note* Encounter Date Diagnosis Assessment Notes Treatment Notes Treatment Clinical Notes Oct, Barretts esophagus (ICD-10 - K22.70) Oct, Obesity, Class III, BMI 40-49.9 (morbid obesity) (ICD-10 - E66.01) Unfortunately patient did not tolerate Ozempic even at the lowest dose due to adverse side effects of nausea and constipation. She did however find that she had decrease cravings for sweets and much less hunger allowing her to a better portion control. We discussed alternatives such as Victoza although it is a similar GLP-1 medication it is a different molecule and potential for better tolerability. Patient is open to a trial of this we will increase dosage slowly keeping on the initial dosage of 0.6 for 2 weeks and increasing to 1.2 and holding at that dose. Start Victoza, discontinue Ozempic Patient is working on incorporating better exercise into her routine She needs to reschedule her initial dietitian visit Focus on increasing the amount of times she uses the plate method Oct, GERD (gastroesophageal reflux disease) (ICD-10 - K21.9) Patient has baseline reflux disease that was likely increased with the initiation of medication. We discussed decreasing GERD inducing foods and she is to work with dietitian on an individual basis for both weight loss and GERD improvement. Oct, Hypothyroidism (ICD-10 - E03.9) We will follow-up with PCP on thyroid labs Oct, Hypertension (ICD-10 - I10) Blood pressure well controlled in office today. She is on blood pressure medication at baseline. Hopefully with some adequate weight loss of 10% or so these numbers can improve. She may however still need medications for A. fib and rate control. Oct, Atrial fibrillation (ICD-10 - I48.91) In discussing alternatives today we did discuss how any medications containing phentermine would be an appropriate for this patient. She verbalizes understanding Oct, Encounter for weight management (ICD-10 - Z76.89) [facility] 10-26-2022 Evaluation note* Encounter Date Diagnosis Assessment Notes Treatment Notes Treatment Clinical Notes Aug, Barretts esophagus (ICD-10 - K22.70) Aug, Obesity, Class III, BMI 40-49.9 (morbid obesity) (ICD-10 - E66.01) Findings consistent with obesity. Patient understands that this increases risk of multiple comorbidities associated with weight gain especially if there is a genetic component. Discussed importance of adopting a healthier lifestyle including better diet choices as well as incorporating some type of activity and exercise In order to decrease or eliminate risk of impending diseases associated with excessive weight.. Treat with weight loss Aug, GERD (gastroesophageal reflux disease) (ICD-10 - K21.9) Patient does suffer from GERD likely related to increased weight especially central obesity. Treat with weight loss and dietary changes. With weight loss patient could achieve complete relief from GERD symptoms due to increased intraabdominal pressure with the goal of being weaned off of medication. Patient to work closely with dietitian to help make healthy dietary choices and avoid reflux inducing foods. Briefly discussed these including avoiding citrus, high fat dairy, high fat meats and beverages including alcohol and coffee. Aug, Hypothyroidism (ICD-10 - E03.9) Patient does have history of hypothyroidism with current treatment on Synthroid. Most recent TSH from June 2022 was within normal limits. We discussed the role of thyroid on weight. We will monitor throughout the course of program Aug, Hypertension (ICD-10 - I10) Patient has history of hypertension. Blood pressure reading within normal limits today. Treat with low-salt diet, decreased processed and restaurant foods, healthy lifestyle changes and achieve long-term weight loss. Encouraged to monitor outside of the office setting Aug, Atrial fibrillation (ICD-10 - I48.91) Patient does have history of atrial fibrillation and subsequently on a blood thinner. She has gotten clearance from her provider without limits to her activity. We discussed the role of beta-shira sometimes being a weight positive medication however patient is on a very low-dose half tab 25 mg twice daily. She has found that without that she does end up going into irregular heart rhythm. We discussed risk versus benefit. [facility] 09-13-2022 Evaluation note* Encounter Date Diagnosis Assessment Notes Treatment Notes Treatment Clinical Notes Jul, Contact with and (suspected) exposure to covid-19 (ICD-10 - Z20.822) covid pos, see above. Jul, COVID (ICD-10 - U07.1) Informed pt of POS covid test. They are to contact the covid employee hotline regarding quarantine and RTW instructions. Pt understood and agreed to tx plan. [facility] 06-03-2022 Evaluation + Plan noteExtracted from: Title:ED Note Author:Daniel Barillas DO Date :04/27/22 Atrial fibrillation with RVR (I48.91: Unspecified atrial fibrillation) Dyspnea (R06.00: Dyspnea, unspecified) Orders: diltiazem, 20 mg = 4 mL, Soln-IV, IV Push, Once, Stop date 04/27/22 5:18:00 EDT, STAT, Start date 04/27/22 5:18:00 EDT, 04/27/22 5:18:00 EDT Sodium Chloride 0.9% intravenous solution, 1,000 mL, Soln-IV, IV, Once, Stop date 04/27/22 5:18:00 EDT, STAT, Start date 04/27/22 5:18:00 EDT, Infuse over 61, minute(s) Automated Diff Basic Metabolic Panel CBC w/ Auto Diff ECG 12 Lead Adult ECG 12 Lead Adult ED Cardiac Monitoring eGFR Magnesium Level PT & PTT Pulse Oximetry Troponin 0 Hr. Troponin 3 Hr. Troponin 6 Hr. XR Chest Single View Addendum by Nilesh Kiser DO on April 27, 2022 09:26:08 EDT Patient signed out to me by Dr. Barillas with a 3-hour troponin pending. Patient seen and examined at the bedside. She is in no distress. She endorses no chest pain, shortness of breath. Repeat troponin is mildly elevated. Repeat EKG without ischemic pattern. Patient remains asymptomatic and in normal sinus rhythm. Case was discussed with her planting machine operator Dr. Puga. After discussion of the patient's history, presentation, diagnostic work-up, and repeat troponin value we agree that the patient is appropriate for discharge home at this time. Patient will follow-up in office with Dr. Puga. Return precautions were discussed. Patient agrees with this plan. Nilesh Kiser DO Future Appointments Appointment Date:05/02/2022 03:15:00 PM Scheduled Provider:Micheal Puga MD Location:.Cardiology Clinic Appointment Type:Cardiology ED Follow Up (FT) [facility]06-03-2022 Hospital Discharge instructions Patient Education 04/27/2022 09:42:47 Atrial Fibrillation Atrial Fibrillation Atrial fibrillation is a type of irregular or rapid heartbeat (arrhythmia). In atrial fibrillation,the top part of the heart (atria) quivers in a chaotic pattern. This makes the heart unable to pumpblood normally. Having atrial fibrillation can increase your risk for other health problems, such as: Blood can pool in the atria and form clots. If a clot travels to the brain, it can cause a stroke. The heart muscle may weaken from the irregular blood flow. This can cause heart failure. Atrial fibrillation may start suddenly and stop on its own, or it may become a long-lasting problem. What are the causes? This condition is caused by some heart-related conditions or procedures, including: High blood pressure. This is the most common cause. Heart failure. Heart valve conditions. Inflammation of the sac that surrounds the heart (pericarditis). Heart surgery. Coronary artery disease. Certain heart rhythm disorders, such as Rodriguez Parkinson White syndrome. Other causes include: Pneumonia. Obstructive sleep apnea. Lung cancer. Thyroid problems, especially if the thyroid is overactive (hyperthyroidism). Excessive alcohol or drug use. Sometimes, the cause of this condition is not known. What increases the risk? This condition is more likely to develop in: Older people. People who smoke. People who have diabetes mellitus. People who are overweight (obese). Athletes who exercise vigorously. People who have a family history. What are the signs or symptoms? Symptoms of this condition include: A feeling that your heart is beating rapidly or irregularly. A feeling of discomfort or pain in your chest. Shortness of breath. Sudden light-headedness or weakness. Getting tired easily during exercise. In some cases, there are no symptoms. How is this diagnosed? Your health care provider may be able to detect atrial fibrillation when taking your pulse. If detected, this condition may be diagnosed with: Electrocardiogram (ECG). Ambulatory child monitor. This device records your heartbeats for 24 hours or more. Transthoracic echocardiogram (TTE) to evaluate how blood flows through your heart. Transesophageal echocardiogram (MONTSERRAT) to view more detailed images of your heart. A stress test. Imaging tests, such as a CT scan or chest X-ray. Blood tests. How is this treated? This condition may be treated with: Medicines to slow down the heart rate or bring the heart's rhythm back to normal. Medicines to prevent blood clots from forming. Electrical cardioversion. This delivers a low-energy shock to the heart to reset its rhythm. Ablation. This procedure destroys the part of the heart tissue that sends abnormal signals. Left atrial appendage occlusion/excision. This seals off a common place in the atria where blood clots can form (left atrial appendage). The goal of treatment is to prevent blood clots from forming and to keep your heart beating at a normal rate and rhythm. Treatment depends on underlying medical conditions and how you feel when you are experiencing fibrillation. Follow these instructions at home: Medicines Take over-the counter and prescription medicines only as told by your health care provider. If your health care provider prescribed a blood-thinning medicine (anticoagulant), take it exactly as told. Taking too much blood-thinning medicine can cause bleeding. Taking too little can enable a blood clot to form and travel to the brain, causing a stroke. Lifestyle Do not use any products that contain nicotine or tobacco, such as cigarettes and e-cigarettes. If you need help quitting, ask your health care provider. Do not drink beverages that contain caffeine, such as coffee, soda, and tea. Follow diet instructions as told by your health care provider. Exercise regularly as told by your health care provider. Do not drink alcohol. General instructions If you have obstructive sleep apnea, manage your condition as told by your health care provider. Maintain a healthy weight. Do not use diet pills unless your health care provider approves. Diet pills may make heart problems worse. Keep all follow-up visits as told by your health care provider. This is important. Contact a health care provider if you: Notice a change in the rate, rhythm, or strength of your heartbeat. Are taking an anticoagulant and you notice increased bruising. Tire more easily when you exercise or exert yourself. Have a sudden change in weight. Get help right away if you have: Chest pain, abdominal pain, sweating, or weakness. Difficulty breathing. Blood in your vomit, stool (feces), or urine. Any symptoms of a stroke. BE FAST is an easy way to remember the main warning signs of a stroke: ?B - Balance. Signs are dizziness, sudden trouble walking, or loss of balance. ?E - Eyes. Signs are trouble seeing or a sudden change in vision. ?F - Face. Signs are sudden weakness or numbness of the face, or the face or eyelid drooping on oneside. ?A - Arms. Signs are weakness or numbness in an arm. This happens suddenly and usually on one side of the body. ?S - Speech. Signs are sudden trouble speaking, slurred speech, or trouble understanding what people say. ?T - Time. Time to call emergency services. Write down what time symptoms started. Other signs of a stroke, such as: ?A sudden, severe headache with no known cause. ?Nausea or vomiting. ?Seizure. These symptoms may represent a serious problem that is an emergency. Do not wait to see if the symptoms will go away. Get medical help right away. Call your local emergency services (911 in the [place] Do not drive yourself to the hospital. Summary Atrial fibrillation is a type of irregular or rapid heartbeat (arrhythmia). Symptoms include a feeling that your heart is beating fast or irregularly. In some cases, you may not have symptoms. The condition is treated with medicines to slow down the heart rate or bring the heart's rhythm back to normal. You may also need blood-thinning medicines to prevent blood clots. Get help right away if you have symptoms or signs of a stroke. This information is not intended to replace advice given to you by your health care provider. Make sure you discuss any questions you have with your health care provider. Document Released: 11/11/2006 Document Revised: 01/01/2019 Document Reviewed: 01/02/2019 [employer] Patient Education [employer]. Follow Up Care 04/27/2022 05:01:24 With:Micheal Puga Address: [address] [place] [phone] Business (1) When:04/30/2022 09:42:28 Comments:Seek immediate medical attention if you develop: worsening chest pain, new chest pain, nausea, vomiting, weakness, numbness, tingling, excessive sweating, shortness of breath, difficulty breathing, loss of motion in your arms or legs, or any new or worsening symptoms.Take your blood thinner as prescribed previously. With:DELROY HERNANDEZ Address: [address] [place] [phone] Business (1) When:04/30/2022 09:42:19 Comments:Call the office of your primary care doctor to arrange for follow-up within the above-stated timeframe. Follow-up with your primary care doctor about this ED visit. You should review your labs, imaging, and diagnoses from this ED visit with your primary care physician. If you were prescribed medications you should discuss possible side-effects and drug interactions with your pharmacist. Call 911 or go to the nearest Emergency Department if you develop any new or worsening symptoms. [facility]04-27-2022 Evaluation note* Encounter Date Diagnosis Assessment Notes Treatment Notes Treatment Clinical Notes Feb, Left hip pain (ICD-10 - M25.552) Feb, Trochanteric bursitis of left hip (ICD-10 - M70.62) Feb, Other Patient is done fantastic with her hip bursitis treatment and maintains her home exercise program. At this time recommended she continue using her home regimen and call me if she needs anything in the future. [facility] Other 01-26-2022 Evaluation note* Encounter Date Diagnosis Assessment Notes Treatment Notes Treatment Clinical Notes Nov, Left hip pain (ICD-10 - M25.552) Nov, Trochanteric bursitis of left hip (ICD-10 - M70.62) Patient was prepped and cortisone was injected into the greater trochanteric bursa under sterile conditions. Patient tolerated injection well with no adverse reactions. Patient was given a formal order for therapy. Nov, Other 1. We had a long discussion with the patient today concerning their left hip bursitis. I explained to them that this is a chronic diagnosis and may require several rounds of physical therapy and/or injections. 2. Tylenol: Discussed taking Tylenol (acetaminophen). Recommended adjusting their dosing to 1000mg by mouth up to 3 times a day. 3. NSAIDs: Recommended continuing her meloxicam as previously prescribed 4. Physical therapy: Discussed formal physical therapy and home regimen. Patient preferred formal physical therapy. 5. Injections: Discussed injections as a treatment option. After consent was obtained, the left hip greater trochanteric bursa was injected with 3cc kenalog and 7cc bupivicaine using sterile technique. Patient tolerated the injection well. 6. In regards to the left hip x-ray findings from October, I recommended that we continue to just monitor this with serial exams as well as serial x-rays. Furthermore, I do not appreciate the same findings on the most recent x-ray. If at any point in the future we have any question or concern regarding etiology of her hip pain, which currently is very consistent with greater trochanteric bursitis, and we will get an MRI of the left hip/femur. 7. Follow up 3 months [facility] Other 10-19-2021 Evaluation note* Encounter Date Diagnosis Assessment Notes Treatment Notes Treatment Clinical Notes Aug, Barretts esophagus (ICD-10 - K22.70) REPEAT EGD IN JANUARY 2022 Aug, Fundic gland polyps of stomach, benign (ICD-10 - D13.1) Aug, Personal history of colonic polyps (ICD-10 - Z86.010) [facility] Other Evaluation + Plan note Future Appointments Appointment Date:06/12/2022 03:15:00 PM Scheduled Provider:Micheal Puga MD Location:[facility]Cardiology Clinic Appointment Type:Cardiology Follow Up (FT) Future Scheduled Tests Laboratory* Lipid Panel 05/02/22 Radiology* NM Myocardial Spect Rest/Stress 1 Day 05/02/22 * Echo Transthoracic [facility] Future App[facility]ments Appointment Date:01/11/2023 03:45:00 PM Scheduled Provider:Micheal Puga MD Location:[facility] Appointment Type:Cardiology Follow Up ([facility]) Future Scheduled Tests Laboratory* Lipid [facility] Future Appointments Appointment Date:07/08/2023 08:45:00 AM Scheduled Provider:April CHILDERS CNP Location:[facility] Appointment Type:Cardiology Follow Up (FT) Future Scheduled Tests Laboratory* Lipid [facility] Future Appointments Appointment Date:04/08/2023 08:45:00 AM Scheduled Provider:April CHILDERS CNP Location:[facility] Appointment Type:Cardiology Follow Up (FT) Appointment Date:05/01/2023 11:45:00 AM Scheduled Provider:Micheal Puga MD Location[facility] Appointment Type:Cardiology Follow Up (FT) Appointment Date:07/08/2023 08:45:00 AM Scheduled Provider:April CHILDERS CNP Location:.[facility]iology Clinic Appointment Type:Cardiology Follow Up (FT) Future Scheduled Tests Laboratory* T4 & TSH 03/25/23 * [facility]id [facility] Future Appointments Appointment Date:05/01/2023 11:45:00 AM Scheduled Provider:Micheal Puga MD Location:[facility] Appointment Type:Cardiology Follow Up (FT) Appointment Date:07/08/2023 08:45:00 AM Scheduled Provider:April CHILDERS CNP Location:[facility] Appointment Type:Cardiology Follow Up (FT) Future Scheduled Tests Laboratory* T4 & TSH 03/25/23 * Lipid [facility] Future Appointments Appointment Date:10/29/2023 03:45:00 PM Scheduled Provider:Micheal PUGA MD Location:.[facility]iology Clinic Appointment Type:Cardiology Follow Up (FT) Future Scheduled Tests Laboratory* T4 & TSH [facility] Future Appointments Appointment Date:09/26/2023 09:30:00 AM Scheduled Provider: Location:.CARDIO Appointment Type:PUL Pulmonary Function Test (FT) Appointment Date:10/02/2023 09:15:00 AM Scheduled Provider:Darrick Castillo MD Location:.Pulmonary Clinic Appointment Type:Pulmonary New Patient (FT) Appointment Date:10/29/2023 03:45:00 PM Scheduled Provider:Micheal UPGA MD Location:[facility] Appointment Type:Cardiology Follow Up (FT) Future Scheduled Tests Laboratory* T4 & TSH [facility] Future Appointments Appointment Date:10/02/2023 09:15:00 AM Scheduled Provider:Darrick Castillo MD Location:[facility] Appointment Type:Pulmonary New Patient (FT) Appointment Date:10/29/2023 03:45:00 PM Scheduled Provider:Micheal PUGA MD Location:.[facility]iology Clinic Appointment Type:Cardiology Follow Up (FT) Future Scheduled Tests Laboratory* T4 & TSH [facility] Future Appointments Appointment Date:10/14/2023 07:30:00 AM Scheduled Provider: Location:.CARDIO Appointment Type:PUL Methacholine Test (FT) Appointment Date:10/29/2023 03:45:00 PM Scheduled Provider:Micheal PUGA MD Location:[facility] Appointment Type:Cardiology Follow Up (FT) Appointment Date:11/15/2023 10:00:00 AM Scheduled Provider:[place] MD, Bashar X Location:[facility] Appointment Type:Pulmonary Follow Up (FT) Future Scheduled Tests Laboratory* T4 & TSH [facility]25[facility]23 [facility] assessment information available [facility] Work Phone: Evaluation noteNo InformationNort Jobber Other Evaluation note* Diagnosis Onset Date Resolution Status Dyspnea on exertion acute Essential hypertension acute BUD (obstructive sleep apnea) acute Palpitations acute Paroxysmal atrial fibrillation acute [facility] Work Phone: Evaluation note* Diagnosis Onset Date Resolution Status Dyspnea on exertion acute Essential hypertension acute BUD (obstructive sleep apnea) acute Palpitations acute Paroxysmal atrial fibrillation acute Dyspnea on exertion acute Essential hypertension acute BUD (obstructive sleep apnea) acute Palpitations acute Paroxysmal atrial fibrillation acute Left knee pain acute [facility] Work Phone: Evaluation note* Diagnosis Onset Date Resolution Status Dyspnea on exertion acute Essential hypertension acute BUD (obstructive sleep apnea) acute Palpitations acute Paroxysmal atrial fibrillation acute Dyspnea on exertion acute Essential hypertension acute BUD (obstructive sleep apnea) acute Palpitations acute Paroxysmal atrial fibrillation acute Left knee pain acute Left knee pain acute Left knee pain acute Primary osteoarthritis of left knee acute [facility] Work Phone: Evaluation note* Diagnosis Onset Date Resolution Status Left knee pain acute Left knee pain acute Left knee pain acute Primary osteoarthritis of left knee acute [facility] Work Phone: Evaluation note* Diagnosis Onset Date Resolution Status Dyspnea on exertion acute Essential hypertension acute BUD (obstructive sleep apnea) acute Palpitations acute Paroxysmal atrial fibrillation acute Cervical pain (neck) acute Paroxysmal atrial fibrillation acute Wellness examination acute [facility] Work Phone: Evaluation note* Diagnosis Dyspareunia in female- Primary Vaginal dryness Postmenopausal atrophic vaginitis Cystocele, midline Lichen sclerosus Circumscribed scleroderma Vulvar itching Hx of hysterectomy for benign disease Hx of BSO (bilateral salpingo-oophorectomy) documented in this encounter [facility] Diagnosis Onset Date Resolution Status Admit Date Hypothyroid acute June 30, 025 8:25am [facility] Work Phone: History and physical note Author Maria Isabel Larry [facility] Note Date/Time February 22, 2025 8:5 3am [facility] [address] [place] [address] Gastroenterology H&P Signed Patient: Hanna Harris MR#: [id number] : 1965 Acct:[id number] Age/Sex: 59 / F Adm Date: 5 Loc: Room: Type: [facility] Attending Dr: Maria Isabel Larry DO Copies to: DO Delroy Loo MD~ Date of Service: 02/22/2025 HISTORY & PHYSICAL: Patient's history with special attention to the cardiovascular, pulmonary systems and the current problem was reviewed with the patient immediately prior to the procedure. Present medications and doses reviewed in the EMR. Allergies and pertinent laboratory tests were also reviewedat this time in the EMR. The physical examination, as below, was then performed. Indication, assessment and HPI: 59-year-old female who presents for EGD for personal history of Swanson's esophagus and GERD. Patient takes Protonix once daily. Last EGD in [address] Galvan. Family history of GI malignancy? No PHYSICAL EXAMINATION General appearance: cooperative, NAD Skin: No jaundice, no rash or lesions Head: NCAT Eyes: Anicteric Neck: Supple Lungs: Normal respiratory effort, no use of accessory muscles Abdomen: Soft, nondistended Neuro: No focal deficits, Ox3. REVIEW OF SYSTEMS Constitutional: Denies malaise, fevers Cardiovascular: Denies chest pain, palpitations Respiratory: Denies shortness of breath, wheezing Gastrointestinal: As per HPI Genitourinary: Denies dysuria, polyuria Musculoskeletal: Denies joint swelling, joint stiffness Neurological: Denies confusion, numbness, tingling Endocrine: Denies fatigue Written informed consent obtained from the patient. Risks (including but not limited to perforation, infection, bloating, bleeding, need for emergent surgeryand loss of life), benefits and alternatives explained and questions answered. The patient verbalized understanding. Based on history patient is an appropriate candidate for the procedure. Maria Isabel Larry DO Present medication and doses reviewed in the EMR Documented By: Maria Isabel Larry DO 02/22/25 0758 Signed By: <Electronically signed by Maria Isabel Larry DO> 02/22/25 0758 [facility] Work Phone: Hisjhvl general Narrative - Reported* Type Description Date Medical History Hypothyroidism Medical History hypertension Medical History Esophageal reflux Surgical History tonsillectomy and adenoidectomy Surgical History cholecystectomy Surgical History hysterectomy Surgical History right hip replacement Hospitalization History see above [facility] Other History general Narrative - Reported* Type Description Date Medical History Hypothyroidism Medical History hypertension Medical History Esophageal reflux Medical History Barretts esophagus Surgical History tonsillectomy and adenoidectomy Surgical History cholecystectomy Surgical History hysterectomy Surgical History right hip replacement Surgical History EGD Hospitalization History see above [facility] Other Hisdonu general Narrative - Reported* Type Description Date Medical History Hypothyroidism Medical History hypertension Medical History Esophageal reflux Medical History Barretts esophagus Medical History cataracts Surgical History tonsillectomy and adenoidectomy Surgical History cholecystectomy Surgical History hysterectomy Surgical History right hip replacement Surgical History EGD Hospitalization History see above [facility] Other Hislaje general Narrative - Reported* Type Description Date Medical History Hypothyroidism Medical History hypertension Medical History Esophageal reflux Medical History Barretts esophagus Medical History cataracts Medical History ATRIAL FIBRILLATION Surgical History tonsillectomy and adenoidectomy Surgical History cholecystectomy Surgical History hysterectomy Surgical History right hip replacement Surgical History EGD Surgical History WISDOM TEETH Surgical History KERATOTOMY RIGHT EYE 04/15 Hospitalization History No Hospitalization histo ry information [facility] Other Histmpb general Narrative - Reported* Type Description Date Medical History Hypothyroidism Medical History hypertension Medical History Esophageal reflux Medical History Barretts esophagus Medical History cataracts Medical History ATRIAL FIBRILLATION Surgical History tonsillectomy and adenoidectomy Surgical History cholecystectomy Surgical History hysterectomy Surgical History right hip replacement Surgical History EGD Surgical History WISDOM TEETH Surgical History KERATOTOMY RIGHT EYE 04/15 Hospitalization History SEE SURGICAL HX [facility] Other Hisdfgh general Narrative - ReportedNortFlypeeps Other History general Narrative - Reported* Type Description Date Medical History Hypothyroidism Medical History hypertension Medical History Esophageal reflux Medical History Barretts esophagus Medical History cataracts Medical History ATRIAL FIBRILLATION Surgical History tonsillectomy and adenoidectomy Surgical History cholecystectomy Surgical History hysterectomy Surgical History right hip replacement Surgical History EGD Surgical History WISDOM TEETH Surgical History KERATOTOMY RIGHT EYE 04/15 Surgical History Cardio adversion 02/2023 Hospitalization History SEE SURGICAL HX [facility] [employer] Other Hospital course Narrative No data available for this section [facility] No data available for this section [facility] No data available for this section [facility] (narrative)No reason for referral [facility] Work Phone: Summary Purpose Family History Relationship Condition Age at Onset Recorded Date/T roney Not Specified Malignant neoplasm of breast Unknown father Myocardial infarction Unknown Relationship Condition Age at Onset Recorded Date/T roney father Malignant neoplasm Unknown Unknown Heart disease Unknown Malignant neoplasm of oral cavity Unknown grandparent Unknown Not Specified Hypertension Unknown Malignant neoplasm Unknown Malignant neoplasm of breast Unknown Diabetes mellitus Unknown Relationship Condition Age at Onset Recorded Date/T roney father Malignant neoplasm Unknown Unknown Heart disease Unknown Malignant neoplasm of oral cavity Unknown grandparent Unknown mother Hypertension Unknown Malignant neoplasm Unknown Malignant neoplasm of breast Unknown Diabetes mellitus Unknown Advance Directives Advance Directive Response Recorded Date/ Time Advance Directives No July 9:24am Advance Directive Response Recorded Date/ Time Advance Directives No July 8:24am Chief Complaint and Reason for Visit Chief Complaint I48.0 E78.5 Pillars Chief Complaint Pillars Obesity Z12.31 Chief Complaint Obesity Z12.31 r92.8 Chief Complaint Z12.31 r92.8 Obesity labs Chief Complaint Obesity Fatigue Chief Complaint Fatigue Unspecified sleep apnea Chief Complaint Unspecified sleep ap jayant Chief Complaint Pillars Chief Complaint S96.641 Pillars Screening Chief Complaint History of Afib Reason for Visit Dyspnea on exertion Essential hypertension BUD (obstructive sleep apnea) Palpitations Paroxysmal atrial fibrillation Chief Complaint History of Afib I48.91 I10 R00.2 Reason for Visit Dyspnea on exertion Essential hypertension BUD (obstructive sleep apnea) Palpitations Paroxysmal atrial fibrillation Chief Complaint History of Afib I48.91 I10 R00.2 4 week follow testing left knee pain M25.562 Reason for Visit Dyspnea on exertion Essential hypertension BUD (obstructive sleep apnea) Palpitations Paroxysmal atrial fibrillation Dyspnea on exertion Essential hypertension BUD (obstructive sleep apnea) Palpitations Paroxysmal atrial fibrillation Left knee pain Chief Complaint History of Afib I48.91 I10 R00.2 4 week follow testing left knee pain M25.562 left knee injury M25.562 - Pain in left knee OP SP LT KNEE PAIN WX [facility] Reason for Visit Dyspnea on exertion Essential hypertension BUD (obstructive sleep apnea) Palpitations Paroxysmal atrial fibrillation Dyspnea on exertion Essential hypertension BUD (obstructive sleep apnea) Palpitations Paroxysmal atrial fibrillation Left knee pain Left knee pain Left knee pain Primary osteoarthritis of left knee Chief Complaint left knee pain M25.562 left knee injury M25.562 - Pain in left knee OP SP LT KNEE PAIN WX [facility] L knee OA Reason for Visit Left knee pain Left knee pain Left knee pain Primary osteoarthritis of left knee Chief Complaint L knee OA 4 months Pillars z78.0 Pillars z12.31 Reason for Visit Dyspnea on exertion Essential hypertension BUD (obstructive sleep apnea) Palpitations Paroxysmal atrial fibrillation Cervical pain (neck) Paroxysmal atrial fibrillation Wellness examination Chief Complaint Admit Date L knee OA July 23, 2024 5: 00pm 4 months September 02, 2024 8: 21am Pillars September 18, 2024 8 :26am z78.0 September 18, 2024 9 :40am Pillars September 18, 2024 1 :02pm z12.31 September 29, 2024 1 2:07pm M54.2 October 06, 2024 3:52pm Reason for Visit Admit Date Dyspnea on exertion September 02, 2024 8: 21am Essential hypertension September 02, 2024 8:21am BUD (obstructive sleep apnea) August 8:21am Palpitations September 02, 2024 8: 21am Paroxysmal atrial fibrillation September 022023 8:21am Cervical pain (neck) September 18, 2024 1:02pm Paroxysmal atrial fibrillation August 262023 1:02pm Wellness examination September 18, 2024 1:02pm Chief Complaint Admit Date swanson's February 22, 2025 7:0 3am swanson's February 22, 2025 7:5 8am Chief Complaint Admit Date 6mo March 16, 2025 12: 53pm Pillars May 27, 2025 7:46a m Reason for Visit Admit Date Dyspnea on exertion March 16, 2025 12: 53pm Essential hypertension March 16, 2025 12:53pm BUD (obstructive sleep apnea) February 12:53pm Paroxysmal atrial fibrillation February 12:53pm Chief Complaint Admit Date Pillars May 27, 2025 7:46a m Wellness/Pillars June 30, 2025 8:2 5am Reason for Visit Admit Date Hypothyroid June 30, 2025 8:2 5am Additional Source Comments INFORMATION SOURCE (unrecogn ized section and content) DATE CREATED AUTHOR 04/21/2022 [facility] DATE CREATED AUTHOR AUTHOR'S ORGANIZ ATION 08/16/2023 [facility] DATE CREATED AUTHOR AUTHOR'S ORGANIZ ATION [facility]20[facility] DATE CREATED AUTHOR AUTHOR'S ORGANIZ ATION 05/29/2025 [facility] DATE CREATED AUTHOR AUTHOR'S ORGANIZ ATION 06/04/2025 [facility] EPIC REASON FOR VISIT (unrecogniz ed section and content) Reason Comments sick visit Patient here today f or problem visit. Former Dr. Salhe pt. Patient reports vaginal dryness, painful intercourse upon insertion, vaginal and vulvar itching. Has hx of lichen sclerous that she was diagnosed in 2001. Patient states that she she tried [place] lubricants and [place] without relief. Would like a refill in [place]. Care Team (unrecognized sect ion and content) Team Status: Inactive Member Role Status Dates Delroy Hernandez MD Primary Care Provider Active Kurtis Tyler DO [facility] Attending Provider Active Team Status: Inactive Member Role Status Dates Delroy Hernandez MD Primary Care Provider Active Micheal Puga MD Attending Provider Active Team Status: Active Member Role Status Dates Delroy Hernandez MD Primary Care Provider Active Team Status: Inactive Member Role Status Dates Delmer Saleh Attending Provider Active Delroy Hernandez MD Primary Care Provider Active Team Status: Active Member Role Status Dates Delroy Hernandez MD Primary Care Provider Active Gina Gonzalez APRN Attending Provider Active Team Status: Inactive Member Role Status Dates Delroy Hernandez MD Primary Care Provider Active Delmer Saleh Attending Provider Active Team Status: Active Member Role Status Dates Delroy Hernandez MD Primary Care Provider Active Gina Gonzalez APRN Active Gina Gonzalez APRN Attending Provider Active Team Status: Inactive Member Role Status Dates Delroy Hernandez MD Primary Care Provider Active Gina Gonzalez APRN Attending Provider Active Team Status: Inactive Member Role Status Dates Delroy Hernandez MD Primary Care Provider Active Brijesh Cadena MD Attending Provider Active Micheal Puga MD Referring Provider Active Team Status: Inactive Member Role Status Dates Delroy Hernandez MD Primary Care Provider Active Brijesh Cadena MD Attending Provider Active Team Status: Active Member Role Status Dates Delroy Hernandez MD Primary Care Provider Active Jose Alfredo Sheffield II, MD Attending Provider Active Team Status: Inactive Member Role Status Dates Delroy Hernandez MD Primary Care Provider Active Jose Alfredo Sheffield II, MD Attending Provider Active Team Status: Inactive Member Role Status Dates Delroy Hernandez MD Primary Care Provider, Referring P leslie Active Referral Self Attending Provider Active Team Status: Inactive Member Role Status Dates Delroy Hernandez MD Primary Care Provider Active Start: March 19, 2024 End: March 19, 2024 Sachin Medina MD Attending Provider Activ e Start: March 19, 2024 End: March 19, 2024 Referral Self Referring Provider Active Start: A pri2023 End: March 19, 2024 Team Status: Inactive Member Role Status Dates Delroy Hernandez MD Primary Care Provider Active Start: March 19, 2024 End: March 19, 2024 Sachin Medina MD Attending Provider Activ e Start: March 19, 2024 End: March 19, 2024 Team Status: Inactive Member Role Status Dates Delroy Hernandez MD Primary Care Provider Active Start: April 09, 2024 End: April 09, 2024 Sachin Medina MD Attending Provider Activ e Start: April 09, 2024 End: April 09, 2024 Team Status: Active Member Role Status Dates Sachin Medina MD [employer] Active Delroy Hernandez MD Primary Care Provider Active Team Status: Inactive Member Role Status Dates Delroy Hernandez MD Primary Care Provider Active Start: April 28, 2024 End: April 28, 2024 Sachin Medina MD Attending Provider Activ e Start: April 28, 2024 End: April 28, 2024 Team Status: Inactive Member Role Status Dates Delroy Hernandez MD Primary Care Provide r, Attending Provider Active Start: May 26, 2024 End: May 26, 2024 Team Status: Inactive Member Role Status Dates Delroy Hernandez MD Primary Care Provider Active Start: June 05, 2024 End: June 05, 2024 Marlys Brar APRN Attending Provider Active Start: June 05, 2024 End: June 05, 2024 Team Status: Inactive Member Role Status Honorio Hernandez MD Primary Care Provider Active Start: June 12, 2024 End: June 12, 2024 Jose Alfredo Sheffield II, MD Attending Provider Active Start: June 12, 2024 End: June 12, 2024 Team Status: Inactive Member Role Status Dates Delroy Hernandez MD Primary Care Provider Active Start: July 23, 2024 End: July 23, 2024 Jose Alfredo Sheffield II, MD Attending Provider Active Start: July 23, 2024 End: July 23, 2024 Team Status: Inactive Member Role Status Honorio Hernandez MD Primary Care Provider Active Start: September 02, 2024 End: September 02, 2024 Sachin Medina MD Attending Provider Activ e Start: September 02, 2024 End: September 02, 2024 Team Status: Inactive Member Role Status Honorio Hernandez MD Primary Care Provider Active Start: September 18, 2024 End: September 18, 2024 Kurtis Rodriguez [facility] DO [facility] Attending Provider Active Start: September 18, 2024 End: September 18, 2024 Team Status: Inactive Member Role Status Honorio Hernandez MD Primary Care Provider Active Start: September 18, 2024 End: September 18, 2024 Delmer Saleh DO Attending Provider Active Start : September 18, 2024 End: September 18, 2024 Team Status: Inactive Member Role Status Honorio Hernandez MD Primary Care Provide r, Attending Provider Active Start: September 18, 2024 End: September 18, 2024 Team Status: Inactive Member Role Status Honorio Hernandez MD Primary Care Provider Active Start: September 29, 2024 End: September 29, 2024 Delmer Saleh DO Attending Provider Active Start : September 29, 2024 End: September 29, 2024 Team Status: Inactive Member Role Status Honorio Hernandez MD Primary Care Provide r, Attending Provider Active Start: October 06, 2024 End: October 06, 2024 Team Status: Inactive Member Role Status Honorio Hernandez MD Primary Care Provider Active Start: February 22, 2025 End: February 22, 2025 Maria Isabel Larry DO Attending Provider Active St art: February 22, 2025 End: February 22, 2025 Team Status: Active Member Role Status Dates Delroy Hernandez MD Primary Care Provider Active Start: February 22, 2025 Maria Isabel Larry DO Attending Provider, Other Provider Active Start: February 22, 2025 Team Status: Inactive Member Role Status Dates Delroy Hernandez MD Primary Care Provider Active Start: March 16, 2025 End: March 16, 2025 Sachin Medina MD Attending Provider Activ e Start: March 16, 2025 End: March 16, 2025 Team Status: Inactive Member Role Status Dates Delroy Hernandez MD Primary Care Provider Active Start: May 27, 2025 End: May 27, 2025 Kurtis Rodriguez [facility] DO [facility] Attending Provider Active Start: May 27, 2025 End: May 27, 2025 Pcu Rn Relationship Specialty Start Date End Date Delroy Hernandez MD [address] [place] [id number] PCP - General Family Medicine 05/31/25 Team Status: Inactive Member Role Status Dates Delroy Hernandez MD Primary Care Provider Active Start: June 30, 2025 End: June 30, 2025 Delroy Hernandez MD Attending Provider Active St art: June 30, 2025 End: June 30, 2025 Goals (unrecognized section and content) Goals may be documented in a n alternate section FOR RECORDS PERTAINING TO PATIENTS WHO ARE OR HAVE BEEN ENROLLED IN A CHEMICAL DEPENDENCY/SUBSTANCEABUSE PROGRAM, SOME INFORMATION MAY BE OMITTED. This clinical summary was aggregated from multiple sources. Caution should be exercised in using it in the provision of clinical care. This summary normalizes information from multiple sources, and as a consequence, information in this document may materially change the coding, format and clinical context of patient data. In addition, data may be omitted in some cases. CLINICAL DECISIONS SHOULD BE BASED ON THE PRIMARY CLINICAL RECORDS. [facility] [facility]. provides no warranty or guarantee of the accuracy or completeness of information in this document.
[2025-07-07 17:22] LABS: Thyroid Stimulating Hormone 1.352 uIU/mL (0.358-3.740)
== END 2025-07-07 16:18 | disposition home or self-care (01) ==
PROVIDERS: PCP Family Medicine; Visit Provider Family Medicine
DX: E03.9 Hypothyroidism, unspecified (principal)
CPT/HCPCS: 36415; 84439; 84443